=== PATIENT | male | born 1970 | race Caucasian/White ===

== ENCOUNTER 2018-09-05 06:07 | Inpatient (IN) ==
--- NOTE | 2018-09-05 07:01 | Diag Imaging Result Doc PS360 ---
EXAM: CHEST-1 VIEW HISTORY: dyspnea TECHNIQUE: Chest single view COMPARISON: 03/05/2018 FINDINGS: There is a moderate to large right-sided pleural effusion with a small left pleural effusion. No cardiomegaly. Dense infiltrates throughout the right lung with smaller infiltrates in the left lung. There is bilateral basilar atelectasis. IMPRESSION: Bilateral infiltrates with pleural effusions and atelectasis Electronically signed by Yaakov Whitlock 09/05/2018 6:59 AM
[2018-09-05 07:08] LABS: BASO# 0.02 X1000 (0.0-0.2); BASO% 0.1 % (0.0-0.8); EOS# 0.02 X1000 (0.0-0.7); EOS% 0.1 % (0.0-10.0); HEMATOCRIT 36.4 % (42.0-52.0); HEMOGLOBIN 12.9 g/dL (14.0-18.0); IMM GRAN# 0.11 X1000 (0.0-0.04); IMM GRAN% 0.5 % (0.0-0.5); LYMPH# 1.02 X1000 (1.2-3.4); LYMPH% 4.5 % (20.5-51.1); MCH 30.1 PG (27-31); MCHC 35.4 g/dL (33-37); MCV 84.8 FL (81-99); MONO# 1.68 X1000 (0.11-0.59); MONO% 7.4 % (1.7-9.3); MPV 9.7 FL (7.4-10.4); NEUT# 19.75 X1000 (1.4-6.5); NEUT% 87.4 % (42.2-75.2); PLT 366 X1000 (130-400); RBC 4.29 XMIL (4.7-6.1); RDW 12.1 % (11.5-14.5)
[2018-09-05] MEDS ORDERED: DUONEB (A & A) INH ONE (07:30)
[2018-09-05 07:35] LABS: ESTIMATED GFR > 60
[2018-09-05 07:39] LABS: AGAP 17; BUN 10 mg/dL (8-22); CHLORIDE 86 mmol/L (98-107); COSMO 248; CREATININE 0.6 mg/dL (0.7-1.2); GLUCOSE 120 mg/dL (70-104); POTASSIUM 5.3 mmol/L (3.5-5.1); SODIUM 123 mmol/L (136-145); TCO2 20 mmol/L (25-35)
--- NOTE | 2018-09-05 07:44 | PROVIDER DOCUMENTATION ---
HPI-Respiratory General - General Chief Complaint: Possible Sepsis-D Stated Complaint: SOB X A COUPLE OF DAYS/COUGH BLOOD/COPD Time Seen by Provider: 09/05/18 07:08 Source: patient, family Allergies/Adverse Reactions: Patient Allergies Allergy/AdvReac Type Severity Reaction Status Date / Time No Known Allergies Allergy Verified 02/28/18 09:07 Home Medications: Home Medication List Medication Instructions Recorded Confirmed Last Taken Type Albuterol Sulfate Inhaler 2 puff INH Q6H PRN PRN #1 inhaler 01/22/18 02/28/18 02/28/18 Rx [Ventolin Hfa] Ferrous Sulfate 325 mg PO DAILY #90 tab 01/22/18 02/28/18 02/28/18 Rx Folic Acid 1 mg PO DAILY #90 tab 01/22/18 02/28/18 02/28/18 Rx Thiamine [Vitamin B-1] 100 mg PO DAILY #60 tab 01/22/18 02/28/18 02/28/18 Rx Nicotine Patch [Nicoderm Patch] 21 mg TD DAILY #30 patch.[id number] 03/15/18 Unknown Rx Oxycodone HCl/Acetaminophen 1 each PO Q8H PRN PRN #30 tablet 03/15/18 Unknown Rx [Percocet 10-325 mg Tablet] - History of Present Illness-Resp Nature of Presenting Problem: Pt is a 48 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 The CP is present on the R side of the chest and is localized. Worse with deep breaths. The pain has been there for 2-3 days and is progressively getting worse. Pt has been needing O2 at home. Pt has been sweating more than usual. Has been coughing up blood and phlegm. Denies any fever. Quality of Pain: reports: sharp Severity in ED: reports: moderate Onset/Duration: reports: 2 days ago Timing: reports: still present, getting worse Context: denies: recent foreign travel, insect bite (possible tick) Cough Quality/Degree: reports: mild, sputum, blood streaked sputum Episode Frequency: occasional episodes Current Respiratory Medication Therapy: Initiated see nurses note Modifying Factors: improves with: coughing, deep breath, oxygen Associated Symptoms: reports: chest pain/soreness, cough, hurts to breathe, shortness of breath Similar Symptoms Previously?: Yes Recently seen or treated by another doctor?: No Review of Systems - Adult - REVIEW OF SYSTEMS - ADULT Constitutional: reports: see HPI Eyes: denies: no symptoms reported Ears, Nose, Mouth & Throat: denies: no symptoms reported Cardiovascular: reports: see HPI Respiratory: reports: see HPI Gastrointestinal: denies: no symptoms reported Genitourinary: denies: no symptoms reported Musculoskeletal: denies: no symptoms reported Integumentary: denies: no symptoms reported Neurological: denies: no symptoms reported Psychiatric: denies: no symptoms reported Endocrine: reports: see HPI Hematologic/Lymphatic: denies: no symptoms reported Allergic/Immunologic: denies: no symptoms reported Past History - Adult - PAST MEDICAL HISTORY-ADULT Review of Records: reports: Old Records Reviewed, Nursing Assessment Review, Medications Reviewed, Social history reviewed & non-contributory. Major Childhood Illnesses: reports: denies history Cardiovascular: reports: denies history Respiratory: reports: lung disease, pneumonia Gastrointestinal: reports: denies history Obstetrical/Gynecological: reports: denies history Genitourinary: reports: denies history Musculoskeletal: reports: denies history Neurological: reports: denies history Psychiatric: reports: denies history Endocrine/Immune: reports: denies history Other Conditions: reports: denies history Additional History: Fake left eye - PRIOR SURGERIES/PROCEDURES Surgical/Procedure History: reports: none, other - PRIOR HOSPITALIZATIONS Prior Hospitalizations: reports: for similar symptoms - IMMUNIZATION STATUS Childhood Immunizations: See Nurse Assessment Flu Vaccine: See Nurse Assessment - FAMILY HISTORY Family History: reviewed, not pertinent Physical Exam-General - PHYSICAL EXAM-ADULT Initial Vital Signs Reviewed: Yes - CONSTITUTIONAL General Appearance: alert, mild distress - EYES Eyes: PERRL/EOMI - HEAD, EARS, NOSE, MOUTH & THROAT HENMT: normocephalic/atraumatic - NECK Neck: full range of motion, supple - RESPIRATORY Respiratory: accessory muscle use, rhonchi, wheezing, pain on inspiration. negative: chest non-tender - CARDIOVASCULAR Cardiovascular: normal peripheral pulses, regular rate, rhythm, no edema - GASTROINTESTINAL (ABDOMEN) Abdominal Exam: non tender, soft - MUSCULOSKELETAL Extremity: no pedal edema - SKIN Integumentary: normal color, warm/dry - NEUROLOGIC Neurologic: grossly normal - PSYCHIATRIC Psych/Mental Status: normal mood/affect - HEART Score HEART Score: History: Slightly Suspicious HEART Score: ECG: Non-Specific Repolarization Disturbance/LBBB/PM HEART Score: Age: 45-65 Years HEART Score: Risk Factors for Atherosclerotic Disease: 1 or 2 Risk Factors HEART Score: Troponin: < or = Normal Limit Total HEART Score:: 3 Progress - PLAN OF CARE/RESULTS Progress/Plan/Lab Results: Vital Signs - 8 hr 09/05/18 06:19 09/05/18 08:52 Temperature 97.9 F Pulse Rate 119 H Respiratory Rate 22 Blood Pressure 137/83 O2 Sat by Pulse Oximetry 88 L 92 L 09/05/18 08:28 Influenza Screen - Final Nasopharyngeal Laboratory Results - last 24 hr 09/05/18 09/05/18 09/05/18 06:47 06:47 06:47 WBC 22.60 H RBC 4.29 L Hgb 12.9 L Hct 36.4 L MCV 84.8 MCH 30.1 MCHC 35.4 RDW Std Deviation 12.1 Plt Count 366 MPV 9.7 Immature Gran % (Auto) 0.5 Neut % (Auto) 87.4 H Lymph % (Auto) 4.5 L [place] % (Auto) 7.4 Eos % (Auto) 0.1 Baso % (Auto) 0.1 Immature Gran # (Auto) 0.11 H Neut # (Auto) 19.75 H Lymph # (Auto) 1.02 L [place] # (Auto) 1.68 H Eos # (Auto) 0.02 Baso # (Auto) 0.02 Sodium 123 L Potassium 5.3 H Chloride 86 L Carbon Dioxide 20 L Anion Gap 17 BUN 10 Creatinine 0.6 L Estimated GFR/1.73 m2 > 60 BUN/Creatinine Ratio 17 Glucose 120 H Calculated Osmolality 248 Calcium 9.0 Troponin T < 0.010 [id number]-Sqfueynbpbi Pept Plasma Lactate 09/05/18 09/05/18 06:47 06:57 WBC RBC Hgb Hct MCV MCH MCHC RDW Std Deviation Plt Count MPV Immature Gran % (Auto) Neut % (Auto) Lymph % (Auto) [place] % (Auto) Eos % (Auto) Baso % (Auto) Immature Gran # (Auto) Neut # (Auto) Lymph # (Auto) [place] # (Auto) Eos # (Auto) Baso # (Auto) Sodium Potassium Chloride Carbon Dioxide Anion Gap BUN Creatinine Estimated GFR/1.73 m2 BUN/Creatinine Ratio Glucose Calculated Osmolality Calcium Troponin T Pfl-[id number]-Wokpnfcsiwn Pept 3769 H Plasma Lactate 1.7 Orders Category Date Time Status IV Insertion ORDERED Care 09/05/18 06:36 Completed cxr [CHEST-1 VIEW] [RAD] Stat Exams 09/05/18 06:36 Completed BASIC METABOLIC PANEL [CHEM] Stat Lab 09/05/18 06:47 Completed BLOOD CULTURE [BLDCUL] Stat Lab 09/05/18 06:57 Ordered CBC WITH DIFF [HEME] Stat Lab 09/05/18 06:47 Completed INFLUENZA SCREEN A/B Stat Lab 09/05/18 08:28 Completed LACTATE, PLASMA [CHEM] Stat Lab 09/05/18 06:57 Completed TROPONIN T Stat Lab 09/05/18 06:47 Completed pro-bnp [PRO B-NATRIURETIC PEPTIDE] Stat Lab 09/05/18 06:47 Completed Albuterol 2.5MG/Ipratrop 0.5MG [Duoneb (A & A)] Med 09/05/18 07:30 Discontinued 3 ml INH NOW ONE Azithromycin 500 mg/Ns [Zithromax 500 mg/Ns] Med 09/05/18 08:50 Active 500 mg in 250 ml IV NOW CefTRIAXONE [Rocephin] 1 gm Med 09/05/18 08:50 Discontinued 0.9% Sodium Chloride Inj [Ns] 50 ml IV NOW Aerosol Treatments Routine Oth 09/05/18 07:30 Completed Aerosol Treatments Stat Oth 09/05/18 07:30 Completed EKG [EKG] Stat Ther 09/05/18 06:19 Ordered Result Diagrams: 09/05/18 06:47 09/05/18 06:47 - CONSULTS/PCP/HOSPITALIST Notification #1 *Consult/PCP/Hospitalist*: Alessandra Time Discussed: 09:40 Reason/Comments: Admission Consult Disposition: Will see in ED (d/w Alessandra JONES, will see the pt in ER.) Departure - Departure Date of Disposition Decision: 09/05/18 Time of Disposition Decision: 09:40 DIAGNOSIS: Pneumonia, Pleural effusion, Shortness of breath, Hyperkalemia Disposition: ADMITTED INPATIENT 09 Certified Medical Emergency: Emergent Condition: Stable Referrals and Follow-Ups: None,PCP [Primary Care Provider] - - Critical Care Note This patient required my direct & personal management of CC.: No Attestation - Physician/ LIANE Attestation Patient care was provided by Advanced Practice Provider:: No The physician spent face to face time with patient:: Yes Advanced Practice Provider documentation review:: Supervising physician onsite and consulted in the evaluation and care of this patient. The physician did have a face to face encounter with the patient.
[2018-09-05] MEDS ORDERED: ROCEPHIN 1 GM in NS 50 ML IV ONE (08:50)
[2018-09-05] MEDS ORDERED: ZITHROMAX 500 MG/NS 500 MG/250 ML IVPB IV ONE (08:50)
[2018-09-05] MEDS ORDERED: ZOFRAN IV PRN (10:29)
[2018-09-05] MEDS ORDERED: M.V.I.-12 10 ML, FOLIC ACID 1 MG, MAGNESIUM SULFATE 1 GM, THIAMINE 100 MG in NS 1,000 ML IV ONE (10:33)
[2018-09-05] MEDS ORDERED: DUONEB (A & A) INH PRN (10:38)
[2018-09-05] MEDS ORDERED: LIBRIUM PO SCH (10:45)
--- NOTE | 2018-09-05 11:00 | Diag Imaging Result Doc PS360 ---
EXAM: CT THORAX W/O CONTRAST HISTORY: right pleural effusion s/p pleurodesis TECHNIQUE: CT chest without contrast COMPARISON: 03/06/2018 FINDINGS: There is a moderate to large right-sided pleural effusion measuring 7.4 cm posteriorly and inferiorly in the midline. This is similar to the prior exam. There is a small left pleural effusion which is slightly larger than on the prior study. There are dense multifocal bilateral nodular infiltrates. Infiltrates and atelectasis are most prominent within the right upper and lower lobes. The heart is not enlarged. No thoracic aortic aneurysm. There are markedly enlarged axillary lymph nodes similar to the prior exam there are enlarged mediastinal and hilar lymph nodes fairly similar to the prior exam. Previously there was a left-sided chest tube. This has been removed. No pneumothorax on the current exam. IMPRESSION: 1.Dense multifocal nodular infiltrates/nodules more pronounced than on the prior study 2.Large right pleural effusion similar to the prior study 3.Small left pleural effusion which is slightly larger than the prior study 4.Enlarged axillary and mediastinal lymph nodes similar to the prior study 5.Prominent atelectasis in the right lower lobe This exam was performed using automated exposure control, adjustment of mA or kV according to patient size, and/or use of iterative reconstruction technique. Electronically signed by Yaakov Whitlock 09/05/2018 10:57 AM
[2018-09-05] MEDS ORDERED: LIDODERM TOP ONE (11:23)
[2018-09-05] MEDS ORDERED: VANCOMYCIN IV PER PHARMACY MISC SCH (11:30)
[2018-09-05] MEDS: DUONEB (A & A) INH SCH ×4 (11:54→23:35)
--- NOTE | 2018-09-05 11:56 | HISTORY AND PHYSICAL ---
ADDENDUM: I agree with most components of history, physical, assessment, and plan. In brief, Mr. Beltran is a 48-year-old, man with a past history of Castleman's disease, bilateral pleural effusion, status gross pleurodesis bilaterally in March 2018. Comes in with progressive shortness of breath, cough with expectoration, hemoptysis, and right-sided chest pain of 2 weeks' duration which was getting significantly worse over the last 48 hours. SUBJECTIVE: He is complaining of right-sided chest pain which gets worse while lying down and on respiration. His family is at bedside including who is a surrogate decision maker. All of their questions have been answered. He states that his last 48 hours, every time he coughs up, he is producing blood-tinged sputum. VITAL SIGNS: Currently suggest temperature of 97.9 degrees, pulse 119, respiratory rate 22, blood pressure 140/83, saturating 92% on 3 L nasal cannula. PHYSICAL EXAMINATION: He does not appear in any acute distress except mild distress because of pain and shortness of breath. Oral cavity has oral thrush. No pallor, cyanosis, clubbing, or icterus. He has artificial eye on the left. Right pupil is adequately reacting to light. Significantly decreased air entry in the right infrascapular region with inspiratory crackles and dullness to percussion. Adequate air entry on left hemithorax except left base where it has inspiratory crackles. S1, S2 normal. Tachycardic. No murmur, rub, or gallop. Abdomen is soft, nontender. Bilateral lower extremity edema. LABS: Labs are significant for leukocytosis, normocytic anemia, hyponatremia, hyperkalemia, hypochloremia, low bicarbonate, normal BUN and creatinine, elevated proBNP, normal lactate. Blood culture is in lab. Sputum culture is pending. CT scan of the chest reviewed which had suggested dense multifocal nodular infiltrates on the right side, large right-sided pleural effusion, small left-sided pleural effusion, enlarged axillary and mediastinal lymph nodes. ASSESSMENT AND PLAN: 1. Sepsis due to right lung pneumonia. Start him on intravenous vancomycin and Zosyn. Follow up blood cultures, sputum cultures. 2. Recurrent right pleural effusion. We will consult surgery and according to their recommendation, we will obtain ultrasound thoracentesis and we will send pleural fluid for infectious etiology analysis. 3. Oral thrush. We will treat it with nystatin. 4. Volume overloaded bilateral edema of lower extremities and elevated proBNP. We will start him on intravenous Lasix. 5. Hyponatremia, Hypochloremia, hyperkalemia: Monitor serial BMP. 6. Alcohol abuse and tobacco abuse. Continue thiamine and multivitamin. 5. Disposition. I will admit the patient to the hospital for close monitoring of his cardiorespiratory status. Plan of care discussed with the patient and patient's at bedside. All of their questions have been answered. cc: Rex Cobos MD MTDD
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
--- NOTE | 2018-09-05 14:55 | GENERAL SURGERY CONSULTATION ---
DATE: 09/05/2018 REQUESTING PHYSICIAN: Hospitalist service. REASON FOR CONSULTATION: Recurrent pleural effusion. HISTORY OF PRESENT ILLNESS: A 48-year-old male with a history of Castleman's disease who presents now with chest pain and shortness of breath. He had been seen by my partner, Dr. Jay previously in the past and has had a chemical pleurodesis and drainage, but he has developed reaccumulation on the right side. He had a CT scan of his chest, which confirms multifocal nodular infiltrates in the lung and large right pleural effusion with lymphadenopathy. I was asked to weigh an opinion. PAST MEDICAL HISTORY: 1. Castleman's. 2. Hypertension. PAST SURGICAL HISTORY: Includes previous chest tubes with chemical pleurodesis. SOCIAL HISTORY: Current smoker. HOME MEDICATIONS: 1. Albuterol. 2. Iron. 3. Folic acid. 4. Thiamines. 5. Nicotine patch. 6. Oxycodone ALLERGIES: None. FAMILY HISTORY: Reviewed with the patient and noncontributory. REVIEW OF SYSTEMS: A full 10 point review of systems obtained negative except as specified in HPI. PHYSICAL EXAMINATION: Vital Signs: Patient is currently afebrile. His vital signs stable. General: No acute distress but appears chronically ill male, looks stated age. HEENT: Normocephalic, atraumatic. Pupils equal, round, reactive to light. Mucous membranes moist. Oropharynx benign. Neck: Supple, trachea midline. Cardiovascular: Regular rate and rhythm. Lungs: Decreased breath sounds noted to the right. Abdomen: Soft nontender nondistended. Extremities: Moves all extremities. Neurologic: Grossly intact. Skin: No signs of jaundice. Vascular: All extremities perfused. LABORATORY: White blood cell count 22,000, platelet count 366,000 sodium is 123, potassium is 5.3. BNP is almost 3700. CT scan and radiographic images reviewed and noted above. ASSESSMENT AND PLAN: A 48-year-old gentleman with recurrent pleural effusion in the setting of Castleman's syndrome. 1. Multiple medical comorbidities currently being managed by the hospitalist service. 2. Recurrent pleural effusion. At this time, patient wants to proceed with thoracentesis first but I imagine he is likely going to need something like a PleurX catheter. We will proceed with thoracentesis tomorrow by Radiology. We will continue supportive care for now. cc: Luis Kirk MD
[2018-09-05 15:12] LABS: INR 0.96; PROTIME 13.5 Seconds (11.0-16.0)
[2018-09-05] MEDS ORDERED: VANCOMYCIN 2 GM in NS 500 ML IV ONE (18:00)
[2018-09-05] MEDS: ZOSYN 3.375 GM in NS 50 ML IV SCH ×2 (18:29→18:30)
[2018-09-05] MEDS: LASIX IV SCH ×2 (18:30→20:04)
[2018-09-05] MEDS: MYCOSTATIN SUSP PO SCH ×2 (18:31→22:25)
[2018-09-05] MEDS ORDERED: NS 500 ML ONE (19:21)
[2018-09-05] MEDS: MORPHINE IV PRN (20:05)
[2018-09-05 20:21] LABS: AGAP 11; BUN 11 mg/dL (8-22); CALCIUM 8.7 mg/dL (8.8-10.2); CHLORIDE 89 mmol/L (98-107); COSMO 252; CREATININE 0.7 mg/dL (0.7-1.2); ESTIMATED GFR > 60; GLUCOSE 91 mg/dL (70-104); POTASSIUM 4.4 mmol/L (3.5-5.1); SODIUM 126 mmol/L (136-145); TCO2 26 mmol/L (25-35)
[2018-09-05] MEDS: ULTRAM PO PRN (22:24)
[2018-09-06] MEDS: MORPHINE IV PRN ×4 (00:54→20:49)
[2018-09-06] MEDS: ZOSYN 3.375 GM in NS 50 ML IV SCH ×5 (01:27→23:27)
[2018-09-06] MEDS: ULTRAM PO PRN ×5 (02:43→22:33)
[2018-09-06] MEDS: DUONEB (A & A) INH SCH ×6 (03:40→23:06)
[2018-09-06] MEDS ORDERED: TYLENOL PO PRN (05:17)
[2018-09-06] MEDS: VANCOMYCIN 1,500 MG in NS 250 ML IV SCH ×2 (06:04→18:49)
--- NOTE | 2018-09-06 07:24 | EKG Report ---
Test Performed on : 09/06/2018 05:28:22 AM Test Reason : Tachycardia Blood Pressure : / mmHG Vent. Rate : 130 BPM Atrial Rate : 130 BPM P-R Int : 134 ms QRS Dur : 082 ms QT Int : 294 ms P-R-T Axes : 066 075 052 degrees QTc Int : 432 ms Sinus tachycardia. Possible Left atrial enlargement Borderline ECG When compared with ECG of 05-SEP-2018 06:33, (Unconfirmed) No significant change was found Confirmed by Samra ELIZONDO, Jason ([id number]) on 09/06/2018 9:08:02 AM
[2018-09-06 07:32] LABS: BASO# 0.03 X1000 (0.0-0.2); BASO% 0.2 % (0.0-0.8); EOS# 0.24 X1000 (0.0-0.7); EOS% 1.7 % (0.0-10.0); HEMOGLOBIN 12.5 g/dL (14.0-18.0); IMM GRAN# 0.08 X1000 (0.0-0.04); IMM GRAN% 0.6 % (0.0-0.5); LYMPH# 0.53 X1000 (1.2-3.4); LYMPH% 3.7 % (20.5-51.1); MCH 30.2 PG (27-31); MCHC 34.7 g/dL (33-37); MONO% 8.5 % (1.7-9.3); NEUT# 12.08 X1000 (1.4-6.5); NEUT% 85.3 % (42.2-75.2); PLT 336 X1000 (130-400); RBC 4.14 XMIL (4.7-6.1); RDW 12.6 % (11.5-14.5); WBC 14.16 X1000 (4.8-10.8)
[2018-09-06 07:33] LABS: AGAP 14; ALB/GLOB RATIO 1.3; ALBUMIN 3.4 g/dL (3.5-5.0); ALKALINE PHOSPHATASE 138 U/L (32-122); BUN 14 mg/dL (8-22); CALCIUM 8.4 mg/dL (8.8-10.2); CHLORIDE 87 mmol/L (98-107); COSMO 253; ESTIMATED GFR > 60; GLUCOSE 158 mg/dL (70-104); GOT 42 U/L (10-34); GPT 13 U/L (10-44); POTASSIUM 4.5 mmol/L (3.5-5.1); SODIUM 124 mmol/L (136-145); TCO2 23 mmol/L (25-35)
--- NOTE | 2018-09-06 07:38 | EKG Report ---
Test Performed on : 09/05/2018 06:33:09 AM Test Reason : shortness of breath and chest pain Blood Pressure : / mmHG Vent. Rate : 110 BPM Atrial Rate : 110 BPM P-R Int : 126 ms QRS Dur : 092 ms QT Int : 336 ms P-R-T Axes : 072 014 041 degrees QTc Int : 454 ms Sinus tachycardia. Cannot rule out Anterior infarct , age undetermined Abnormal ECG When compared with ECG of 28-FEB-2018 08:23, No significant change was found Unconfirmed Result
[2018-09-06 08:02] LABS: BANDS 4 % (0-1); EOS 4 % (1-10); LYMPHS 4 % (21-51); MONO 4 % (1-9); SEGS 84 % (42-75)
[2018-09-06] MEDS ORDERED: ZITHROMAX PO SCH (09:00)
[2018-09-06] MEDS ORDERED: ROCEPHIN 1 GM in NS 50 ML IV SCH (09:00)
--- NOTE | 2018-09-06 09:36 | GENERAL SURGERY PROGRESS NOTE ---
DATE: 09/06/2018 SUBJECTIVE: Patient doing okay. He has had a run of tachycardia in the 140s after a coughing spell. He is currently getting an EKG. He denies any kind of other issues. OBJECTIVE: Vital Signs: Patient is currently afebrile. Again, his heart rate is in the 140s. Blood pressure is stable. General: No acute distress. HEENT: Normocephalic, atraumatic. Pupils equal, round, reactive to light. Mucous membranes moist. Oropharynx benign. Neck: Supple, trachea midline. Cardiovascular: Tachycardic in the 140s. Lungs: No real significant change. Still with decreased breath sounds on the right with coarse sounds noted bilaterally. Abdomen: Soft, nontender, nondistended. Extremities: Moves all extremities. Neurologic: Grossly intact. Skin: No signs of jaundice. Vascular: All extremities perfused. LABORATORY: None this morning as of yet. ASSESSMENT/PLAN: 48-year-old male with recurrent effusion with Castleman's disease. At this time, we will try to get thoracentesis on the right side by Radiology. He might ultimately require PleurX catheter since he has had a chemical pleurodesis in the past. We will continue to follow. cc: Luis Kirk MD
[2018-09-06] MEDS: LASIX IV SCH ×2 (09:40→20:48)
[2018-09-06] MEDS: MYCOSTATIN SUSP PO SCH ×4 (09:40→20:49)
--- NOTE | 2018-09-06 14:19 | Diag Imaging Result Doc PS360 ---
EXAM: CHEST-2 VIEWS 09/06/2018 HISTORY: TO FOLLOW THORACENTESIS PATIENT DONE TECHNIQUE: Inspiratory and expiratory chest following right-sided thoracentesis COMMENT: The large right pleural fluid collection which was present on 09/05/2018 has diminished considerably in volume following thoracentesis. There is still a fair amount of retained fluid. There is pleural thickening or loculated fluid on the left as well. There is alveolar opacity throughout much of the right lung and in the mid left lung. The lung is better expanded on the right. There is no evidence of pneumothorax. IMPRESSION: Improved right pleural effusion. No evidence of pneumothorax. Electronically signed by Joaquin Vargas 09/06/2018 2:17 PM
--- NOTE | 2018-09-06 14:23 | Diag Imaging Result Doc PS360 ---
EXAM: US THORACENTESIS W/IMAGE GUIDE 09/06/2018 HISTORY: Recurrent right sided pleural effusion TECHNIQUE: Right ultrasound-guided thoracentesis COMMENT: The risks and benefits of the procedure including the possibility of bleeding infection and pneumothorax or reaction to lidocaine was discussed with the patient and he agreed to the procedure. Following sterile preparation the skin posteriorly and administration 1% lidocaine to the skin and deeper soft tissues, the thoracentesis catheter was placed and subsequently 1400 mL of grossly bloody fluid was aspirated. There are no immediate complications. IMPRESSION: Successful ultrasound-guided right thoracentesis. Electronically signed by Joaquin Vargas 09/06/2018 2:20 PM
[2018-09-06 14:50] LABS: BODY FLUID SOURCE PLEURAL FLUID
[2018-09-06 15:06] LABS: GLUCOSE BODY FLUID 2 mg/dL; TOTAL PROT BODY FLUID 3.2 g/dL
[2018-09-06 15:17] LABS: LDH BODY FLUID 1501 U/L
[2018-09-06 15:19] LABS: BODY FLUID SOURCE PLEURAL FLUID
[2018-09-06 15:20] LABS: WBC BF 597 /cumm
[2018-09-06 15:21] LABS: MONOS 3 %; POLYS 97 %
--- NOTE | 2018-09-06 16:24 | PROGRESS NOTE ---
DATE: 09/06/2018 SUBJECTIVE: Overnight events. Mr. Beltran had an episode of tachycardia when he had a coughing spell and heart rate had increased to 140. The EKG suggests sinus tachycardia. I saw the patient right after his thoracentesis. He feels a little better than he was before. His shortness of breath is also better. We discussed about his pneumonia, pleural fluid, lower extremity edema, his Castleman disease, and probably need for the Pleurx catheter. Family is at bedside. All of their questions have been addressed. OBJECTIVE: Vital Signs: Currently, vital signs detect temperature of 98.9 degrees, pulse 123, respiratory rate 20, blood pressure 120/72 saturating 97% on 5 L nasal cannula. General: On physical examination, he does not appear in any acute distress. His oral thrush is present. Lungs: Air entry bilaterally equal in suprascapular region. He does have decreased air entry with inspiratory crackles bilateral infrascapular region, however, improved air entry on the right infrascapular region as compared to before. Heart: His S1, S2 was normal. He has sinus tachycardia on bedside monitor. Abdomen: Soft. Nontender. Extremities: Bilateral lower extremity edema. He has right pupil adequately reacting to light. He has artificial eye on the left eye. He is alert and oriented x3. LABORATORY: Labs suggestive of improving leukocytosis. Normocytic anemia. Normal platelet count. Persistent hyponatremia. Hypochloremia. Stable kidney function. He also has elevated alkaline phosphatase and LDH with elevated proBNP and hypoproteinemia. The pleural fluid analysis is pending. ASSESSMENT AND PLAN: 1. Sepsis due to right lung pneumonia. Follow up blood culture, sputum culture, and pleural fluid culture results. Continue intravenous vancomycin and intravenous Zosyn. 2. Acute hypoxic respiratory failure in the setting of right lung pneumonia as well as bilateral pleural effusions, predominantly on the right. Continue oxygenation to maintain saturation more than 94%. He is now status post thoracentesis on the right side. Surgery on board for long-term management of recurrent right pleural effusion. 3. Oral thrush. Continue nystatin. Continue intravenous diuretics for acute hypoxic respiratory failure, and also for bilateral lower extremity edema. 4. Alcohol abuse. He denies known history of alcohol withdrawal. I will hold off on giving any benzodiazepine for now. Continue him on thiamine and folic acid. 5. Chest pain. Continue him on tramadol as needed, and I will order lidocaine patch. 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 We will consult Hemonc as needed. 6. Continue history of chronic obstructive pulmonary disease. Continue him on albuterol and ipratropium nebulization. 7. Disposition: Patient remains inside the hospital. Considering his persistent hypoxia and tachycardia, I will initiate transfer to [facility]. Plan of care discussed with the patient and his at bedside. All of their questions have been answered. cc: Rex Cobos MD MTDD
[2018-09-07] MEDS: MORPHINE IV PRN ×6 (01:38→21:30)
[2018-09-07] MEDS: ULTRAM PO PRN ×5 (02:47→19:15)
[2018-09-07] MEDS: DUONEB (A & A) INH SCH ×6 (03:09→23:20)
[2018-09-07] MEDS: ZOSYN 3.375 GM in NS 50 ML IV SCH ×4 (04:30→22:44)
[2018-09-07] MEDS: VANCOMYCIN 1,500 MG in NS 250 ML IV SCH ×2 (05:04→19:15)
[2018-09-07 05:44] LABS: BASO# 0.03 X1000 (0.0-0.2); BASO% 0.3 % (0.0-0.8); EOS# 1.18 X1000 (0.0-0.7); EOS% 11.1 % (0.0-10.0); HEMATOCRIT 32.8 % (42.0-52.0); HEMOGLOBIN 11.1 g/dL (14.0-18.0); IMM GRAN# 0.07 X1000 (0.0-0.04); IMM GRAN% 0.7 % (0.0-0.5); LYMPH# 0.88 X1000 (1.2-3.4); LYMPH% 8.3 % (20.5-51.1); MCHC 33.8 g/dL (33-37); MCV 88.6 FL (81-99); MONO# 1.58 X1000 (0.11-0.59); MONO% 14.8 % (1.7-9.3); MPV 9.9 FL (7.4-10.4); NEUT% 64.8 % (42.2-75.2); PLT 282 X1000 (130-400); RDW 12.7 % (11.5-14.5); WBC 10.64 X1000 (4.8-10.8)
[2018-09-07 06:10] LABS: AGAP 11; BUN 22 mg/dL (8-22); CALCIUM 8.2 mg/dL (8.8-10.2); CHLORIDE 88 mmol/L (98-107); COSMO 259; CREATININE 0.9 mg/dL (0.7-1.2); ESTIMATED GFR > 60; GLUCOSE 148 mg/dL (70-104); PHOSPHORUS 2.8 mg/dL (2.7-4.5); POTASSIUM 3.7 mmol/L (3.5-5.1); SODIUM 126 mmol/L (136-145); TCO2 27 mmol/L (25-35)
[2018-09-07] MEDS: LASIX IV SCH ×2 (08:03→20:02)
[2018-09-07] MEDS: KLOR-CON PO SCH ×2 (08:03→11:06)
[2018-09-07] MEDS: THERA M PLUS PO SCH (08:03)
[2018-09-07] MEDS: VITAMIN B-1 PO SCH (08:03)
[2018-09-07] MEDS: MYCOSTATIN SUSP PO SCH ×4 (08:03→20:02)
--- NOTE | 2018-09-07 08:53 | GENERAL SURGERY PROGRESS NOTE ---
DATE: 09/07/2018 SUBJECTIVE: Patient doing okay. He was transferred to the CICU secondary to tachycardia, but he seems to be doing better. He did have 1400 mL of fluid drawn off by ultrasound-guided thoracentesis. OBJECTIVE: Vital Signs: Patient is currently afebrile. Heart rate in the 1-teens, but looks regular. Blood pressure stable. General: No acute distress. HEENT: Normocephalic, atraumatic. Pupils equal, round, reactive to light. Mucous membranes moist. Oropharynx benign. Neck: Supple trachea midline. Cardiovascular: Regular rate and rhythm with some mild tachycardia. Lungs: Grossly clear. Abdomen: Soft, nontender, nondistended. Extremities: Moves all extremities. Neurologic: Grossly intact. Skin: No signs of jaundice. Vascular: All extremities perfused. ASSESSMENT AND PLAN: A 48-year-old status post thoracentesis of the right chest. Status post thoracentesis. At this time patient seems to be breathing okay. We would like to see what the chest x-ray in the next couple of days looks like to see if he is reaccumulating fluid. Otherwise, continue supportive care. cc: Luis Kirk MD
--- NOTE | 2018-09-07 11:23 | PROGRESS NOTE ---
DATE: 09/07/2018 INTERVAL HISTORY: Mr. Beltran was transferred to [facility]. He had tolerated ultrasound-guided thoracentesis. He did not have any other acute overnight events. He does not have any more hemoptysis. I discussed with him about consulting his hematology oncologist using incentive spirometry and I also discussed with him about following up with the pleural fluid culture results. His heart rate has been trending down slowly currently. OBJECTIVE: Vital signs: Temperature of 98.3 degrees, pulse of 101, respiratory rate 20, blood pressure of 108/72. He is saturating 90% 5 to 6 L nasal cannula. General: On physical examination, he does not appear in any acute distress. HEENT: His oral thrush is improved. Lungs: Significantly decreased air entry bilateral infrascapular region with inspiratory crackles. However, improved from my previous examination. Cardiovascular: S1, S2 normal. Tachycardic. No murmur, rub, or gallop. Abdomen: Soft, nontender. Extremities: Bilateral lower extremity edema is present. Neurologic: Right pupil adequately reacting to light. Left has an artificial eye. He is alert and oriented x3. LABORATORY DATA: Suggesting resolution of leukocytosis, normocytic anemia, normal platelet count, hyponatremia, hypochloremia. Stable kidney function. MICROBIOLOGY: His pleural fluid, sputum and blood cultures are in lab. So far no growth to date. ASSESSMENT AND PLAN: 1. Sepsis due to right lung pneumonia leading to acute hypoxic respiratory failure because of predominantly right-sided pleural effusion and persistent left-sided pleural effusion. Follow up culture data. Initial pleural fluid analysis suggests exudative pleural fluid. Continue intravenous vancomycin, intravenous Zosyn, oxygenation to maintain saturation more than 92%. 2. Status post thoracenteses on 09/06/2018. Surgery on board for evaluating the need for possible surgical intervention since he failed bilateral pleurodesis in March 2018 and now has recurrence of his pleural effusion. I will also consult Hematology Oncology considering his right lung patchy nodules to see if his Castleman disease is contributing. 3. Oral thrush. Continue nystatin. 4. Continue intravenous diuretics for acute hypoxic respiratory failure and bilateral lower extremity edema. I will appreciate Hematology Oncology recommendation if I should consider repeat echocardiogram if he was on doxorubicin for his Castleman's. 5. Alcohol abuse. He denies known history of alcohol withdrawal. Continue thiamine and folic acid. OTHER PROBLEMS: 1. Chest pain, improved. 2. Castleman disease. Appreciate Hematology Oncology recommendation. 3. History of chronic obstructive pulmonary disease. Continue home albuterol ipratropium nebulization. 4. Disposition. The patient's condition remains stable. However, he is still requiring a lot of oxygen. I will follow up with chest x-ray in next 48 hours. Continue oxygenation and continue to monitor him in [facility]. Plan of care discussed with him. I will also get incentive spirometer, Physical Therapy evaluation. cc: Rex Cobos MD
[2018-09-07] MEDS ORDERED: ATIVAN PO ONE (21:43)
[2018-09-08] MEDS: MORPHINE IV PRN ×6 (01:24→21:51)
[2018-09-08] MEDS: ULTRAM PO PRN ×6 (02:39→22:34)
[2018-09-08] MEDS: DUONEB (A & A) INH SCH ×6 (03:22→23:30)
[2018-09-08] MEDS: ZOSYN 3.375 GM in NS 50 ML IV SCH ×4 (04:35→22:54)
[2018-09-08] MEDS: VANCOMYCIN 1,500 MG in NS 250 ML IV SCH ×2 (05:30→17:30)
--- NOTE | 2018-09-08 05:52 | GENERAL SURGERY PROGRESS NOTE ---
DATE: 09/08/2018 SUBJECTIVE: The patient seems to be doing okay. He is eating his Doritos in his bed. OBJECTIVE: Vital Signs: The patient is currently afebrile. He has a low-grade tachycardia, but his blood pressure remains stable. General: No acute distress. HEENT: Normocephalic, atraumatic. Pupils equal, round, and reactive to light. Mucous membranes moist. Oropharynx benign. Neck: Supple. Trachea midline. Cardiovascular: Mild tachycardia. Lungs: Breath sounds noted bilaterally. No increased labored breathing. Abdomen: Soft, nontender, nondistended. Extremities: Moves all extremities. Neurologic: Grossly intact. Skin: No signs of jaundice. Vascular: All extremities perfused. ASSESSMENT AND PLAN: A 48-year-old gentleman, with status post thoracentesis for the right chest with Castleman's disease. Status post thoracentesis: At this time we will follow up a chest x-ray ordered for tomorrow. We will continue current treatment. We will monitor him. cc: Luis Kirk MD
[2018-09-08] MEDS: LASIX IV SCH ×2 (08:51→17:29)
[2018-09-08] MEDS: THERA M PLUS PO SCH (08:51)
[2018-09-08] MEDS: VITAMIN B-1 PO SCH (08:51)
[2018-09-08] MEDS: MYCOSTATIN SUSP PO SCH ×4 (08:51→21:54)
[2018-09-08 10:28] LABS: AGAP 10; BUN 16 mg/dL (8-22); CALCIUM 8.5 mg/dL (8.8-10.2); CHLORIDE 94 mmol/L (98-107); COSMO 268; CREATININE 0.7 mg/dL (0.7-1.2); ESTIMATED GFR > 60; GLUCOSE 135 mg/dL (70-104); POTASSIUM 3.8 mmol/L (3.5-5.1); SODIUM 132 mmol/L (136-145); TCO2 28 mmol/L (25-35)
[2018-09-08] MEDS ORDERED: LASIX IV SCH (10:31)
--- NOTE | 2018-09-08 11:11 | PROGRESS NOTE ---
DATE: 09/08/2018 INTERVAL HISTORY: No acute events. He continues to require 5 to 6 L of oxygen and saturating only in the low 90s. However, he does not appear short of breath. He denies any chest pain. His hemoptysis has decreased, and he does not have any new complaints. We discussed about negative pleural fluid studies so far. I answered all of his questions currently. VITALS: Detect temperature of 98.3 degrees, pulse 114, blood pressure 124/70, saturating 91% on 6 L nasal cannula. PHYSICAL EXAMINATION: General: Does not appear in any acute distress. No pallor, cyanosis, clubbing, or icterus. Mouth: Oral thrush has significantly improved. Respiratory: Significantly decreased air entry with inspiratory crackles in bilateral infrascapular region, more pronounced on the right than on the left. Cardiovascular: S1, S2 normal. Tachycardic. Sinus on bedside monitor. No murmur, rub, or gallop. Abdomen: Soft, nontender. Extremities: Bilateral lower extremity edema which is not improved. Neurologic: Right pupil adequately reacting to light. His left eye is an artificial eye. He is alert and oriented x3. INPUT AND OUTPUT: Suggest -1.9 L yesterday, -300 mL so far today. LABS: His D-dimer is elevated. His hyponatremia hypochloremia is improving. He has normal kidney function. MICROBIOLOGY: So far culture results including sputum, blood and pleural fluid have been unremarkable. ASSESSMENT AND PLAN: 1. Sepsis due to suspected right lung pneumonia leading to acute hypoxic respiratory failure. He has predominantly right-sided pleural effusion and small to moderate left- sided pleural effusion that are also contributing factors. Continue intravenous vancomycin and intravenous Zosyn. Follow up with final pleural sputum and blood culture results, and stop antibiotics accordingly. Pleural fluid analysis is suggestive of exudative fluid, which could be in the setting of parapneumonic effusion versus his Castleman's disease. Considering his persistent hypoxemia and elevated D-dimer, I will also get CT PE to rule out pulmonary embolism. He is status post thoracenteses. Surgery on board to decide if he would need surgical intervention/ need a PleurX catheter since his right-sided pleural effusion recurred after pleurodesis in March 2018. Hematology/Oncology is also on board. 2. History of Castleman's disease on chemotherapy, which was diagnosed in 2018. Hematology/Oncology on board. This is an inflammatory disease with lymphoproliferative features. His exudative parapneumonic effusion could be related to Castleman's disease. Also, his lung nodule on the chest CT could also be related to his Castleman's disease. However, I will follow up with final pleural fluid culture results. Continue intravenous diuretic and increase the dose since he has not been significantly net negative so far. 3. Alcohol abuse without any history of alcohol withdrawal. Continue thiamine and folic acid. 4. History of chronic obstructive pulmonary disease. Continue home albuterol ipratropium nebulization. His chest pain on admission has resolved. 5. Disposition: The patient's condition remains stable. Though he does not appear short of breath, he is requiring significant oxygenation. I will get the CT scan to rule out pulmonary embolism today. Plan is to continue to monitor him in [facility], and also I am awaiting further surgery recommendation based on the CAT scan imaging since his pleural effusion, especially on the right side, recurred despite pleurodesis. cc: MD ERIS Richards
--- NOTE | 2018-09-08 14:31 | Diag Imaging Result Doc PS360 ---
EXAM: CT ANGIOGRM PULMONARY ARTERIES INDICATION: Persistent Hypoxia. H/o Lymphoproliferative disease TECHNIQUE: This exam was performed using automated exposure control, adjustment of mA or kV according to patient size, and/or use of iterative reconstruction technique. Thin section axial images and 3-D MIPS were obtained. COMPARISON: 01/18/2018 FINDINGS: There is no evidence of pulmonary embolism. There is no evidence of aortic dissection or aneurysm. There is stable cardiomegaly. There is extensive mediastinal, hilar, bilateral axillary, and bilateral supraclavicular lymphadenopathy. This has worsened during the interval. For reference, there is a prominent supraclavicular lymph node on the left measuring up to 3.3 x 2.8 cm axially (2.5 x 2.5 cm previously). Limited views of the upper abdomen reveal splenomegaly that is similar to the previous study. Epigastric lymphadenopathy appears to be slightly worse. There is very dense consolidation throughout the right lung with confluent masslike densities throughout the right lung. This process has worsened during the interval. There is milder consolidation on the left along with several masslike densities similar to the right. For reference, there is a mass in the left lower lobe on image 96 of series 5 measuring up to 3.3 x 2.5 cm axially. There is a large right pleural effusion that appears to be partially loculated. There is also a smaller loculated effusion at the anterior left lung base. There is no pneumothorax. IMPRESSION: 1.Bilateral consolidation that is much worse on the right. Multiple masslike densities on the right that were also seen previously have become confluent. Several smaller masses on the left are again identified. 2.Large right pleural effusion and smaller loculated left effusion. 3.Severe mediastinal, hilar, axillary, supraclavicular, and upper abdominal lymphadenopathy as well as splenomegaly that has worsened during the interval. 4.No evidence of pulmonary embolism. Electronically signed by Nam Martinez 09/08/2018 2:28 PM
[2018-09-09] MEDS: LASIX IV SCH ×2 (00:20→08:45)
[2018-09-09] MEDS: MORPHINE IV PRN ×2 (01:32→05:32)
[2018-09-09] MEDS: ULTRAM PO PRN ×2 (02:30→06:51)
[2018-09-09] MEDS: DUONEB (A & A) INH SCH ×2 (03:47→07:45)
[2018-09-09] MEDS: ZOSYN 3.375 GM in NS 50 ML IV SCH ×2 (04:38→11:11)
[2018-09-09] MEDS: VANCOMYCIN 1,500 MG in NS 250 ML IV SCH (05:04)
[2018-09-09 05:28] LABS: BASO# 0.03 X1000 (0.0-0.2); BASO% 0.3 % (0.0-0.8); EOS# 1.76 X1000 (0.0-0.7); EOS% 16.2 % (0.0-10.0); HEMATOCRIT 33.8 % (42.0-52.0); IMM GRAN# 0.07 X1000 (0.0-0.04); IMM GRAN% 0.6 % (0.0-0.5); LYMPH# 1.04 X1000 (1.2-3.4); LYMPH% 9.6 % (20.5-51.1); MCH 29.2 PG (27-31); MCHC 32.5 g/dL (33-37); MCV 89.7 FL (81-99); MONO% 20.3 % (1.7-9.3); MPV 9.8 FL (7.4-10.4); NEUT# 5.74 X1000 (1.4-6.5); PLT 288 X1000 (130-400); RBC 3.77 XMIL (4.7-6.1); RDW 12.9 % (11.5-14.5); WBC 10.84 X1000 (4.8-10.8)
[2018-09-09 05:50] LABS: AGAP 12; BUN 13 mg/dL (8-22); CALCIUM 8.8 mg/dL (8.8-10.2); CHLORIDE 90 mmol/L (98-107); COSMO 262; CREATININE 0.8 mg/dL (0.7-1.2); ESTIMATED GFR > 60; GLUCOSE 115 mg/dL (70-104); MAGNESIUM 1.7 mg/dL (1.5-2.7); PHOSPHORUS 3.5 mg/dL (2.7-4.5); POTASSIUM 4.2 mmol/L (3.5-5.1); SODIUM 130 mmol/L (136-145); TCO2 28 mmol/L (25-35)
--- NOTE | 2018-09-09 05:55 | GENERAL SURGERY PROGRESS NOTE ---
DATE: 09/09/2018 SUBJECTIVE: The patient seems to be doing okay. He had a CT angiography yesterday which showed still persistent right pleural effusion, although it is decreased from prior to the thoracentesis. OBJECTIVE: Vital Signs: The patient is currently afebrile. His vital signs are stable. General: No acute distress. HEENT: Normocephalic, atraumatic. Pupils are equal, round, and reactive to light. Mucous membranes are moist. Oropharynx is benign. Neck: Supple. Trachea midline. Cardiovascular: Some mild tachycardia. Lungs: Some coarse sounds noted bilaterally. Abdomen: Soft, nontender, and nondistended. Extremities: Moves all extremities. Neurologic: Grossly intact. Skin: No signs of jaundice. Vascular: All extremities perfused. LABORATORY DATA: None this morning. Reviewed labs from yesterday. IMAGING: As noted above. ASSESSMENT: The patient is a 48-year-old gentleman with recurrent right pleural effusion in the setting of Castleman disease. PLAN: Recurrent right pleural effusion. At this time, it is less than what it was, they did drain 1.4 L from his chest from a previous thoracentesis. The patient is not in any acute distress. From a surgical point of view I suspect the patient will likely require a PleurX catheter, but at this immediate time the patient can likely be discharged and follow up with us as an outpatient. He can either see myself or Dr. Jay who has previously done his chest tubes, but I think we can kind of manage him as an outpatient. cc: Luis Kirk MD
[2018-09-09 06:03] LABS: EOS 13 % (1-10); LYMPHS 11 % (21-51); MONO 18 % (1-9); SEGS 58 % (42-75)
--- NOTE | 2018-09-09 07:30 | Diag Imaging Result Doc PS360 ---
EXAM: CHEST-PORTABLE 09/09/2018 HISTORY: pleural effusion TECHNIQUE: AP portable at 0608 COMMENT: There is what appears to be loculated pleural fluid bilaterally. The left hemidiaphragm is elevated. There are also patchy alveolar opacities bilaterally worse throughout the right lung. The heart size is within normal limits. IMPRESSION: Pleural effusions and pulmonary edema plus minus pneumonia. Electronically signed by Joaquin Vargas 09/09/2018 7:28 AM
[2018-09-09] MEDS: VITAMIN B-1 PO SCH (08:44)
[2018-09-09] MEDS: THERA M PLUS PO SCH (08:44)
[2018-09-09] MEDS: MYCOSTATIN SUSP PO SCH (08:45)
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
--- NOTE | 2018-09-09 11:28 | DISCHARGE SUMMARY ---
ADMISSION DATE: 09/05/2018 DISCHARGE DATE: 09/09/2018 PRIMARY CARE PHYSICIAN: Listed as none. CONSULTATIONS: 1. General Surgery. 2. Hematology. ADMISSION DIAGNOSES: 1. Sepsis secondary to right lung pneumonia. 2. Recurrent right pleural effusion. 3. Oral thrush. 4. Volume overload with edema of bilateral lower extremities. 5. Ethanol abuse. DISCHARGE DIAGNOSES: 1. Acute hypoxemic respiratory failure improved 2. Sepsis due to suspected right lung pneumonia associated with recurrent pleural effusion 2. History of Castleman's disease, on chemotherapy. 3. Ethanol abuse. 4. History of chronic obstructive pulmonary disease. SUMMARY OF FINDINGS: This is a 48-year-old male, who presented to the emergency room with shortness of breath and pain to his right side. He stated that he began to become short of breath on afternoon and worsened by Thursday night, but the patient stated, "It was really bad, but I didn't want to come to the hospital." He had progressed to the point that he was having trouble breathing at a 90 degree, so he came in, was found to have bilateral infiltrates with a large right pleural effusion and a small left pleural effusion. CT of the chest revealed multifocal nodular infiltrates and a large right pleural effusion and a small left pleural effusion which was slightly larger than March 2018. He was admitted to the [facility] unit. General Surgery was consulted, and they did a thoracentesis, ultrasound guided, and he tolerated the procedure well. They did drain 1.4 L from his chest with the pleurocentesis. It was felt that he will most likely require a PleurX catheter, but at this immediate time, the patient could likely be discharged and followed up with outpatient according to the general surgeon. We consulted Oncology due to his history of Castleman's disease. No new recommendations were made at this time, and it is now felt that he can safely be discharged home today. DISCHARGE MEDICATIONS: Thiamin 100 mg p.o. daily #120 with no refills. Guaifenesin/codeine 100/10 mg per 5 mL, give 10 mL p.o. q.6 h. #7 liquid with no refill. A prescription for [place] 7.5 one p.o. q.4 h., #20 with no refills. Levaquin 750 mg p.o. daily, #7 with no refills. Spiriva Respimat 4 g inhalation b.i.d., #1 mist inhaler with no refills. FOLLOW-UP: He will need to follow up with his oncologist and call the office to reschedule his appointment. Follow up with the general surgeon and call the office for an appointment as they want to see him in 1 week and with Pulmonology and to call their office to schedule an appointment. All discharge instructions have been reviewed with the patient, and he verbalizes understanding. COORDINATION TIME: This a 35-minute discharge. Dictated by ROBERT Bee for Lawson Dubon MD cc: ROBERT Bee MD Heather Shah, MD Matthew L. Figh, MD Mamoun I. Najjar, MD I have seen and examined Mr Beltran. He is currently asymptomatic and clinically stable for discharge. I have reconciled his home medications. All the discharge recommendations are discussed with him and he voices understanding. Patient will follow up with Dr. Epps. ERIS
[2018-09-09 11:45] VITALS: BP 120/71
== END 2018-09-09 12:25 | disposition home or self-care (01) | DRG 871 ==
LOC: ED 06:07 → SUATTDRO 13:12 → 4N 13:12 → 3S 09-06 19:08
PROVIDERS: ATTEND Internal Medicine
CPT/HCPCS: 32421; 32555; 71010; 71020; 71045; 71046; 71250; 71275; 80048; 80053; 80202; 82042; 82945; 83605; 83615; 83735; 83880; 84100; 84157; 84484; 85025; 85379; 85610; 85730; 87040; 87070; 87205; 87275; 87276; 87804; 89051; 93005; 93010; 94640; 94761; 94799; 96365; 96366; 96367; 97162; 97530; 99285; A9270; J0456; J0696; J1940; J2270; J2543; J3370; J3411; J3475; J7030; J7040; J7050; Q9967

== ENCOUNTER 2018-10-18 18:31 | Inpatient (IN) ==
[2018-10-18] MEDS ORDERED: SOLU-MEDROL IV ONE (19:16)
[2018-10-18] MEDS ORDERED: DUONEB (A & A) INH ONE (19:16)
[2018-10-18] MEDS ORDERED: ASPIRIN PO ONE (19:19)
[2018-10-18 19:44] LABS: BASO# 0.06 X1000 (0.0-0.2); BASO% 0.4 % (0.0-0.8); EOS# 0.37 X1000 (0.0-0.7); EOS% 2.4 % (0.0-10.0); HEMATOCRIT 34.2 % (42.0-52.0); IMM GRAN# 0.09 X1000 (0.0-0.04); IMM GRAN% 0.6 % (0.0-0.5); LYMPH# 1.16 X1000 (1.2-3.4); LYMPH% 7.7 % (20.5-51.1); MCHC 32.2 g/dL (33-37); MONO# 2.46 X1000 (0.11-0.59); MONO% 16.3 % (1.7-9.3); MPV 9.3 FL (7.4-10.4); NEUT# 10.99 X1000 (1.4-6.5); NEUT% 72.6 % (42.2-75.2); PLT 364 X1000 (130-400); RBC 3.93 XMIL (4.7-6.1); RDW 13.9 % (11.5-14.5); WBC 15.13 X1000 (4.8-10.8)
[2018-10-18 19:54] LABS: ALLEN TEST YES; BE 3.5 mmoll (-3.0-3.0); BLOOD TYPE ARTERIAL; HCO3-(ACT) 27.6 mmoll (20.0-26.0); METHB 1.1 % (0.0-1.5); O2(CT) 15.2 mL/dL (15.0-23.0); PO2(98.6) 200 mmHg (60-100); SAMPLE BLOOD; SAO2 100.1 % (95.0-100.0); pH(98.6) 7.33 (7.35-7.45)
[2018-10-18 19:56] LABS: MODALITY NRB
[2018-10-18 19:58] LABS: PCO2(98.6) 58 mmHg (35-45)
[2018-10-18 20:00] LABS: ESTIMATED GFR > 60; INR 0.93; PROTIME 13.3 Seconds (11.0-16.0)
[2018-10-18 20:01] LABS: PTT 32.1 Seconds (22.3-41.8)
[2018-10-18 20:03] LABS: AGAP 16; ALB/GLOB RATIO 1.5; ALBUMIN 3.4 g/dL (3.5-5.0); ALKALINE PHOSPHATASE 129 U/L (32-122); BUN 8 mg/dL (8-22); CALCIUM 8.6 mg/dL (8.8-10.2); CHLORIDE 88 mmol/L (98-107); CK PROFILE 65 U/L (24-204); COSMO 259; CREATININE 0.5 mg/dL (0.7-1.2); GLUCOSE 95 mg/dL (70-104); GOT 46 U/L (10-34); GPT 10 U/L (10-44); POTASSIUM 4.9 mmol/L (3.5-5.1); SODIUM 130 mmol/L (136-145); TCO2 26 mmol/L (25-35); TOTAL BILIRUBIN 0.24 mg/dL (0.20-1.00); TOTAL PROTEIN 5.7 g/dL (6.3-8.3)
--- NOTE | 2018-10-18 20:16 | Diag Imaging Result Doc PS360 ---
EXAM: CHEST-2 VIEWS INDICATION: pna TECHNIQUE: 2 views COMPARISON: 10/01/2018 FINDINGS: Like the previous study, there are bilateral pleural effusions. The effusion on the left has increased in size during the interval. There are dense airspace consolidations throughout the right lung, worse in the right upper lobe and at the left lower lung zone. They appear to have worsened somewhat during the interval, especially at the left lung base. Cardiac silhouette is grossly stable. IMPRESSION: 1.Interval worsening of consolidations as compared to the previous study, especially at the left lung base. 2.Bilateral pleural fluid collections with an increase in size on the left as compared to the previous study. Electronically signed by Nam Martinez 10/18/2018 8:14 PM
[2018-10-18] MEDS ORDERED: LASIX IV ONE (20:56)
--- NOTE | 2018-10-18 20:56 | PROVIDER DOCUMENTATION ---
This chart was entered by Anila Martinez Scribe, acting as scribe for Lina Abdullahi MD. HPI-Respiratory General - General Chief Complaint: Shortness of Breath Stated Complaint: SOB Time Seen by Provider: 10/18/18 18:46 Source: patient Allergies/Adverse Reactions: Patient Allergies Allergy/AdvReac Type Severity Reaction Status Date / Time No Known Allergies Allergy Verified 02/28/18 09:07 Home Medications: Home Medication List Medication Instructions Recorded Confirmed Last Taken Type Albuterol Sulfate Inhaler 1 puff INH DAILY 09/05/18 09/05/18 10/01/18 07:00 History [Ventolin Hfa] Hydrocodone/Acetaminophen [Randolph 1 ea PO Q4H PRN #20 tab 09/09/18 10/01/18 07:00 Rx 7.5-325 Tablet] Thiamine [Vitamin B-1] 100 mg PO DAILY #120 tab 09/09/18 10/01/18 07:00 Rx Tiotropium Ramer [Spiriva 4 gm INHALATION BID #1 mist.inhal 09/09/18 10/01/18 07:00 Rx Respimat] Fluticasone/Umeclidin/Vilanter 10/01/18 10/01/18 07:00 History [Trelegy Ellipta 100-62.5-25] - History of Present Illness-Resp Nature of Presenting Problem: 48 yom presents to ed w/cc sob starting 2-3 days ago but worse today, sharp cp, and cough starting today. pt sts he was dx w/copd 1 yr ago and is on 2 L of o2 usually @ home but has gone up to 3-4 L recently. pt has sharp cp "all the time," and sts anxiety started when copd started. pt has albuterol and emergency inhaler at home which has provided little relief. pt o2 in place in er. pt denies nvd and fever. pt also has hx of castleman's dx and had lungs drained 5- 3. Review of Systems - Adult - REVIEW OF SYSTEMS - ADULT Constitutional: reports: no symptoms reported. denies: fever, fatique Eyes: reports: no symptoms reported Ears, Nose, Mouth & Throat: reports: no symptoms reported Cardiovascular: reports: see HPI, chest pain (sharp). denies: heart murmur, poor circulation, syncope Respiratory: reports: see HPI, cough, shortness of breath. denies: excessive sputum production, hemoptysis, pleurisy Gastrointestinal: reports: no symptoms reported. denies: diarrhea, nausea, vomiting Genitourinary: reports: no symptoms reported Musculoskeletal: reports: no symptoms reported Integumentary: reports: no symptoms reported Neurological: reports: no symptoms reported Psychiatric: reports: no symptoms reported Endocrine: reports: no symptoms reported Hematologic/Lymphatic: reports: no symptoms reported Allergic/Immunologic: reports: no symptoms reported All Other Systems: Reviewed and Negative Past History - Adult - PAST MEDICAL HISTORY-ADULT Review of Records: reports: Old Records Reviewed, Nursing Assessment Review, Medications Reviewed, Social history reviewed & non-contributory. Major Childhood Illnesses: reports: denies history Cardiovascular: reports: denies history Respiratory: reports: lung disease, pneumonia Gastrointestinal: reports: denies history Obstetrical/Gynecological: reports: denies history Genitourinary: reports: denies history Musculoskeletal: reports: denies history Neurological: reports: denies history Psychiatric: reports: denies history Endocrine/Immune: reports: denies history Other Conditions: reports: denies history Additional History: Fake left eye - PRIOR SURGERIES/PROCEDURES Surgical/Procedure History: reports: other - PRIOR HOSPITALIZATIONS Prior Hospitalizations: reports: for similar symptoms - IMMUNIZATION STATUS Childhood Immunizations: See Nurse Assessment Flu Vaccine: See Nurse Assessment - FAMILY HISTORY Family History: reviewed, not pertinent - SOCIAL HISTORY Smoking: cigarettes, greater than 1 pack/day Provider spent 3-5 mins advising pt. on dangers of tobacco.: Discussed manners to quit use, and f/u contacts for add'l counseling. Substance Use: alcohol Alcohol Use Frequency: every day Number of drinks per typical drinking period:: 5-10 drinks Physical Exam-General - PHYSICAL EXAM-ADULT Initial Vital Signs Reviewed: Yes - CONSTITUTIONAL General Appearance: appears well, alert, no apparent distress. negative: lethargic, slow to respond, obtunded - EYES Eyes: PERRL/EOMI, pink conjunctivae - HEAD, EARS, NOSE, MOUTH & THROAT HENMT: normocephalic/atraumatic, moist mucous membranes - NECK Neck: non-tender, full range of motion, supple, normal inspection - RESPIRATORY Respiratory: chest non-tender, normal breath sounds, no pleuratic chest pain, no respiratory distress, crackles (bilat). negative: lungs clear, decreased breath sounds, dull on percussion, prolonged expiration - CARDIOVASCULAR Cardiovascular: normal peripheral pulses, no edema, no gallop, no JVD, no murmur , tachycardia. negative: regular rate, rhythm, JVD, bradycardia - GASTROINTESTINAL (ABDOMEN) Abdominal Exam: normal bowel sounds, non tender, soft - LYMPHATIC Lymphatic: no adenopathy - MUSCULOSKELETAL Back Exam: normal inspection, no CVA tenderness, no vertebral tenderness Extremity: normal range of motion, non-tender, normal inspection Peripheral Pulses: radial (R): 2+, radial (L): 2+ - SKIN Integumentary: normal color, normal turgor, warm/dry, abrasion(s) (on rt forarm) - NEUROLOGIC Neurologic: grossly normal, no motor/sensory deficits - PSYCHIATRIC Psych/Mental Status: normal thought content, normal thought process, oriented x 3, anxious. negative: normal mood/affect, disheveled, tearful - HEART Score HEART Score: History: Slightly Suspicious HEART Score: ECG: Non-Specific Repolarization Disturbance/LBBB/PM HEART Score: Age: 45-65 Years HEART Score: Risk Factors for Atherosclerotic Disease: 1 or 2 Risk Factors HEART Score: Troponin: < or = Normal Limit Total HEART Score:: 3 Progress - PLAN OF CARE/RESULTS Progress/Plan/Lab Results: Vital Signs - 8 hr 10/18/18 18:39 10/18/18 19:39 Temperature 97.2 F L Pulse Rate 127 H 100 H Respiratory Rate 28 H 20 Blood Pressure 179/101 O2 Sat by Pulse Oximetry 78 L 97 Laboratory Results - last 24 hr 10/18/18 10/18/18 10/18/18 18:58 18:58 18:58 WBC 15.13 H RBC 3.93 L Hgb 11.0 L Hct 34.2 L MCV 87.0 MCH 28.0 MCHC 32.2 L RDW Std Deviation 13.9 Plt Count 364 MPV 9.3 Immature Gran % (Auto) 0.6 H Neut % (Auto) 72.6 Lymph % (Auto) 7.7 L [place] % (Auto) 16.3 H Eos % (Auto) 2.4 Baso % (Auto) 0.4 Immature Gran # (Auto) 0.09 H Neut # (Auto) 10.99 H Lymph # (Auto) 1.16 L [place] # (Auto) 2.46 H Eos # (Auto) 0.37 Baso # (Auto) 0.06 PT INR PTT (Actin FS) Specimen Type Sample Site pH pCO2 pO2 HCO3 Base Excess Oxyhemoglobin ABG O2 Sat (Calculated) ABG O2 Saturation ABG Carboxyhemoglobin ABG Methemoglobin Brendan Test A-a O2 Difference Total Hemoglobin Lactate Liter Flow Blood Gas Modality FiO2 % Sodium 130 L Potassium 4.9 Chloride 88 L Carbon Dioxide 26 Anion Gap 16 BUN 8 Creatinine 0.5 L Estimated GFR/1.73 m2 > 60 BUN/Creatinine Ratio 16 Glucose 95 Calculated Osmolality 259 Calcium 8.6 L Total Bilirubin 0.24 AST 46 H ALT 10 Alkaline Phosphatase 129 H Creatine Kinase 65 Troponin T Yha-T-Vcyhduixcvf Pept 1948 H Total Protein 5.7 L Albumin 3.4 L Globulin 2.3 Albumin/Globulin Ratio 1.5 10/18/18 10/18/18 10/18/18 18:58 18:58 19:45 WBC RBC Hgb Hct MCV MCH MCHC RDW Std Deviation Plt Count MPV Immature Gran % (Auto) Neut % (Auto) Lymph % (Auto) [place] % (Auto) Eos % (Auto) Baso % (Auto) Immature Gran # (Auto) Neut # (Auto) Lymph # (Auto) [place] # (Auto) Eos # (Auto) Baso # (Auto) PT 13.3 INR 0.93 PTT (Actin FS) 32.1 Specimen Type ARTERIAL Sample Site R RADIAL pH 7.33 L pCO2 58 H* pO2 200 H HCO3 27.6 H Base Excess 3.5 H Oxyhemoglobin 95.0 ABG O2 Sat (Calculated) 15.2 ABG O2 Saturation 100.1 H ABG Carboxyhemoglobin 4.10 H ABG Methemoglobin 1.1 Brendan Test YES A-a O2 Difference 441.0 Total Hemoglobin 11.0 L Lactate 2.10 Liter Flow 15.0 Blood Gas Modality NRB FiO2 % 100.0 Sodium Potassium Chloride Carbon Dioxide Anion Gap BUN Creatinine Estimated GFR/1.73 m2 BUN/Creatinine Ratio Glucose Calculated Osmolality Calcium Total Bilirubin AST ALT Alkaline Phosphatase Creatine Kinase Troponin T < 0.010 Bev-M-Dwlscqkgeya Pept Total Protein Albumin Globulin Albumin/Globulin Ratio Orders Category Date Time Status Cardiac Monitoring DIRECTED Care 10/18/18 19:19 Active Oxygen Therapy- ED Nursing DIRECTED Care 10/18/18 19:19 Active Saline Loc NOW Care 10/18/18 19:19 Active CHEST-2 VIEWS [RAD] Stat Exams 10/18/18 19:19 Completed ABG [RESP] Routine Lab 10/18/18 19:45 Completed CBC WITH ELECTRONIC DIFF [HEME] Stat Lab 10/18/18 18:58 Completed CK PROFILE [SP CHEM] Stat Lab 10/18/18 18:58 Completed COMPREHENSIVE METABOLIC PANEL [CHEM] Stat Lab 10/18/18 18:58 Completed PRO B-NATRIURETIC PEPTIDE Stat Lab 10/18/18 18:58 Completed PROTIME WITH INR [COAG] Stat Lab 10/18/18 18:58 Completed PTT [COAG] Stat Lab 10/18/18 18:58 Completed TROPONIN T Stat Lab 10/18/18 18:58 Completed Albuterol 2.5MG/Ipratrop 0.5MG [Duoneb (A & A)] Med 10/18/18 19:16 Discontinued 3 ml INH NOW ONE Aspirin Med 10/18/18 19:19 Discontinued 325 mg PO NOW ONE Methylprednisolone Sod Succ [Solu-Medrol] Med 10/18/18 19:16 Discontinued 125 mg IV NOW ONE Aerosol Treatments Routine Oth 10/18/18 19:16 Completed Aerosol Treatments Stat Oth 10/18/18 19:16 Completed CP/SOB/Palp >45 yrs of Age Stat Oth 10/18/18 19:19 Ordered EKG [EKG] Stat Ther 10/18/18 19:19 Ordered Result Diagrams: 10/18/18 18:58 10/18/18 18:58 - XRAY 1 XRAY: Bilateral XRAY Study: Chest (EXAM: CHEST-2 VIEWS INDICATION: pna TECHNIQUE: 2 views COMPARISON: 10/01/2018 FINDINGS: Like the previous study, there are bilateral pleural effusions. The effusion on the left has increased in size during the in terval. There are dense airspace consolidations throughout the right lung, worse in the right upper lobe and at the left lower lung zone. They appear to have worsened somewhat during the interval, especially at the left lung base. Cardiac silhouette is grossly stable. IMPRESSION: 1.Interval worsening of consolidations as compared to the previous study, especially at the left lung base. 2.Bilateral pleural fluid collections with an increase in size on the left as compared to the previous study. Electronically signed by Nam Martinez 10/18/2018 8:14 PM) Impression: Abnormal Comparison with other Films: changes noted - CONSULTS/PCP/HOSPITALIST Notification #1 *Consult/PCP/Hospitalist*: Dr. Cabrera Time Discussed: 20:55 Consult Disposition: Admit Departure - Departure Date of Disposition Decision: 10/18/18 Time of Disposition Decision: 20:56 DIAGNOSIS: Pleural effusion, Alcoholism, Smoker, Chest pain Disposition: ADMITTED INPATIENT 09 Certified Medical Emergency: Emergent Condition: Stable Referrals and Follow-Ups: None,PCP [Primary Care Provider] - - Critical Care Note This patient required my direct & personal management of CC.: No Attestation - Physician/ LIANE Attestation Patient care was provided by Advanced Practice Provider:: No The physician spent face to face time with patient:: Yes Advanced Practice Provider documentation review:: Supervising physician onsite and consulted in the evaluation and care of this patient. The physician did have a face to face encounter with the patient. This chart was documented by the indicated scribe, (Anila Martinez Scribe) and accurately reflects the services I performed and decisions made by me, Lina Abdullahi MD, as attested by the provider's signature.
[2018-10-18] MEDS ORDERED: VITAMIN B-1 PO ONE (20:57)
[2018-10-18 22:01] LABS: MAGNESIUM 1.7 mg/dL (1.5-2.7); PHOSPHORUS 4.1 mg/dL (2.7-4.5)
[2018-10-18] MEDS ORDERED: ZOFRAN IV PRN (23:26)
[2018-10-18] MEDS: LASIX IV SCH (23:26)
[2018-10-18] MEDS: DUONEB (A & A) INH SCH (23:30)
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
--- NOTE | 2018-10-19 00:27 | ED EKG INTERP ---
This chart was entered by Anila Martinez Scribe, acting as scribe for Jordan Mitchell MD. EKG Interpretation - EKG Time of EKG reading by physician:: 00:12 EKG Read and Signed by:: Jordan Mitchell EKG Interpretation (*Must complete 3 of following elements*): Abnormal (borderline) Rate: 110 (poss left atrial enlargement ) Rhythm: ST w/ premature atrial complexed Padroni: normal QRS: normal FL Interval: normal ST Wave: normal Attestation - Physician/ LIANE Attestation Patient care was provided by Advanced Practice Provider:: No The physician spent face to face time with patient:: No Advanced Practice Provider documentation review:: Supervising physician onsite and consulted in the evaluation and care of this patient. The physician did not have a face to face encounter with the patient. This chart was documented by the indicated scribe, (Anila Martinez Scribe) and accurately reflects the services I performed and decisions made by me, Jordan Mitchell MD, as attested by the provider's signature.
[2018-10-19] MEDS: LEVAQUIN 500 MG/D5W 500 MG/100 ML IVPB IV SCH ×2 (03:18→22:38)
[2018-10-19] MEDS: TYLENOL PO PRN ×2 (03:19→15:45)
[2018-10-19] MEDS: LOVENOX SUBQ SCH ×2 (03:20→22:38)
[2018-10-19] MEDS: TOPROL XL PO SCH ×3 (04:07→20:57)
[2018-10-19] MEDS: ATIVAN IV PRN ×2 (04:07→22:48)
[2018-10-19 04:44] LABS: HEMATOCRIT 36.4 % (42.0-52.0); HEMOGLOBIN 11.6 g/dL (14.0-18.0); IMM GRAN# 0.04 X1000 (0.0-0.04); IMM GRAN% 0.5 % (0.0-0.5); LYMPH# 0.44 X1000 (1.2-3.4); LYMPH% 5.4 % (20.5-51.1); MCHC 31.9 g/dL (33-37); MCV 87.7 FL (81-99); MONO# 0.49 X1000 (0.11-0.59); MPV 9.3 FL (7.4-10.4); NEUT# 7.19 X1000 (1.4-6.5); NEUT% 88.1 % (42.2-75.2); PLT 385 X1000 (130-400); RBC 4.15 XMIL (4.7-6.1); WBC 8.16 X1000 (4.8-10.8)
[2018-10-19 04:59] LABS: AGAP 14; ALB/GLOB RATIO 1.3; ALBUMIN 3.4 g/dL (3.5-5.0); ALKALINE PHOSPHATASE 137 U/L (32-122); BUN 10 mg/dL (8-22); CALCIUM 8.3 mg/dL (8.8-10.2); CHLORIDE 88 mmol/L (98-107); COSMO 273; CREATININE 0.5 mg/dL (0.7-1.2); ESTIMATED GFR > 60; GLUCOSE 336 mg/dL (70-104); GOT 35 U/L (10-34); GPT 11 U/L (10-44); POTASSIUM 4.4 mmol/L (3.5-5.1); SODIUM 130 mmol/L (136-145); TCO2 28 mmol/L (25-35); TOTAL BILIRUBIN 0.25 mg/dL (0.20-1.00)
[2018-10-19 05:20] LABS: FERRITIN 154 ng/mL (30-400)
[2018-10-19 06:38] LABS: ALLEN TEST YES; BE 7.2 mmoll (-3.0-3.0); BLOOD TYPE ARTERIAL; HCO3-(ACT) 30.5 mmoll (20.0-26.0); METHB 1.3 % (0.0-1.5); O2(CT) 15.8 mL/dL (15.0-23.0); O2HB 95.6 % (95.0-99.0); PO2(98.6) 110 mmHg (60-100); SAMPLE BLOOD; SAO2 99.3 % (95.0-100.0); THB 11.6 g/dL (11.5-17.4); pH(98.6) 7.37 (7.35-7.45)
[2018-10-19 06:40] LABS: MODALITY VENTIMASK
[2018-10-19 06:42] LABS: PCO2(98.6) 59 mmHg (35-45)
[2018-10-19] MEDS: DUONEB (A & A) INH SCH ×4 (07:55→19:50)
--- NOTE | 2018-10-19 08:05 | Diag Imaging Result Doc PS360 ---
EXAM: CT THORAX W/CONTRAST HISTORY: CHF lung masses TECHNIQUE: CT chest with intravenous contrast COMPARISON: 09/05/2018 FINDINGS: Interval decrease in the right pleural fluid. Pleural fluid measures 3.9 cm posteriorly and inferiorly on the right on the current exam. There has been partial reexpansion of the right lung with dramatic decrease in atelectasis from the prior study. Pleural fluid on the left is similar to the prior study with a large loculated pocket laterally. There are multiple large bilateral lung masses. These are difficult to evaluate due to the dense infiltrates present on the current and prior exam. Overall the infiltrates are less pronounced than they were on the prior study. Markedly enlarged axillary lymph nodes and mediastinal lymph nodes. These are larger than on the prior study. Limited images through the upper abdomen reveal splenomegaly and multiple enlarged lymph nodes. IMPRESSION: 1.Multifocal dense bilateral infiltrates which are less pronounced than on the prior study 2.Interval decrease in the right pleural fluid 3.Worsening axillary and mediastinal adenopathy 4.Bilateral lung masses 5.Improved expansion of the right lung This exam was performed using automated exposure control, adjustment of mA or kV according to patient size, and/or use of iterative reconstruction technique. Electronically signed by Yaakov Whitlock 10/19/2018 8:03 AM
[2018-10-19] MEDS ORDERED: THIAMINE IM SCH (09:00)
[2018-10-19 09:02] LABS: ALLEN TEST YES; BE 8.8 mmoll (-3.0-3.0); BLOOD TYPE ARTERIAL; HCO3-(ACT) 31.8 mmoll (20.0-26.0); METHB 1.1 % (0.0-1.5); O2(CT) 15.7 mL/dL (15.0-23.0); O2HB 96.2 % (95.0-99.0); PO2(98.6) 117 mmHg (60-100); SAMPLE BLOOD; THB 11.5 g/dL (11.5-17.4); pH(98.6) 7.36 (7.35-7.45)
[2018-10-19 09:04] LABS: MODALITY VENTIMASK; PCO2(98.6) 64 mmHg (35-45)
[2018-10-19] MEDS: LASIX IV SCH ×2 (12:11→22:38)
[2018-10-19] MEDS: THERA M PLUS PO SCH ×2 (12:15→20:57)
--- NOTE | 2018-10-19 12:30 | EKG Report ---
Test Performed on : 10/19/2018 00:12:59 AM Test Reason : sob Blood Pressure : / mmHG Vent. Rate : 110 BPM Atrial Rate : 110 BPM P-R Int : 140 ms QRS Dur : 084 ms QT Int : 354 ms P-R-T Axes : 040 016 026 degrees QTc Int : 479 ms Sinus tachycardia. with premature atrial complexes. Possible Left atrial enlargement Borderline ECG When compared with ECG of 06-SEP-2018 05:28, premature atrial complexes. are now present Unconfirmed Result
--- NOTE | 2018-10-19 13:31 | PROGRESS NOTE ---
DATE: 10/19/2018 SUBJECTIVE: The patient is awake. Not in any significant distress. OBJECTIVE: Vital Signs: Pulse rate is 109, respiratory rate is 17, blood pressure 124/88. Oxygen saturation is 98%. Temperature is 97.2 degrees, HEENT: Atraumatic, normocephalic. The patient is anicteric. The patient does have an artificial left eye. Neck: No lymphadenopathy or thyromegaly. Cardiovascular: S1, S2. Respiratory system: Has evidence of good air entry bilaterally. Abdomen: Soft, nontender. No masses felt. Extremities: No evidence of edema. Central Nervous System: No focal deficit noted. LABORATORY DATA: WBC is 8.16, hematocrit is 36.4, with a platelet count of 385,000. ABG 7.36/64/117/ 100%. Sodium is 130, potassium 3.4, potassium 4.4, chloride 18, bicarb is 28, BUN is 10, creatinine 0.5, glucose is 336, iron 15. AST is 35, alkaline phosphatase 137. ASSESSMENT AND PLAN: 1. Acute hypercapnic respiratory failure. Maintain patient on BiPAP. Treat conditions driving pulmonary failure including chronic obstructive pulmonary disease, congestive heart failure as well as pneumonia. 2. Chronic obstructive pulmonary disease exacerbation. Maintain patient on nebulized bronchodilators, steroids, as well as antibiotics. 3. Congestive heart failure. Diuretics as needed. Monitor intakes and outputs, as well as daily weights. 4. Probable pneumonia. Obtain sputum as well as blood cultures and start patient on empiric antibiotics. 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 6. Alcoholism. Maintain patient on thiamine, folic acid, as well as multivitamin. Check magnesium and phosphorus level and correct those if needed. Chief check CPK levels. 7. Nicotine dependence. recommend nicotine patch. 8. Anemia of chronic disease. Follow up on hemoglobin, hematocrit. Transfuse packed red blood cells as needed. 9. Deep venous thrombosis prophylaxis, Lovenox. 10. Gastrointestinal prophylaxis. Proton pump inhibitor. cc: Nicholas Quintanilla MD MTDD
--- NOTE | 2018-10-19 16:39 | ECHO REPORT ---
ORDER DATE: 10/18/2018 INTERPRETING PHYSICIAN: Dr. Erick Feliz ECHOCARDIOGRAPHIC MEASUREMENTS: 1. Interventricular septum: 1.1 cm. 2. Posterior wall: 0,8 cm. 3. Diastolic diameter: 4.8 cm. 4. Left atrium: 3.1 cm. 5. Aortic root: 3.8 cm. SUMMARY OF THE 2-DIMENSIONAL IMAGIN. Aortic valve leaflets were trileaflet. There is mild calcification of the non coronary cusp. 2. Pulmonic valve was normal. There is trace pulmonary regurgitation. 3. Mitral valve was normal. 4. Tricuspid valve was normal. 5. Normal left ventricular cavity size. Estimated ejection fraction of 65%. 6. There is mild mitral regurgitation. 7. Mild tricuspid regurgitation. Peak velocity across the tricuspid valve was 2.8 m/sec. Pulmonary artery systolic pressure of 42 mmHg. 8. There is mild tricuspid regurgitation. 9. Peak velocity across the aortic valve less than 2 m/sec. By Doppler studies, there is no aortic stenosis or regurgitation. 10. There is no pericardial effusion or obvious intracardiac mass or thrombus seen. cc: MD Sheri Garcia MD
[2018-10-19] MEDS: NORCO-7.5 PO PRN ×2 (17:57→22:07)
--- NOTE | 2018-10-19 21:48 | CARDIOLOGY CONSULTATION ---
DATE: 10/19/2018 REQUESTING PROVIDER: Consultation requested by the hospitalist service. REASON FOR CONSULTATION: Possible congestive heart failure. CHIEF COMPLAINT: Dyspnea. HISTORY: A 48-year-old male who carries a diagnosis of Castleman's disease. He has been admitted to this hospital with similar symptoms on several occasions already, 01/18/2018, 02/02/2018, 02/28/2018, 09/05/2018, and this time was no different. He said that he became short of breath over several days. No chest pains. Upon presentation, his blood work showed that his pCO2 was 58, pH 7.33, PO2 of 200. His white cell count was 15,130. Chemistry showed a sodium of 130, potassium 4.9, BUN 8, creatinine 0.5. His proBNP 1948. Troponin level was normal. Electrocardiogram done in the ER showed sinus tachycardia, rate of 110 beats per minute. Otherwise, quite unremarkable. They just did an echocardiogram on him that shows left ventricular ejection fraction of 65%. Mild mitral regurgitation. Pulmonary pressure 42 mmHg. No aortic stenosis. No pericardial effusion. A chest CT done at 7:40 in the morning today shows multifocal dense bilateral infiltrates, less pronounced than on prior study. Interval decrease in right pleural fluid. Worsening axillary and mediastinal adenopathy and bilateral lung masses. Improved expansion of right lung. PAST HISTORY: As stated, includes the aforementioned rare lung condition which has been managed jointly by Pulmonary and Hematology/Oncology. The patient has really no other significant medical history. SURGICAL HISTORY: He has had left arm reconstruction and eye surgery. SOCIAL HISTORY: There is reported tobacco use as well as alcohol use. The patient is an electrician outside. He is was with a grandchild at the bedside today. REVIEW OF SYSTEMS: Other than chronic dyspnea is really noncontributory. MEDICATIONS: His home medications include hydrocodone, Spiriva, fluticasone, albuterol. ALLERGIES: He has no allergies. PHYSICAL EXAMINATION: Vital signs: Blood pressure 118/85, temperature 96 degrees, pulse 116, respirations 26. General: Alert, oriented, in no distress. HEENT: Other than the prosthetic eye, unremarkable. Chest: Diminished breath sounds diffusely. Heart: Sounds are regular and rhythmic. Question of systolic murmur. Abdomen: Nontender. Extremities: Showed palpable pulses. No edema. Neurological: Follows commands all 4 extremities. IMPRESSION: 1. Patient who presents with increasing dyspnea with a very abnormal CT scan of the chest indicating bilateral infiltrates, pneumonitis, which are chronic by now. 2. Probably minimal degree of diastolic heart failure in connection with severe lung disease. The elevation of proBNP in this particular case is really quite nonspecific given the extent of his pulmonary disease with hypercarbic respiratory failure. His pCO2 is 64. 3. History of tobacco use and other substance abuse. RECOMMENDATIONS: From cardiology viewpoint, I do not believe that we have any grounds to institute any new therapy in this patient. I would recommend that you follow common sense measures to keep this patient euvolemic and call me if there is any objective evidence of cardiac disease. At this point there is none. Thank you for asking us to participate in his evaluation. cc: Khoa Logan MD MTDD
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
[2018-10-20] MEDS: DUONEB (A & A) INH SCH ×6 (00:10→23:55)
[2018-10-20 04:34] LABS: BASO# 0.04 X1000 (0.0-0.2); BASO% 0.4 % (0.0-0.8); EOS# 0.14 X1000 (0.0-0.7); EOS% 1.3 % (0.0-10.0); HEMATOCRIT 34.7 % (42.0-52.0); HEMOGLOBIN 10.9 g/dL (14.0-18.0); IMM GRAN# 0.06 X1000 (0.0-0.04); IMM GRAN% 0.6 % (0.0-0.5); LYMPH# 1.02 X1000 (1.2-3.4); LYMPH% 9.8 % (20.5-51.1); MCH 28.2 PG (27-31); MCHC 31.4 g/dL (33-37); MCV 89.7 FL (81-99); MONO# 1.57 X1000 (0.11-0.59); MONO% 15.1 % (1.7-9.3); MPV 8.9 FL (7.4-10.4); NEUT# 7.55 X1000 (1.4-6.5); NEUT% 72.8 % (42.2-75.2); PLT 328 X1000 (130-400); RBC 3.87 XMIL (4.7-6.1); RDW 14.1 % (11.5-14.5); WBC 10.38 X1000 (4.8-10.8)
[2018-10-20] MEDS: NORCO-7.5 PO PRN ×5 (04:55→21:02)
[2018-10-20 05:03] LABS: ALLEN TEST YES; BE 9.5 mmoll (-3.0-3.0); BLOOD TYPE ARTERIAL; HCO3-(ACT) 32.3 mmoll (20.0-26.0); METHB 1.1 % (0.0-1.5); O2(CT) 15.2 mL/dL (15.0-23.0); O2HB 95.8 % (95.0-99.0); PO2(98.6) 100 mmHg (60-100); SAMPLE BLOOD; SAO2 98.9 % (95.0-100.0); THB 11.2 g/dL (11.5-17.4); pH(98.6) 7.39 (7.35-7.45)
[2018-10-20 05:03] LABS: AGAP 10; ALB/GLOB RATIO 1.6; ALBUMIN 3.3 g/dL (3.5-5.0); ALKALINE PHOSPHATASE 106 U/L (32-122); BUN 16 mg/dL (8-22); CALCIUM 8.3 mg/dL (8.8-10.2); CHLORIDE 92 mmol/L (98-107); COSMO 273; CREATININE 0.6 mg/dL (0.7-1.2); ESTIMATED GFR > 60; GLUCOSE 96 mg/dL (70-104); GOT 26 U/L (10-34); GPT 8 U/L (10-44); MAGNESIUM 1.6 mg/dL (1.5-2.7); POTASSIUM 4.1 mmol/L (3.5-5.1); SODIUM 136 mmol/L (136-145); TCO2 34 mmol/L (25-35); TOTAL BILIRUBIN 0.28 mg/dL (0.20-1.00); TOTAL PROTEIN 5.4 g/dL (6.3-8.3)
[2018-10-20 05:04] LABS: MODALITY VENTIMASK; PCO2(98.6) 60 mmHg (35-45)
[2018-10-20] MEDS: PRILOSEC PO SCH (05:59)
--- NOTE | 2018-10-20 07:39 | Diag Imaging Result Doc PS360 ---
EXAM: CHEST-1 VIEW INDICATION: copd TECHNIQUE: One view COMPARISON: 10/18/2018 FINDINGS: Bilateral pleural effusions are essentially stable. Dense consolidation throughout the right lung and at the left lung base are essentially stable given slight differences in positioning. No definite new consolidation is identified. Cardiac silhouette is stable. IMPRESSION: Essentially stable chest. Electronically signed by Nam Martinez 10/20/2018 7:36 AM
[2018-10-20] MEDS ORDERED: THIAMINE IV SCH (09:00)
[2018-10-20] MEDS: THERA M PLUS PO SCH ×2 (09:16→21:03)
[2018-10-20] MEDS: TOPROL XL PO SCH ×2 (09:17→21:03)
[2018-10-20] MEDS: THIAMINE 100 MG in NS 50 ML IV SCH (09:37)
[2018-10-20] MEDS: LASIX IV SCH ×2 (11:40→23:44)
--- NOTE | 2018-10-20 15:45 | PROGRESS NOTE ---
DATE: 10/20/2018 SUBJECTIVE: The patient is awake not in any obvious distress. OBJECTIVE: Vital Signs: Temperature 98.1 degrees, pulse 139, respiratory rate 19, blood pressure 114/66, and oxygen saturation is 96%. HEENT: Atraumatic, normocephalic. Cardiovascular: S1, S2. Respiratory: There is evidence of good air entry bilaterally. Abdomen: Soft, nontender. No masses felt. Extremities: There is trace edema in the lower extremities. Central nervous system: No obvious focal deficit noted. LABORATORY: WBC's 10.3, hematocrit 34.7 with a platelet count of 328,000. ABG 7.39/60/100/98.9%. Sodium 136, potassium 4.1, chloride is 92, bicarb is 34, BUN is 16, and creatinine 0.6. DIAGNOSTIC: X-ray of chest shows evidence of bilateral pleural effusion. Dense consolidation throughout the right lung as well as the left lung. Left lung is essentially stable. ASSESSMENT AND PLAN: 1. Acute hypercapnic respiratory failure. Maintain patient on BiPAP as needed. Pulmonary Team is following. 2. Chronic obstructive pulmonary disease exacerbation. Continue nebulized bronchodilators steroids as well as antibiotics. 3. Congestive heart failure. Diuretics as needed. Monitor intakes and outputs, as well as well as daily weights. 4. Pneumonia. Obtain sputum culture as well as blood cultures. Start patient on empiric antibiotics. 5. Castleman's disease. Hematology/Oncology consult. 6. Alcoholism. Maintain patient on delirium tremens prophylaxis along with thiamine, folic acid, as well as multivitamin. 7. Nicotine dependence. nicotine patch. 8. Anemia of chronic disease. Monitor hemoglobin and hematocrit. Transfuse PRBC's as needed. 9. Deep vein thrombosis prophylaxis. Lovenox. 10. Gastrointestinal prophylaxis. Proton pump inhibitor. cc: Nicholas Quintanilla MD [facility]
[2018-10-20] MEDS: LOPRESSOR IV PRN ×2 (15:57→23:44)
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
[2018-10-20] MEDS: LOVENOX SUBQ SCH (23:44)
[2018-10-21] MEDS: ATIVAN IV PRN ×2 (01:39→23:55)
[2018-10-21] MEDS: LEVAQUIN 500 MG/D5W 500 MG/100 ML IVPB IV SCH ×2 (01:40→23:08)
[2018-10-21] MEDS: NORCO-7.5 PO PRN ×6 (01:40→23:08)
[2018-10-21] MEDS: PRILOSEC PO SCH (06:06)
[2018-10-21] MEDS: TOPROL XL PO SCH ×2 (08:38→21:05)
[2018-10-21] MEDS: THIAMINE 100 MG in NS 50 ML IV SCH (08:38)
[2018-10-21] MEDS: THERA M PLUS PO SCH ×2 (08:38→21:05)
[2018-10-21] MEDS: DUONEB (A & A) INH SCH ×5 (08:42→23:50)
[2018-10-21 08:43] LABS: BE 9.8 mmoll (-3.0-3.0); BLOOD TYPE ARTERIAL; HCO3-(ACT) 32.5 mmoll (20.0-26.0); METHB 1.1 % (0.0-1.5); O2(CT) 14.6 mL/dL (15.0-23.0); O2HB 95.2 % (95.0-99.0); PO2(98.6) 87 mmHg (60-100); SAMPLE BLOOD; SAO2 98.7 % (95.0-100.0); THB 10.8 g/dL (11.5-17.4); pH(98.6) 7.36 (7.35-7.45)
[2018-10-21 08:48] LABS: MODALITY VENTIMASK; PCO2(98.6) 66 mmHg (35-45)
[2018-10-21 08:49] LABS: ALLEN TEST YES
[2018-10-21] MEDS: LASIX IV SCH ×2 (10:44→23:08)
[2018-10-21] MEDS: ROBITUSSIN-DM PO PRN (18:57)
--- NOTE | 2018-10-21 19:30 | PROGRESS NOTE ---
DATE: 10/21/2018 SUBJECTIVE: Patient awake. Not in any obvious distress. OBJECTIVE: Vital Signs: Temperature 97.9 degrees, pulse 113, respirations 17, blood pressure is 126/81, oxygen saturation is 40%. HEENT: Atraumatic, normocephalic. Cardiovascular: S1, S2. Respiratory: Has evidence of good air entry bilaterally. Abdomen: Soft, nontender. No masses felt. Extremities: No evidence of edema. Central Nervous System: No obvious focal deficit noted. LABS: ABGs 7.36/66/87/98.7%. ASSESSMENT AND PLAN: 1. Acute hypercapnic respiratory failure. Maintain patient on BiPAP as needed. Pulmonary team following. 2. Chronic obstructive pulmonary disease exacerbation. Continue nebulized bronchodilators, steroids, as well as antibiotics. 3. Congestive heart failure. Stable. Diuretics as needed. 4. Pneumonia. Continue antibiotics and maintain patient on supplemental oxygen. 5. Castleman disease. Hematology/Oncology consulted. 6. Alcoholism. Maintain patient on delirium tremens prophylaxis along with thiamine, folic acid, as well as multivitamin. 7. Nicotine dependence. Nicotine patch. 8. Anemia of chronic disease. Monitor hemoglobin and hematocrit. Transfuse packed red blood cells as needed. 9. Deep vein thrombosis prophylaxis. Lovenox. 10. Gastrointestinal prophylaxis. Proton pump inhibitor. 11. Disposition. Patient can be transferred to the step-down unit. cc: Nicholas Quintanilla MD
[2018-10-21] MEDS: LOVENOX SUBQ SCH (23:08)
[2018-10-22 04:35] LABS: BLOOD TYPE ARTERIAL; SAMPLE BLOOD
[2018-10-22 04:36] LABS: ALLEN TEST YES; BE 14.2 mmoll (-3.0-3.0); HCO3-(ACT) 35.9 mmoll (20.0-26.0); METHB 1.5 % (0.0-1.5); MODALITY VENTIMASK; O2(CT) 14.3 mL/dL (15.0-23.0); O2HB 92.2 % (95.0-99.0); PCO2(98.6) 69 mmHg (35-45); PO2(98.6) 67 mmHg (60-100); SAO2 95.9 % (95.0-100.0); pH(98.6) 7.39 (7.35-7.45)
[2018-10-22] MEDS: NORCO-7.5 PO PRN ×5 (05:11→20:24)
[2018-10-22 05:39] LABS: BASO# 0.04 X1000 (0.0-0.2); BASO% 0.4 % (0.0-0.8); EOS# 0.56 X1000 (0.0-0.7); EOS% 5.6 % (0.0-10.0); HEMATOCRIT 35.2 % (42.0-52.0); HEMOGLOBIN 10.7 g/dL (14.0-18.0); IMM GRAN# 0.06 X1000 (0.0-0.04); IMM GRAN% 0.6 % (0.0-0.5); LYMPH# 1.21 X1000 (1.2-3.4); MCH 27.9 PG (27-31); MCHC 30.4 g/dL (33-37); MCV 91.7 FL (81-99); MONO# 2.09 X1000 (0.11-0.59); MONO% 20.8 % (1.7-9.3); MPV 9.2 FL (7.4-10.4); NEUT# 6.11 X1000 (1.4-6.5); NEUT% 60.6 % (42.2-75.2); PLT 299 X1000 (130-400); RBC 3.84 XMIL (4.7-6.1); RDW 13.6 % (11.5-14.5); WBC 10.07 X1000 (4.8-10.8)
[2018-10-22 05:52] LABS: AGAP 8; BUN 21 mg/dL (8-22); CALCIUM 8.9 mg/dL (8.8-10.2); CHLORIDE 90 mmol/L (98-107); COSMO 277; CREATININE 0.5 mg/dL (0.7-1.2); ESTIMATED GFR > 60; GLUCOSE 100 mg/dL (70-104); POTASSIUM 4.2 mmol/L (3.5-5.1); SODIUM 137 mmol/L (136-145); TCO2 39 mmol/L (25-35)
[2018-10-22] MEDS: PRILOSEC PO SCH (06:35)
[2018-10-22 07:15] LABS: BANDS 1 % (0-1); LYMPHS 9 % (21-51); MONO 19 % (1-9); SEGS 71 % (42-75)
[2018-10-22] MEDS: DUONEB (A & A) INH SCH ×5 (07:29→23:49)
[2018-10-22] MEDS: THIAMINE 100 MG in NS 50 ML IV SCH (08:55)
[2018-10-22] MEDS: THERA M PLUS PO SCH ×2 (08:56→20:25)
[2018-10-22] MEDS: TOPROL XL PO SCH ×2 (08:56→20:24)
[2018-10-22] MEDS: ROBITUSSIN-DM PO PRN ×2 (09:03→18:20)
[2018-10-22] MEDS: LASIX IV SCH ×2 (10:30→22:57)
[2018-10-22] MEDS: ULTRAM PO PRN ×2 (12:08→18:19)
--- NOTE | 2018-10-22 12:35 | PROGRESS NOTE ---
DATE: 10/22/2018 SUBJECTIVE: Patient awake, not in any obvious distress. OBJECTIVE: Vital signs: Temperature is 98.6 degrees, pulse 120, respirations 24, blood pressure is 150/82, O2 saturation is 96%. HEENT: Atraumatic, normocephalic. Cardiovascular: S1, S2. Respiratory system: Has evidence of good air entry bilaterally. Abdomen: Soft, nontender. No masses felt. Extremities: No evidence of edema. Central nervous system: No obvious focal deficits noted. LABORATORY DATA: WBC is 10.07, hematocrit is 35.2 with a platelet count of 299,000. ABG 7.39/69/67/95.9%. Sodium 137, potassium 4.2, chloride 90, bicarb is 39, BUN is 21, ASSESSMENT AND PLAN: 1. Acute hypercapnic respiratory failure. Maintain patient on BiPAP as needed. Pulmonary team following. 2. Chronic obstructive pulmonary disease exacerbation. Continue nebulized bronchodilators, steroids as well as antibiotics. 3. Congestive heart failure. Stable. Diuretics as needed. 4. Pneumonia. Continue antibiotics and maintain patient on supplemental oxygen. 5. Castleman disease. Hematology/Oncology consulted. 6. Alcoholism. Maintain patient on delirium tremens prophylaxis along with thiamine, folic acid, as well as multivitamin. 7. Nicotine dependence. Nicotine patch. 8. Anemia of chronic disease. Follow up on hemoglobin and hematocrit. Transfuse PRBCs as needed. 9. Deep vein thrombosis prophylaxis. Lovenox. 10. Gastrointestinal prophylaxis. Proton pump inhibitor. cc: Nicholas Quintanilla MD [facility]
--- NOTE | 2018-10-22 18:47 | HEMO/ONC PROGRESS NOTE ---
DATE: 10/22/2018 SUBJECTIVE: Mr. Beltran is sitting up in his hospital bed in the ICU. He is eating lunch and is in no acute distress. OBJECTIVE: Vital Signs: Temperature 97.9 degrees, heart rate 103, respirations 22, blood pressure 131/88, O2 saturation 94% on 5 L nasal cannula. CV: Tachycardia noted. Respiratory: Normal respiratory effort. Gastrointestinal: Abdomen is nondistended. Extremities: Bilateral lower extremity edema noted. ASSESSMENT AND PLAN: 1. Castleman disease. Patient has been receiving Sylvant as an outpatient. Seems like he is no longer responding and we have recommended that he follow up at [facility] for further recommendations. We have already sent a referral to [facility], and we are currently working to set up the patient for an appointment there once he is discharged. 2. Acute respiratory failure. Continue management per Dr. Sykes and his team. 3. Chronic obstructive pulmonary disease exacerbation. Continue bronchodilator, steroids, and antibiotics as per Pulmonology and the primary team. 4. Congestive heart failure. Seems to be stable overall. He has continued to receive diuretics as needed. 5. Lung masses. The plan is to proceed with biopsy. We will follow up on the results when they become available. Dictated by BEVERLY Hand for Rosa Epps MD cc: Rosa Epps MD I have seen and examined the patient and the above note reflects my history, physical examination, assessment and plan. Rosa SCHULTE
[2018-10-22] MEDS: LEVAQUIN 500 MG/D5W 500 MG/100 ML IVPB IV SCH (22:57)
[2018-10-22] MEDS: ATIVAN IV PRN (22:57)
[2018-10-23] MEDS: LOPRESSOR IV PRN (00:35)
[2018-10-23] MEDS: NORCO-7.5 PO PRN ×5 (03:50→21:13)
[2018-10-23 05:22] LABS: ALLEN TEST YES; BE 12.4 mmoll (-3.0-3.0); BLOOD TYPE ARTERIAL; HCO3-(ACT) 34.6 mmoll (20.0-26.0); METHB 1.4 % (0.0-1.5); O2(CT) 14.2 mL/dL (15.0-23.0); O2HB 96.1 % (95.0-99.0); PO2(98.6) 136 mmHg (60-100); SAMPLE BLOOD; SAO2 99.8 % (95.0-100.0); THB 10.3 g/dL (11.5-17.4); pH(98.6) 7.45 (7.35-7.45)
[2018-10-23 05:24] LABS: MODALITY VENTIMASK; PCO2(98.6) 55 mmHg (35-45)
[2018-10-23] MEDS: PRILOSEC PO SCH ×2 (05:50→06:38)
[2018-10-23] MEDS: ULTRAM PO PRN ×3 (05:50→18:53)
[2018-10-23] MEDS: DUONEB (A & A) INH SCH ×5 (07:40→19:55)
[2018-10-23] MEDS: THERA M PLUS PO SCH ×2 (08:12→21:13)
[2018-10-23] MEDS: MAGNESIUM SULFATE 2 GM/S.W.I. 2 GM/50 ML IVPB IV SCH ×2 (08:12→10:36)
[2018-10-23] MEDS: TOPROL XL PO SCH ×2 (08:13→21:13)
[2018-10-23] MEDS: VITAMIN B-1 PO SCH (08:13)
[2018-10-23] MEDS: LASIX IV SCH ×2 (10:37→21:13)
[2018-10-23] MEDS: ROBITUSSIN-DM PO PRN (10:38)
--- NOTE | 2018-10-23 13:22 | PROGRESS NOTE ---
DATE: 10/23/2018 INTERVAL HISTORY: No acute event overnight, his vitals were unremarkable. He was slightly tachycardic, but it has been like this during this entire hospitalization. He was saturating 98% on Venturi mask. He has a transfer to medical floor ordered but is pending bed availability. SUBJECTIVE: He denies new complaints. He is sitting by the edge of the bed. Denies any chest pain. He does feel short of breath, especially if he tries to come out of bed. He denies new complaints, though. VITAL SIGNS: Currently vitals with temperature 97.5 degrees, pulse 105 per minute, respiratory rate 15, blood pressure 124/90, saturating 98% on 40% venturi mask. PHYSICAL EXAMINATION: General: Does not appear in any acute distress. Oral cavity is moist. He has decreased air entry with inspiratory crackles, bilateral infrascapular region. No wheeze or rhonchi. 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 Cardiovascular: S1, S2 normal. Tachycardic. No murmur, rub, or gallop. Abdomen: Soft, nontender. Mild bilateral ankle edema. Neurology: He is alert, oriented x3. LABS: Suggestive of normocytic anemia, normal platelet count. Compensated hypercarbic respiratory failure. Normal kidney function. Microbiology, no positive data. IMAGING: No new chest imaging. ASSESSMENT AND PLAN: 1. 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 Continue albuterol ipratropium nebulization and Lasix at current dosing. Continue intravenous levofloxacin. Today is day 6 of antibiotics. The patient is likely to get CT-guided biopsy of the lung in next 48 hours for definitive diagnosis of his lung nodules. 2. COPD. History of chronic obstructive pulmonary disease. He is currently not wheezing. Continue bronchodilators. He is not listed to be on steroids at the moment. If needed, I will provide him nicotine patch for his tobacco abuse. 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 4. Orders: Continue thiamine, folic acid, as well as multivitamin for history of alcohol use disorder, though he never had history of alcohol withdrawal as per the history given by him. 5. Anemia of chronic disease, stable. 6. Deep venous thrombosis prophylaxis on Lovenox. 7. Gastrointestinal prophylaxis on omeprazole. 8. Disposition. The patient is transferred to medical floor order. Plan of care discussed with him. All of his questions have been answered. cc: Rex Cobos MD
[2018-10-23] MEDS: LEVAQUIN 500 MG/D5W 500 MG/100 ML IVPB IV SCH (21:13)
[2018-10-23] MEDS: ATIVAN IV PRN (21:42)
[2018-10-24] MEDS: NORCO-7.5 PO PRN ×5 (02:13→22:03)
[2018-10-24] MEDS: DUONEB (A & A) INH SCH ×7 (02:23→22:35)
[2018-10-24] MEDS: ULTRAM PO PRN ×3 (03:20→18:33)
[2018-10-24 05:28] LABS: ALLEN TEST NO; BE 15.2 mmoll (-3.0-3.0); BLOOD TYPE ARTERIAL; HCO3-(ACT) 36.7 mmoll (20.0-26.0); METHB 0.8 % (0.0-1.5); O2(CT) 14.4 mL/dL (15.0-23.0); O2HB 93.9 % (95.0-99.0); PO2(98.6) 71 mmHg (60-100); SAMPLE BLOOD; SAO2 97.1 % (95.0-100.0); THB 10.9 g/dL (11.5-17.4); pH(98.6) 7.39 (7.35-7.45)
[2018-10-24 05:34] LABS: MODALITY CANNULA
[2018-10-24 05:42] LABS: PCO2(98.6) 71 mmHg (35-45)
[2018-10-24] MEDS: PRILOSEC PO SCH (06:23)
[2018-10-24 08:17] LABS: ESTIMATED GFR > 60
[2018-10-24 08:18] LABS: AGAP 10; BUN 19 mg/dL (8-22); CALCIUM 9.1 mg/dL (8.8-10.2); CHLORIDE 87 mmol/L (98-107); COSMO 276; CREATININE 0.5 mg/dL (0.7-1.2); GLUCOSE 122 mg/dL (70-104); MAGNESIUM 1.8 mg/dL (1.5-2.7); POTASSIUM 3.9 mmol/L (3.5-5.1); SODIUM 136 mmol/L (136-145); TCO2 39 mmol/L (25-35)
[2018-10-24] MEDS: VITAMIN B-1 PO SCH (09:17)
[2018-10-24] MEDS: THERA M PLUS PO SCH ×2 (09:17→22:03)
[2018-10-24] MEDS: LASIX IV SCH ×2 (09:18→22:03)
[2018-10-24] MEDS: TOPROL XL PO SCH ×2 (09:18→22:03)
[2018-10-24] MEDS: ATIVAN IV PRN ×2 (13:47→22:03)
--- NOTE | 2018-10-24 15:49 | PROGRESS NOTE ---
DATE: 10/24/2018 SUBJECTIVE: Patient resting comfortable in bed. Not in any obvious distress. OBJECTIVE: Vital signs: Temperature 98.8 degrees, pulse 108, respiratory 16, blood pressure 122/80, oxygen is 97%. HEENT: Atraumatic, normocephalic. Cardiovascular: S1, S2. Respiratory: Has evidence of good entry bilaterally. Abdomen: Soft, nontender, no masses felt. Extremities: No evidence of edema. Central Nervous System: No obvious focal deficit noted. LABS: ABG 7.39/71/71/97.1%. Sodium is 136, potassium 3.9, chloride is 87, bicarb is 39, BUN is 19, creatinine 0.35. ASSESSMENT AND PLAN: 1. Acute hypercapnic respiratory failure., Continue patient on BiPAP as needed. Pulmonary following. 2. Chronic obstructive pulmonary disease exacerbation. Continue nebulized bronchodilators, steroid as well as antibiotics. 3. Congestive heart failure stable, diuretic as needed. 4. Pneumonia. Continue antibiotics and maintain patient on supplemental oxygen. 5. Castleman disease. Hematology/Oncology consult. 6. Alcoholism, maintain patient on delirium tremens prophylaxis along with thiamine, folic acid as well as multivitamin. 7. Nicotine dependence. Nicotine patch. 8. Anemia of chronic disease. Follow up on hemoglobin, hematocrit, transfuse PRBC as needed. 9. Deep vein thrombosis prophylaxis Lovenox. 10. Gastrointestinal prophylaxis PPI. cc: Nicholas Quintanilla MD
[2018-10-24] MEDS: LEVAQUIN 500 MG/D5W 500 MG/100 ML IVPB IV SCH (22:02)
[2018-10-25] MEDS: NORCO-7.5 PO PRN ×5 (01:55→23:28)
[2018-10-25] MEDS: ULTRAM PO PRN ×4 (03:39→22:08)
[2018-10-25 05:33] LABS: ALLEN TEST YES; BE 16.9 mmoll (-3.0-3.0); BLOOD TYPE ARTERIAL; O2(CT) 14.1 mL/dL (15.0-23.0); O2HB 93.1 % (95.0-99.0); PO2(98.6) 66 mmHg (60-100); SAMPLE BLOOD; SAO2 96.5 % (95.0-100.0); THB 10.7 g/dL (11.5-17.4); pH(98.6) 7.41 (7.35-7.45)
[2018-10-25 05:37] LABS: MODALITY CANNULA; PCO2(98.6) 70 mmHg (35-45)
[2018-10-25] MEDS: PRILOSEC PO SCH (06:02)
[2018-10-25] MEDS: DUONEB (A & A) INH SCH ×5 (08:01→22:35)
[2018-10-25] MEDS ORDERED: NORCO-7.5 PO PRN (10:16)
[2018-10-25] MEDS: VITAMIN B-1 PO SCH (10:29)
[2018-10-25] MEDS: TOPROL XL PO SCH ×2 (10:29→21:47)
[2018-10-25] MEDS: LASIX IV SCH ×2 (10:29→21:47)
[2018-10-25] MEDS: THERA M PLUS PO SCH ×2 (10:29→21:47)
[2018-10-25] MEDS: ATIVAN IV PRN ×2 (14:58→22:07)
--- NOTE | 2018-10-25 15:56 | PROGRESS NOTE ---
DATE: 10/25/2018 SUBJECTIVE: The patient is resting comfortably in bed. Not in any obvious distress. OBJECTIVE: Vital Signs: Temperature is 98.9 degrees, pulse is 116, respiratory rate is 20, blood pressure is 134/79, oxygen saturation is 96%. HEENT: Atraumatic, normocephalic. Cardiovascular System: S1, S2. Respiratory System: Has evidence of good air entry bilaterally. Abdomen: Soft, nontender. No masses felt. Extremities: No evidence of edema. Central Nervous System: No obvious focal deficits noted. Laboratory Data: ABG 7.41/70/66/96.5. ASSESSMENT AND PLAN: 1. Acute hypercapnic respiratory failure. Maintain patient on BiPAP. Pulmonology team is following. 2. Chronic obstructive pulmonary disease exacerbation. Continue nebulized bronchodilators as well as steroids and antibiotics. 3. Congestive heart failure. Use diuretics as needed. 4. Pneumonia. Continue antibiotics and maintain patient on supplemental oxygen. 5. Castleman disease. Hematology/oncology following. 6. Alcoholism. Maintain patient on delirium tremens prophylaxis along with thiamine, folic acid, as well as multivitamin. 7. Nicotine dependence. Nicotine patch. 8. Anemia of chronic disease. Follow up on hemoglobin and hematocrit. Transfuse packed red blood cells as needed. 9. Deep vein thrombosis prophylaxis. Lovenox. 10. Gastrointestinal prophylaxis. Proton pump inhibitor. cc: Nicholas Quintanilla MD
[2018-10-25] MEDS: LEVAQUIN 500 MG/D5W 500 MG/100 ML IVPB IV SCH (21:47)
[2018-10-26] MEDS: NORCO-7.5 PO PRN ×3 (03:29→12:08)
[2018-10-26] MEDS: ULTRAM PO PRN ×4 (04:40→22:09)
[2018-10-26 05:26] LABS: ALLEN TEST YES; BE 15.8 mmoll (-3.0-3.0); BLOOD TYPE ARTERIAL; HCO3-(ACT) 37.1 mmoll (20.0-26.0); O2HB 91.3 % (95.0-99.0); PO2(98.6) 59 mmHg (60-100); SAMPLE BLOOD; SAO2 94.3 % (95.0-100.0); THB 10.9 g/dL (11.5-17.4)
[2018-10-26 05:30] LABS: MODALITY CANNULA; PCO2(98.6) 70 mmHg (35-45)
[2018-10-26] MEDS: PRILOSEC PO SCH (06:42)
[2018-10-26] MEDS: DUONEB (A & A) INH SCH ×5 (08:07→22:15)
[2018-10-26 08:16] LABS: HEMATOCRIT 33.7 % (42.0-52.0); HEMOGLOBIN 10.3 g/dL (14.0-18.0); MCH 27.5 PG (27-31); MCHC 30.6 g/dL (33-37); MCV 90.1 FL (81-99); MPV 9.8 FL (7.4-10.4); RBC 3.74 XMIL (4.7-6.1); RDW 13.9 % (11.5-14.5); WBC 10.91 X1000 (4.8-10.8)
[2018-10-26 08:27] LABS: ESTIMATED GFR > 60
[2018-10-26 08:30] LABS: AGAP 7; ALB/GLOB RATIO 1.3; ALBUMIN 3.3 g/dL (3.5-5.0); ALKALINE PHOSPHATASE 121 U/L (32-122); BUN 19 mg/dL (8-22); CHLORIDE 88 mmol/L (98-107); COSMO 274; CREATININE 0.5 mg/dL (0.7-1.2); GLUCOSE 95 mg/dL (70-104); GOT 32 U/L (10-34); GPT 9 U/L (10-44); POTASSIUM 4.6 mmol/L (3.5-5.1); SODIUM 136 mmol/L (136-145); TCO2 41 mmol/L (25-35); TOTAL BILIRUBIN 0.24 mg/dL (0.20-1.00); TOTAL PROTEIN 5.8 g/dL (6.3-8.3)
[2018-10-26 09:02] LABS: INR 0.93; PROTIME 13.2 Seconds (11.0-16.0)
[2018-10-26 09:03] LABS: PTT 41.8 Seconds (22.3-41.8)
--- NOTE | 2018-10-26 09:58 | Diag Imaging Result Doc PS360 ---
CHEST-2 VIEWS - 10/26/2018 INDICATION: post lung biopsy COMPARISON: 10/20/2018 FINDINGS: There is no evidence of pneumothorax. IMPRESSION: No complication. Electronically signed by Feliz Guerrero 10/26/2018 9:56 AM
[2018-10-26] MEDS: LASIX IV SCH ×2 (10:11→22:08)
[2018-10-26] MEDS: VITAMIN B-1 PO SCH (10:11)
[2018-10-26] MEDS: TOPROL XL PO SCH ×2 (10:12→20:37)
[2018-10-26] MEDS: THERA M PLUS PO SCH ×2 (10:12→20:36)
--- NOTE | 2018-10-26 12:52 | Diag Imaging Result Doc PS360 ---
CHEST-2 VIEWS - 10/26/2018 11:23 AM INDICATION: post lung Biopsy COMPARISON: 9:53 AM FINDINGS: There is no visible pneumothorax. IMPRESSION: No complication. Electronically signed by Feliz Guerrero 10/26/2018 12:50 PM
--- NOTE | 2018-10-26 15:33 | Diag Imaging Result Doc PS360 ---
CHEST-2 VIEWS - 10/26/2018 3:28 PM INDICATION: post lung biopsy COMPARISON: 11:23 AM FINDINGS: There is no pneumothorax. IMPRESSION: No complication. Electronically signed by Feliz Guerrero 10/26/2018 3:31 PM
--- NOTE | 2018-10-26 15:35 | Diag Imaging Result Doc PS360 ---
CT GUIDED BIOPSY LUNG - 10/26/2018 INDICATION: Lung masses/nodules TECHNIQUE: This case was discussed with Dr. Sykes. He indicated the necessity for the lung biopsy. He also stated that the patient was cleared for CT-guided lung biopsy. The risks and benefits of the procedure were discussed with the patient. All questions were answered. Written and verbal informed consent was obtained. Overlying skin was prepped and draped in sterile fashion. Anesthesia was achieved with injection of 10 cc of 1% lidocaine. COMPARISON: Prior CTs and x-rays FINDINGS: A dominant area of consolidation in the right upper lobe was chosen for biopsy. The 6/11 cm 19/20 gauge Temno biopsy needle set was used. Seven biopsy specimens were obtained. Postprocedural chest x-rays demonstrated no pneumothorax. IMPRESSION: Successful and uncomplicated CT-guided lung biopsy of right upper lobe consolidation. Electronically signed by Feliz Guerrero 10/26/2018 3:33 PM
[2018-10-26] MEDS: PERCOCET-5 PO PRN ×2 (16:05→20:36)
--- NOTE | 2018-10-26 18:46 | PROGRESS NOTE ---
DATE: 10/26/2018 SUBJECTIVE: The patient complains of pain at the lung biopsy site. OBJECTIVE: Vital signs: Temperature 98.6 degrees, blood pressure 122/69, heart rate 114, respirations 22, O2 saturation is 94% on 3 L nasal cannula. General: This is an elderly, chronically ill-appearing male lying in bed, in no acute distress. Heart: S1, S2 normal. Tachycardic. Lungs: Equal air entry bilaterally. Abdomen: Positive bowel sounds. Soft, nontender, nondistended. Extremities: No edema. No cyanosis. Neurologic: The patient is alert and oriented x4. LABS: White blood cell count 10, hemoglobin 10, hematocrit 33, platelets 311,000. Sodium 136, potassium 4.6, chloride 88, CO2 41, BUN 19, creatinine 0.5, AST 32, ALT 9, alkaline phosphatase 121. ASSESSMENT AND PLAN: 1. Status post CT-guided lung biopsy secondary to lung masses. Will await the pathology reports. 2. Castleman disease. Aware. 3. Chronic obstructive pulmonary disease exacerbation. Continue with bronchodilator therapy. 4. Chronic pain. We will continue on Percocet as needed. 5. Axillary mediastinal adenopathy. Aware. Pulmonary is following. 6. Anemia. Stable. 7. Acute on chronic hypercapnic and hypoxemic respiratory failure. Continue with the underlying treatment regimen. 8. Deep vein thrombosis prophylaxis. Continue on Lovenox. cc: Marychuy Mckenna MD
[2018-10-26] MEDS: ATIVAN IV PRN (20:36)
[2018-10-26] MEDS: LEVAQUIN 500 MG/D5W 500 MG/100 ML IVPB IV SCH (22:08)
[2018-10-27] MEDS: PERCOCET-5 PO PRN ×5 (04:54→23:03)
[2018-10-27] MEDS: ATIVAN IV PRN ×3 (04:56→22:56)
[2018-10-27 05:20] LABS: ALLEN TEST YES; BE 19.4 mmoll (-3.0-3.0); BLOOD TYPE ARTERIAL; METHB 1.2 % (0.0-1.5); O2(CT) 11.4 mL/dL (15.0-23.0); O2HB 93.6 % (95.0-99.0); PO2(98.6) 76 mmHg (60-100); SAMPLE BLOOD; SAO2 96.7 % (95.0-100.0); THB 8.6 g/dL (11.5-17.4); pH(98.6) 7.45 (7.35-7.45)
[2018-10-27 05:21] LABS: MODALITY CANNULA
[2018-10-27 05:22] LABS: PCO2(98.6) 66 mmHg (35-45)
[2018-10-27] MEDS: ULTRAM PO PRN ×3 (05:50→20:08)
[2018-10-27] MEDS: PRILOSEC PO SCH (06:30)
--- NOTE | 2018-10-27 06:43 | Diag Imaging Result Doc PS360 ---
EXAM: CHEST-PORTABLE HISTORY: copd/lung masses/adenopathy TECHNIQUE: Portable chest single view COMPARISON: 10/26/2018 FINDINGS: There are multinodular dense bilateral infiltrates as well as basilar atelectasis. There are moderate-sized pleural effusions. The appearance of the chest is unchanged the prior study. No pneumothorax. IMPRESSION: Stable chest Electronically signed by Yaakov Whitlock 10/27/2018 6:40 AM
[2018-10-27] MEDS: DUONEB (A & A) INH SCH ×5 (07:51→23:00)
[2018-10-27 08:06] LABS: HEMATOCRIT 33.1 % (42.0-52.0); HEMOGLOBIN 10.1 g/dL (14.0-18.0); MCH 27.2 PG (27-31); MCHC 30.5 g/dL (33-37); MPV 9.7 FL (7.4-10.4); RBC 3.72 XMIL (4.7-6.1); WBC 12.21 X1000 (4.8-10.8)
[2018-10-27 08:18] LABS: ESTIMATED GFR > 60
[2018-10-27 08:22] LABS: AGAP 9; BUN 22 mg/dL (8-22); CALCIUM 8.9 mg/dL (8.8-10.2); CHLORIDE 88 mmol/L (98-107); COSMO 276; CREATININE 0.5 mg/dL (0.7-1.2); GLUCOSE 120 mg/dL (70-104); POTASSIUM 4.3 mmol/L (3.5-5.1); SODIUM 136 mmol/L (136-145); TCO2 39 mmol/L (25-35)
[2018-10-27] MEDS: VITAMIN B-1 PO SCH (08:22)
[2018-10-27] MEDS: THERA M PLUS PO SCH ×2 (08:22→20:08)
[2018-10-27] MEDS: TOPROL XL PO SCH ×2 (08:22→20:08)
[2018-10-27] MEDS: LOVENOX SUBQ SCH (08:22)
[2018-10-27] MEDS: LASIX IV SCH ×2 (11:04→22:03)
[2018-10-27] MEDS: MAXIPIME 2 GM in NS 100 ML IV SCH (18:27)
[2018-10-27] MEDS: DOXYCYCLINE PO SCH (18:27)
--- NOTE | 2018-10-27 18:32 | PROGRESS NOTE ---
DATE: 10/27/2018 SUBJECTIVE: The patient is sitting up in bed. No acute events noted overnight. OBJECTIVE: Vital Signs: Temperature 99.3 degrees, blood pressure 128/79, heart rate 115, respirations 18, O2 saturation 94% on 3 L nasal cannula. General: This is a chronically ill- appearing, middle-aged male sitting up in bed, in no acute distress. Heart: S1, S2 normal. Tachycardic. Lungs: Equal air entry bilaterally. No wheezing. No rales. Abdomen: Positive bowel sounds. Soft, nontender, nondistended. Extremities: No edema. No cyanosis. Neurologic: The patient is alert and oriented x3. LABORATORIES: White blood cell count 12.2, hemoglobin 10, hematocrit 33, platelets 331,000. ABG: pH of 7.45, pCO2 of 66, pO2 of 76, bicarb 40. Sodium 136, potassium 4.3, chloride 88, CO2 of 39, BUN 22, creatinine 0.5, glucose 120. IMAGING STUDIES: Chest x-ray shows multinodular, dense, bilateral infiltrates and atelectasis. Moderate-sized pleural effusions. ASSESSMENT AND PLAN: 1. Acute on chronic hypoxemic and hypercapnic respiratory failure. Continue the treatment plan. 2. Possible pneumonia. We will check a procalcitonin level and an immunoglobulin level. We will change the patient's antibiotics to cefepime and Zyvox. Continue with bronchodilator therapy. 3. Status post CT-guided lung biopsy secondary to lung masses. We will await the pathology report. 4. Castleman disease. Aware. 5. Chronic pain syndrome. Continue on Percocet as needed. 6. Axillary and mediastinal adenopathy. Aware. 7. Constipation. We will start the patient on scheduled laxative therapy. 8. Leukocytosis. Will repeat the blood cultures. Continue on IV antibiotic therapy. 9. Deep vein thrombosis prophylaxis. Continue on Lovenox. cc: Marychuy Mckenna MD MTDD
[2018-10-28] MEDS: ULTRAM PO PRN ×3 (02:17→21:46)
[2018-10-28] MEDS: PERCOCET-5 PO PRN ×5 (03:43→20:00)
[2018-10-28 05:21] LABS: ALLEN TEST YES; BE 16.7 mmoll (-3.0-3.0); BLOOD TYPE ARTERIAL; HCO3-(ACT) 37.9 mmoll (20.0-26.0); METHB 0.5 % (0.0-1.5); O2(CT) 13.5 mL/dL (15.0-23.0); O2HB 94.7 % (95.0-99.0); PO2(98.6) 77 mmHg (60-100); SAMPLE BLOOD; SAO2 97.6 % (95.0-100.0); THB 10.1 g/dL (11.5-17.4); pH(98.6) 7.45 (7.35-7.45)
[2018-10-28 05:31] LABS: MODALITY BI PAP; PCO2(98.6) 62 mmHg (35-45)
[2018-10-28] MEDS: MAXIPIME 2 GM in NS 100 ML IV SCH ×2 (06:58→17:24)
[2018-10-28] MEDS: PRILOSEC PO SCH (06:59)
[2018-10-28] MEDS: DOXYCYCLINE PO SCH ×2 (06:59→17:25)
--- NOTE | 2018-10-28 07:18 | Diag Imaging Result Doc PS360 ---
EXAM: CHEST-PORTABLE 10/28/2018 HISTORY: dyspnea TECHNIQUE: AP portable at 0606 COMMENT: There are patchy alveolar opacities bilaterally. There are are bilateral pleural effusions, probably loculated. There is no evidence of pneumothorax. There has been no appreciable change since the previous study of 10/27/2018. IMPRESSION: Bilateral alveolar opacities and pleural fluid collections, stable. Electronically signed by Joaquin Vargas 10/28/2018 7:15 AM
--- NOTE | 2018-10-28 07:25 | EKG Report ---
Test Performed on : 10/27/2018 6:29:48 PM Test Reason : tachycardia Blood Pressure : / mmHG Vent. Rate : 121 BPM Atrial Rate : 121 BPM P-R Int : 146 ms QRS Dur : 082 ms QT Int : 322 ms P-R-T Axes : 040 021 042 degrees QTc Int : 457 ms Sinus tachycardia. Possible Left atrial enlargement Borderline ECG When compared with ECG of 19-OCT-2018 00:12, (Unconfirmed) premature atrial complexes. are no longer present Confirmed by Tanner ELIZONDO, Maxx Lamas ([id number]) on 10/28/2018 6:38:49 PM
[2018-10-28] MEDS: DUONEB (A & A) INH SCH ×5 (07:50→23:05)
[2018-10-28 07:54] LABS: HEMATOCRIT 33.4 % (42.0-52.0); MCH 27.5 PG (27-31); MCHC 29.9 g/dL (33-37); MPV 9.8 FL (7.4-10.4); RBC 3.63 XMIL (4.7-6.1); RDW 14.3 % (11.5-14.5); WBC 10.52 X1000 (4.8-10.8)
[2018-10-28 08:15] LABS: AGAP 12; BUN 22 mg/dL (8-22); CALCIUM 9.4 mg/dL (8.8-10.2); CHLORIDE 90 mmol/L (98-107); COSMO 284; CREATININE 0.5 mg/dL (0.7-1.2); ESTIMATED GFR > 60; GLUCOSE 184 mg/dL (70-104); POTASSIUM 4.1 mmol/L (3.5-5.1); SODIUM 138 mmol/L (136-145); TCO2 36 mmol/L (25-35)
[2018-10-28 08:18] LABS: ALB/GLOB RATIO 1.7; ALBUMIN 3.3 g/dL (3.5-5.0); DIRECT BILIRUBIN 0.1 mg/dL (0.00-0.20); TOTAL BILIRUBIN 0.23 mg/dL (0.20-1.00); TOTAL PROTEIN 5.2 g/dL (6.3-8.3)
[2018-10-28] MEDS: TOPROL XL PO SCH (09:34)
[2018-10-28] MEDS: LOVENOX SUBQ SCH (09:34)
[2018-10-28] MEDS: THERA M PLUS PO SCH ×2 (09:34→21:28)
[2018-10-28] MEDS: VITAMIN B-1 PO SCH (09:34)
[2018-10-28] MEDS: LASIX IV SCH ×2 (09:35→21:28)
[2018-10-28] MEDS: ATIVAN IV PRN ×2 (14:36→22:37)
--- NOTE | 2018-10-28 18:14 | PROGRESS NOTE ---
DATE: 10/28/2018 SUBJECTIVE: The patient is resting comfortably in bed. He has no complaints. OBJECTIVE: Vital Signs: Temperature 98.9 degrees, blood pressure 127/64, heart rate 124, respirations 22, O2 saturation is 94% on 3 L nasal cannula. General: This is a chronically ill- appearing elderly male lying in bed in no acute distress. Heart: S1 and S2 normal. Tachycardic. Lungs: Diminished breath sounds bilaterally. No wheezing. No rales. No rhonchi. Abdomen: Positive bowel sounds. Soft, nontender, and nondistended. Extremities: No edema. No cyanosis. No calf tenderness. Neurologic: The patient is alert and oriented x3. LABORATORY DATA: White blood cell count 10, hemoglobin 10, hematocrit 33, platelets 279,000. ABG: pH of 7.45, pCO2 is 62, PO2 is 77, bicarbonate is 37.9. Sodium 138, potassium 4.1, chloride 90, CO2 is 36, BUN 22, creatinine 0.5, glucose 184, AST 35, ALT 9, alkaline phosphatase 126, albumin 3.3. Chest x-ray shows bilateral alveolar opacities and pleural fluid collections. ASSESSMENT AND PLAN: 1. Acute on chronic hypoxemic and hypercapnic respiratory failure. Continue with the current treatment plan. 2. Possible pneumonia. Continue with broad-spectrum antibiotics. We will follow up on the sputum and blood culture results. 3. Axillary and mediastinal adenopathy. Aware. 4. Large bilateral lung masses status post CT guided biopsy. The pathology report is currently pending. 5. Chronic pain syndrome. Continue on Percocet as needed. 6. Castleman disease. Aware. The patient has been referred to B for further treatment options. 7. Leukocytosis. Resolved. 8. Deep vein thrombosis prophylaxis. Continue on Lovenox. cc: Marychuy Mckenna MD [facility]
[2018-10-28] MEDS ORDERED: COREG PO SCH (21:00)
[2018-10-28] MEDS: COREG PO SCH (21:31)
[2018-10-29] MEDS: PERCOCET-5 PO PRN ×6 (00:08→20:51)
[2018-10-29] MEDS: ULTRAM PO PRN ×4 (03:50→21:58)
[2018-10-29 04:40] LABS: ALLEN TEST YES; BE 12.9 mmoll (-3.0-3.0); BLOOD TYPE ARTERIAL; HCO3-(ACT) 34.9 mmoll (20.0-26.0); O2(CT) 17.7 mL/dL (15.0-23.0); PO2(98.6) 76 mmHg (60-100); SAMPLE BLOOD; SAO2 96.2 % (95.0-100.0); THB 13.5 g/dL (11.5-17.4); pH(98.6) 7.42 (7.35-7.45)
[2018-10-29 04:41] LABS: MODALITY BI PAP; PCO2(98.6) 62 mmHg (35-45)
[2018-10-29] MEDS: PRILOSEC PO SCH (06:25)
[2018-10-29] MEDS: DOXYCYCLINE PO SCH ×2 (06:25→17:21)
[2018-10-29] MEDS: MAXIPIME 2 GM in NS 100 ML IV SCH ×2 (06:26→17:21)
[2018-10-29 07:30] LABS: BASO# 0.08 X1000 (0.0-0.2); BASO% 0.6 % (0.0-0.8); EOS# 0.97 X1000 (0.0-0.7); EOS% 7.7 % (0.0-10.0); HEMATOCRIT 30.8 % (42.0-52.0); HEMOGLOBIN 9.7 g/dL (14.0-18.0); IMM GRAN# 0.18 X1000 (0.0-0.04); IMM GRAN% 1.4 % (0.0-0.5); LYMPH% 10.4 % (20.5-51.1); MCH 27.6 PG (27-31); MCHC 31.5 g/dL (33-37); MCV 87.7 FL (81-99); MONO# 2.28 X1000 (0.11-0.59); MONO% 18.2 % (1.7-9.3); MPV 9.7 FL (7.4-10.4); NEUT# 7.75 X1000 (1.4-6.5); NEUT% 61.7 % (42.2-75.2); PLT 298 X1000 (130-400); RBC 3.51 XMIL (4.7-6.1); RDW 13.9 % (11.5-14.5); WBC 12.56 X1000 (4.8-10.8)
[2018-10-29 07:51] LABS: AGAP 11; BUN 22 mg/dL (8-22); CHLORIDE 89 mmol/L (98-107); COSMO 273; CREATININE 0.5 mg/dL (0.7-1.2); ESTIMATED GFR > 60; GLUCOSE 99 mg/dL (70-104); POTASSIUM 4.8 mmol/L (3.5-5.1); SODIUM 135 mmol/L (136-145); TCO2 35 mmol/L (25-35)
[2018-10-29] MEDS: DUONEB (A & A) INH SCH ×5 (08:02→22:55)
[2018-10-29] MEDS: VITAMIN B-1 PO SCH (08:13)
[2018-10-29] MEDS: COREG PO SCH ×2 (08:13→20:33)
[2018-10-29] MEDS: THERA M PLUS PO SCH ×2 (08:13→20:33)
[2018-10-29] MEDS: LOPRESSOR IV PRN (08:14)
[2018-10-29] MEDS: LOVENOX SUBQ SCH (08:14)
[2018-10-29] MEDS: LASIX IV SCH ×3 (09:11→21:37)
[2018-10-29] MEDS: ROBITUSSIN-DM PO PRN ×2 (09:12→20:47)
[2018-10-29] MEDS ORDERED: TUSSIONEX LIQUID PO ONE (09:14)
[2018-10-29] MEDS: ATIVAN IV PRN ×2 (12:34→21:58)
--- NOTE | 2018-10-29 17:26 | PROGRESS NOTE ---
DATE: 10/29/2018 SUBJECTIVE: The patient is sitting up in bed resting. He does complain of a productive cough. OBJECTIVE: Vital Signs: Temperature 94.5 degrees, blood pressure 106/66, heart rate 106, respirations 20, O2 saturation is 100% on 5 L nasal cannula. Urine output 1.3 L. General: This is a chronically ill-appearing elderly male sitting up in bed in no acute distress. Heart: S1, S2 normal. Tachycardic. Lungs: Equal air entry. Diminished breath sounds at the bases. Abdomen: Positive bowel sounds. Soft, nontender, nondistended. Extremities: No edema, no cyanosis. Neurologic: The patient is alert and oriented x4. LABORATORY DATA: White blood cell count 12, hemoglobin 8.7, hematocrit 30, platelets 298,000. ABG: pH 7.42, pCO2 is 62, PO2 76, bicarb is 34. Sodium 135, potassium 4.8, chloride 89, CO2 35, BUN 22, creatinine 0.5, glucose 99. ASSESSMENT AND PLAN: 1. Acute on chronic hypoxemic and hypercapnic respiratory failure. Continue with the current treatment plan. 2. Bilateral opacities. The procalcitonin level was normal. The patient is currently on bronchodilator therapy and antibiotics. 3. Diffuse large B cell lymphoma. The pathology report confirms lymphoma. Will await oncology recommendations. 4. Castleman disease. The patient has been referred to [facility] by Dr. Epps. 5. Chronic pain syndrome. Continue on p.r.n. Percocet. 6. Axillary and mediastinal adenopathy. Aware. 7. Deep vein thrombosis prophylaxis. Continue on Lovenox. cc: Marychuy Mckenna MD [facility]
[2018-10-29] MEDS ORDERED: GAMUNEX-C 10% IV ONE (19:00)
[2018-10-29] MEDS: SENOKOT PO SCH ×2 (20:33→20:35)
--- NOTE | 2018-10-29 22:55 | PULMONOLOGY PROGRESS NOTE ---
DATE: 10/29/2018 SUBJECTIVE: The patient is awake and alert. He is frustrated with ongoing hospitalization. He is without specific complaints. OBJECTIVE: Patient has been afebrile for the last 24 hours. Blood pressure 110/58, heart rate 84, respiratory rate 16, oxygen saturation 93% on 4 L per nasal cannula. HEENT: Pupils are equal and reactive. Oropharynx is clear. Neck: Supple. Chest: Reveals decreased breath sounds in the lung bases. Cardiac: S1, S2. Abdomen: Soft. Extremities: Reveal trace edema. LABORATORIES: Fine-needle biopsy of the lung consistent with large B-cell lymphoma. White blood count 12.56, hemoglobin 9.7, platelet count 298,000. Arterial blood gas, pH 7.42, pCO2 of 62, pO2 of 76. IMPRESSION: 1. A 48-year-old with bilateral pulmonary infiltrates due to lymphoma. 2. Hypoxemic respiratory failure. 3. Hypercapnic respiratory failure. 4. Hypogammaglobulinemia. RECOMMENDATIONS: 1. Await Oncology's recommendation for treatment. 2. Recommend immunoglobulin replacement. 3. Continue oxygen and BiPAP as needed for hypoxemic respiratory failure. cc: Chad Urena MD
[2018-10-30] MEDS: PERCOCET-5 PO PRN ×6 (01:04→20:57)
[2018-10-30] MEDS: ROBITUSSIN-DM PO PRN ×3 (01:04→22:13)
[2018-10-30] MEDS: ULTRAM PO PRN ×4 (04:07→22:12)
[2018-10-30 04:57] LABS: BLOOD TYPE ARTERIAL; PO2(98.6) 56 mmHg (60-100); SAMPLE BLOOD; pH(98.6) 7.42 (7.35-7.45)
[2018-10-30 04:58] LABS: ALLEN TEST YES; BE 12.7 mmoll (-3.0-3.0); HCO3-(ACT) 34.6 mmoll (20.0-26.0); SAO2 89.5 % (95.0-100.0); THB 12.3 g/dL (11.5-17.4)
[2018-10-30 04:59] LABS: O2HB 86.5 % (95.0-99.0); PCO2(98.6) 61 mmHg (35-45)
[2018-10-30 05:00] LABS: MODALITY BI PAP
[2018-10-30] MEDS: MAXIPIME 2 GM in NS 100 ML IV SCH ×2 (05:08→18:38)
[2018-10-30] MEDS: PRILOSEC PO SCH ×2 (05:08→06:01)
[2018-10-30] MEDS: DOXYCYCLINE PO SCH ×2 (05:09→18:41)
[2018-10-30 07:57] LABS: BASO# 0.05 X1000 (0.0-0.2); BASO% 0.5 % (0.0-0.8); EOS# 0.82 X1000 (0.0-0.7); EOS% 7.6 % (0.0-10.0); HEMATOCRIT 30.8 % (42.0-52.0); HEMOGLOBIN 9.5 g/dL (14.0-18.0); IMM GRAN# 0.19 X1000 (0.0-0.04); IMM GRAN% 1.8 % (0.0-0.5); LYMPH# 1.03 X1000 (1.2-3.4); LYMPH% 9.6 % (20.5-51.1); MCHC 30.8 g/dL (33-37); MCV 87.5 FL (81-99); MONO# 2.05 X1000 (0.11-0.59); MONO% 19.1 % (1.7-9.3); MPV 9.7 FL (7.4-10.4); NEUT% 61.4 % (42.2-75.2); PLT 316 X1000 (130-400); RBC 3.52 XMIL (4.7-6.1); RDW 13.8 % (11.5-14.5); WBC 10.74 X1000 (4.8-10.8)
[2018-10-30] MEDS: DUONEB (A & A) INH SCH ×5 (08:15→23:38)
[2018-10-30 08:36] LABS: ESTIMATED GFR > 60
[2018-10-30 08:44] LABS: AGAP 15; BUN 20 mg/dL (8-22); CALCIUM 9.2 mg/dL (8.8-10.2); CHLORIDE 87 mmol/L (98-107); COSMO 271; CREATININE 0.5 mg/dL (0.7-1.2); GLUCOSE 103 mg/dL (70-104); POTASSIUM 4.1 mmol/L (3.5-5.1); SODIUM 134 mmol/L (136-145); TCO2 32 mmol/L (25-35)
[2018-10-30] MEDS: THERA M PLUS PO SCH ×2 (08:56→20:57)
[2018-10-30] MEDS: COREG PO SCH ×2 (08:56→20:57)
[2018-10-30] MEDS: VITAMIN B-1 PO SCH (08:56)
[2018-10-30] MEDS: SENOKOT PO SCH ×2 (08:57→20:58)
[2018-10-30] MEDS: LOVENOX SUBQ SCH (08:57)
[2018-10-30] MEDS: MIRALAX PO SCH (08:57)
[2018-10-30] MEDS: LASIX IV SCH ×3 (08:59→22:27)
[2018-10-30] MEDS: ATIVAN IV PRN ×2 (10:11→20:57)
[2018-10-30] MEDS ORDERED: ATIVAN IV ONE (10:44)
--- NOTE | 2018-10-30 21:56 | PULMONOLOGY PROGRESS NOTE ---
DATE: 10/30/2018 SUBJECTIVE: The patient is awake, alert and conversant. He was informed earlier about the biopsy results of his lung showing lymphoma. OBJECTIVE: The patient has been afebrile for the last 24 hours. Oxygen saturation 100% on 5 L per nasal cannula. HEENT: Pupils are equal and reactive. Oropharynx is clear. Neck is supple. Chest reveals bibasilar crackles. Cardiac exam: S1, S2. Abdomen is soft. Extremities without edema. LABORATORY DATA: Sputum culture final report reveals normal grant. Immunoglobulin level was low yesterday at 365. White blood count 10.74, hemoglobin 9.5, platelet count 316,000. IMPRESSION: A 48-year-old with: 1. Lymphoma, causing bilateral pulmonary infiltrates. 2. Hypoxemic respiratory failure. 3. Hypercapnic respiratory failure. 4. Hypogammaglobulinemia. PLAN: 1. Continue bronchial hygiene. 2. Continue antibiotics. 3. Immunoglobulin replacement was performed earlier today. 4. Cycle BiPAP and oxygen as needed. 5. Overall prognosis is guarded. Oncology anticipates initiating chemotherapy early next week. cc: Chad Urena MD
[2018-10-31] MEDS: PERCOCET-5 PO PRN ×3 (01:02→09:21)
[2018-10-31 04:07] LABS: ALLEN TEST YES; BE 12.7 mmoll (-3.0-3.0); BLOOD TYPE ARTERIAL; HCO3-(ACT) 34.8 mmoll (20.0-26.0); METHB 1.6 % (0.0-1.5); O2(CT) 13.6 mL/dL (15.0-23.0); O2HB 96.4 % (95.0-99.0); PCO2(98.6) 38 mmHg (35-45); PO2(98.6) 176 mmHg (60-100); SAMPLE BLOOD; SAO2 99.9 % (95.0-100.0); THB 9.7 g/dL (11.5-17.4)
[2018-10-31 04:08] LABS: MODALITY VENTIMASK
[2018-10-31 04:11] LABS: pH(98.6) 7.58 (7.35-7.45)
[2018-10-31] MEDS: ULTRAM PO PRN ×4 (04:22→22:18)
[2018-10-31] MEDS: ROBITUSSIN-DM PO PRN ×3 (04:23→22:18)
[2018-10-31] MEDS: PRILOSEC PO SCH ×2 (05:02→06:27)
[2018-10-31] MEDS: DOXYCYCLINE PO SCH ×2 (05:02→17:20)
[2018-10-31] MEDS: MAXIPIME 2 GM in NS 100 ML IV SCH ×2 (05:03→17:20)
[2018-10-31 07:53] LABS: HEMATOCRIT 30.5 % (42.0-52.0); HEMOGLOBIN 9.4 g/dL (14.0-18.0); MCH 27.8 PG (27-31); MCHC 30.8 g/dL (33-37); MCV 90.2 FL (81-99); MPV 9.9 FL (7.4-10.4); RBC 3.38 XMIL (4.7-6.1); RDW 13.6 % (11.5-14.5); WBC 11.01 X1000 (4.8-10.8)
[2018-10-31] MEDS: DUONEB (A & A) INH SCH ×5 (08:12→23:26)
[2018-10-31 08:17] LABS: ESTIMATED GFR > 60
[2018-10-31 08:19] LABS: AGAP 10; BUN 15 mg/dL (8-22); CHLORIDE 89 mmol/L (98-107); COSMO 269; CREATININE 0.5 mg/dL (0.7-1.2); GLUCOSE 124 mg/dL (70-104); POTASSIUM 4.1 mmol/L (3.5-5.1); SODIUM 133 mmol/L (136-145); TCO2 34 mmol/L (25-35)
[2018-10-31] MEDS: SENOKOT PO SCH ×3 (09:21→21:13)
[2018-10-31] MEDS: LASIX IV SCH ×2 (09:21→21:15)
[2018-10-31] MEDS: THERA M PLUS PO SCH ×2 (09:21→21:13)
[2018-10-31] MEDS: COREG PO SCH ×2 (09:22→21:12)
[2018-10-31] MEDS: VITAMIN B-1 PO SCH (09:23)
[2018-10-31] MEDS: MIRALAX PO SCH (09:23)
[2018-10-31] MEDS: LOVENOX SUBQ SCH (09:23)
[2018-10-31] MEDS: PERCOCET-10 PO PRN ×3 (13:11→21:12)
--- NOTE | 2018-10-31 16:30 | PULMONOLOGY PROGRESS NOTE ---
DATE: 10/31/2018 SUBJECTIVE: The patient is awake, alert, and conversant. He reports his breathing has improved. His oxygen requirements have diminished to 40%. OBJECTIVE: Vital signs: The patient has been afebrile for the last 24 hours. Blood pressure 113/60, heart rate 99, respiratory rate 16, oxygen saturation 100% on 40% FiO2. HEENT: Pupils are equal and reactive. Oropharynx is clear. Neck: Supple. Chest: Reveals bilateral rhonchi. Cardiac: S1, S2. Abdomen: Soft. Extremities: Without edema. LABORATORIES: Arterial blood gas reveals pH 7.58, pCO2 of 38, PO2 of 176. White blood count 11.1, hemoglobin 9.4, platelet count 269,000. Sodium 133, potassium 4.1, chloride 89, bicarbonate 34, BUN 15, creatinine 0.5. IMPRESSIONS: A 48-year-old with: 1. Bilateral pulmonary infiltrates due to lymphoma. 2. Purulent sputum production, may be a component of bronchitis/pneumonia. 3. Immunoglobulin deficiency status post replacement therapy. 4. Hypoxemic respiratory failure. 5. Hypercapnic respiratory. PLAN: 1. Continue bronchial hygiene. 2. Continue antibiotics. 3. P.r.n. immunoglobulin replacement. 4. Wean oxygen as tolerated. 5. BiPAP as needed. 6. Follow up chest x-ray tomorrow with initiation of chemotherapy anticipated. cc: Chad Urena MD
--- NOTE | 2018-10-31 17:47 | PROGRESS NOTE ---
DATE: 10/31/2018 SUBJECTIVE: The patient is sitting up in bed. He states that he feels better. No acute events noted overnight. OBJECTIVE: Vital Signs: Temperature 98 degrees, blood pressure 106/65, heart rate 99, respirations 20, O2 saturation 98% on Ventimask. General: This is a chronically ill-appearing elderly male lying in bed in no acute distress. Heart: S1, S2 normal. Tachycardic. Lungs: Equal air entry bilaterally. No crackles. No rales. Abdomen: Positive bowel sounds. Soft, nontender, nondistended. Extremities: No edema, no cyanosis. Neurologic:The patient is alert and oriented x4. LABORATORY DATA: Hemoglobin 9.4, hematocrit 30, platelets 269,000, white blood cell count 11, sodium 133, potassium 4.1, chloride 89, CO2 34, BUN 15, creatinine 0.5, glucose 124. ASSESSMENT AND PLAN: 1. Acute on chronic hypoxemic and hypercapnic respiratory failure. 2. Bilateral pulmonary infiltrates likely secondary to lymphoma. Aware. 3. Diffuse large B-cell lymphoma. We will await the treatment plan from the oncologist. 4. Chronic pain syndrome. Continue on Percocet as needed. 5. Castleman disease. Aware. 6. Deep vein thrombosis prophylaxis. Continue on Lovenox. cc: Marychuy Mckenna MD [facility]
[2018-10-31] MEDS: ATIVAN IV PRN (18:49)
[2018-11-01] MEDS: PERCOCET-10 PO PRN ×6 (01:32→21:46)
[2018-11-01 03:41] LABS: ALLEN TEST YES; BE 14.7 mmoll (-3.0-3.0); BLOOD TYPE ARTERIAL; HCO3-(ACT) 36.4 mmoll (20.0-26.0); METHB 1.2 % (0.0-1.5); O2(CT) 13.4 mL/dL (15.0-23.0); O2HB 96.8 % (95.0-99.0); PO2(98.6) 138 mmHg (60-100); SAMPLE BLOOD; SAO2 100.2 % (95.0-100.0); THB 9.6 g/dL (11.5-17.4); pH(98.6) 7.46 (7.35-7.45)
[2018-11-01 03:49] LABS: MODALITY VENTIMASK; PCO2(98.6) 57 mmHg (35-45)
[2018-11-01] MEDS: ULTRAM PO PRN ×4 (04:19→23:13)
[2018-11-01] MEDS: ROBITUSSIN-DM PO PRN ×3 (04:19→23:13)
--- NOTE | 2018-11-01 05:01 | PROGRESS NOTE ---
DATE: 10/30/2018 SUBJECTIVE: The patient is very anxious today. He reports that he still feels short of breath. OBJECTIVE: Vital Signs: Temperature 98.4 degrees, blood pressure 122/73, heart rate 110, respirations 20, O2 saturation 95% on Venturi mask. General: This is a chronically ill-appearing elderly male lying in bed in no acute distress. Head: Normocephalic, atraumatic. Heart: S1, S2 normal tachycardic. Lungs: Diminished breath sounds bilaterally. Abdomen: Positive bowel sounds. Soft, nontender, nondistended. Extremities: Trace pedal edema. Neuro: The patient is alert and oriented x4. He does appear anxious. LABS: White blood cell count 10, hemoglobin 9.5, hematocrit 30, platelets 316,000. ABG pH 7.42, pCO2 61, PO2 56, bicarb 34. Sodium 134, potassium 4.1, chloride 87, CO2 32, BUN 20, creatinine 0.5, glucose 103. ASSESSMENT AND PLAN: 1. Acute on chronic hypoxemic and hypercapnic respiratory failure. 2. Diffuse large B-cell lymphoma. Will await the treatment plan from the oncologist. 3. Castleman disease. Aware. 4. Immunoglobulin deficiency. The patient received immunoglobulin yesterday. 5. Chronic pain syndrome. Continue on p.r.n. Percocet. 6. Anxiety disorder. The patient is on p.r.n. Ativan. 7. Deep vein thrombosis prophylaxis. Continue on Lovenox. cc: Marychuy Mckenna MD
[2018-11-01] MEDS: DOXYCYCLINE PO SCH ×2 (05:22→17:26)
[2018-11-01] MEDS: PRILOSEC PO SCH ×2 (05:22→06:05)
[2018-11-01] MEDS: MAXIPIME 2 GM in NS 100 ML IV SCH ×2 (05:22→17:26)
[2018-11-01] MEDS: ATIVAN IV PRN ×2 (05:49→20:04)
--- NOTE | 2018-11-01 06:57 | Diag Imaging Result Doc PS360 ---
CHEST-PORTABLE - 11/01/2018 INDICATION: abnormal exam COMPARISON: 10/28/2018 FINDINGS: Stable dense bilateral pulmonary consolidations right greater than left. Stable trace pleural effusions. No pneumothorax. IMPRESSION: No change from prior. Electronically signed by Feliz Guerrero 11/01/2018 6:55 AM
[2018-11-01] MEDS: DUONEB (A & A) INH SCH ×5 (08:17→23:14)
[2018-11-01 08:37] LABS: AGAP 12; BUN 16 mg/dL (8-22); CALCIUM 9.2 mg/dL (8.8-10.2); CHLORIDE 92 mmol/L (98-107); COSMO 277; CREATININE 0.5 mg/dL (0.7-1.2); ESTIMATED GFR > 60; GLUCOSE 96 mg/dL (70-104); POTASSIUM 4.4 mmol/L (3.5-5.1); SODIUM 138 mmol/L (136-145); TCO2 34 mmol/L (25-35)
[2018-11-01] MEDS: THERA M PLUS PO SCH ×2 (09:39→20:06)
[2018-11-01] MEDS: COREG PO SCH ×2 (09:39→20:05)
[2018-11-01] MEDS: LASIX IV SCH ×2 (09:40→20:06)
[2018-11-01] MEDS: LOVENOX SUBQ SCH (09:40)
[2018-11-01] MEDS: MIRALAX PO SCH (09:40)
[2018-11-01] MEDS: SENOKOT PO SCH ×2 (09:40→20:05)
[2018-11-01] MEDS: VITAMIN B-1 PO SCH (09:40)
[2018-11-01] MEDS: ZYLOPRIM PO SCH ×2 (13:37→20:05)
--- NOTE | 2018-11-01 14:32 | PROGRESS NOTE ---
DATE: 11/01/2018 SUBJECTIVE: The patient is resting comfortably in bed. No acute events noted overnight. OBJECTIVE: Vital Signs: Temperature 98.4 degrees, blood pressure 109/69, heart rate 96, respirations 16, O2 saturation is 100% on a Venturi mask. General: This is a chronically ill- appearing, elderly male sitting up in bed, in no acute distress. Heart: S1, S2 normal. Tachycardic. Lungs: Equal air entry bilaterally. No crackles. No rales. Abdomen: Positive bowel sounds. Soft, nontender, nondistended. Extremities: No edema. No cyanosis. Neurologic: The patient is alert and oriented x4. LABS: Sodium 138, potassium 4.4, chloride 92, CO2 34, BUN 16, creatinine 0.5, glucose 96. Chest x-ray: Dense bilateral pulmonary consolidations. ASSESSMENT AND PLAN: 1. Acute on chronic hypoxemic and hypercapnic respiratory failure. Continue with the current treatment regimen. 2. Bilateral pulmonary infiltrates secondary to lymphoma. Aware. 3. Diffuse large B-cell lymphoma. Will await the treatment plan from the oncologist. 4. Chronic pain syndrome. Continue on p.r.n. Percocet. 5. Anxiety disorder. Continue on p.r.n. Ativan. 6. Castleman disease. Aware. 7. Deep vein thrombosis prophylaxis. Continue on Lovenox. cc: Marychuy Mckenna MD
--- NOTE | 2018-11-01 16:53 | HEMO/ONC PROGRESS NOTE ---
DATE: 11/01/2018 SUBJECTIVE: Mr. Beltran is sitting up in his hospital bed in no acute distress at this time. He continues to have issues with shortness of breath and is wearing a breathing mask. OBJECTIVE: Vital Signs: Temperature 98.4 degrees, heart rate 96, respirations 16, blood pressure 109/69, O2 saturation is 100% on mask. LABS AND STUDIES: No new CBC for today but sodium was 138, potassium 4.4, chloride 92, CO2 34, BUN 16, creatinine 0.5, glucose 96. Uric acid is high at 9.6. PHYSICAL EXAM: Cardiovascular: S1, S2 heard. No murmurs, gallops, rubs appreciated. Respiratory: Coarse breath sounds with wheezing noted. Gastrointestinal: Abdomen soft with positive bowel sounds. Extremities: Patient has bilateral pedal edema. ASSESSMENT AND PLAN: 1. Newly diagnosed diffuse large B-cell lymphoma. The patient had biopsies last week and they have come back and he has diffuse large B-cell lymphoma. Discussed with the patient today his treatment option of R-CHOP. We discussed the medicines in detail as well as risk and side effects. The patient previously had an echocardiogram which showed ejection fraction of 65%. He has previously had a hepatitis panel which was negative. We will go ahead and start on allopurinol 300 mg b.i.d. The hope is that will be able to start R-CHOP in the next 2 to 3 days while inpatient. If not we can see him in outpatient began treatment at that time. Written information regarding the medications has been given to the patient and he will need a port placed. 2. Acute respiratory failure. Seems likely to be related to his lymphoma. He continues on antibiotics at this time. 3. Bilateral pulmonary infiltrate secondary to his lymphoma. Treating as per above. 4. Pain. Continue Percocet as needed. 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 He will proceed with treatment of his diffuse large B-cell lymphoma as per above. Dictated by BEVERLY Hand for Pineda Tucker MD cc: Pineda Tucker MD
[2018-11-02] MEDS: PERCOCET-10 PO PRN ×6 (02:25→22:35)
[2018-11-02] MEDS: ULTRAM PO PRN ×4 (05:15→23:38)
[2018-11-02] MEDS: ROBITUSSIN-DM PO PRN ×2 (05:16→20:18)
[2018-11-02] MEDS: PRILOSEC PO SCH (06:41)
[2018-11-02] MEDS: DOXYCYCLINE PO SCH ×2 (06:41→17:22)
[2018-11-02] MEDS: MAXIPIME 2 GM in NS 100 ML IV SCH ×2 (06:41→17:23)
[2018-11-02 06:59] LABS: BASO% 1.1 % (0.0-0.8); EOS# 0.56 X1000 (0.0-0.7); EOS% 5.9 % (0.0-10.0); HEMATOCRIT 29.4 % (42.0-52.0); IMM GRAN# 0.15 X1000 (0.0-0.04); IMM GRAN% 1.6 % (0.0-0.5); LYMPH# 1.87 X1000 (1.2-3.4); LYMPH% 19.7 % (20.5-51.1); MCH 27.3 PG (27-31); MCHC 30.6 g/dL (33-37); MCV 89.1 FL (81-99); MONO# 2.07 X1000 (0.11-0.59); MONO% 21.8 % (1.7-9.3); MPV 9.6 FL (7.4-10.4); NEUT# 4.76 X1000 (1.4-6.5); NEUT% 49.9 % (42.2-75.2); PLT 327 X1000 (130-400); RDW 13.7 % (11.5-14.5); WBC 9.51 X1000 (4.8-10.8)
[2018-11-02 07:11] LABS: LYMPHS 20 % (21-51); MONO 20 % (1-9); SEGS 60 % (42-75)
[2018-11-02 07:15] LABS: AGAP 12; BUN 16 mg/dL (8-22); CHLORIDE 91 mmol/L (98-107); COSMO 274; CREATININE 0.5 mg/dL (0.7-1.2); ESTIMATED GFR > 60; GLUCOSE 89 mg/dL (70-104); POTASSIUM 4.2 mmol/L (3.5-5.1); SODIUM 137 mmol/L (136-145); TCO2 34 mmol/L (25-35)
[2018-11-02] MEDS: DUONEB (A & A) INH SCH ×5 (07:39→23:04)
[2018-11-02] MEDS: COREG PO SCH ×2 (08:12→20:18)
[2018-11-02] MEDS: SENOKOT PO SCH ×2 (08:12→20:20)
[2018-11-02] MEDS: VITAMIN B-1 PO SCH (08:12)
[2018-11-02] MEDS: THERA M PLUS PO SCH ×2 (08:12→20:18)
[2018-11-02] MEDS: ATIVAN IV PRN ×2 (08:12→20:36)
[2018-11-02] MEDS: LASIX IV SCH ×2 (08:12→20:18)
[2018-11-02] MEDS: LOVENOX SUBQ SCH (08:13)
[2018-11-02] MEDS: ZYLOPRIM PO SCH ×2 (08:13→20:18)
[2018-11-02] MEDS: MIRALAX PO SCH (08:13)
--- NOTE | 2018-11-02 13:30 | PROGRESS NOTE ---
DATE: 11/02/2018 SUBJECTIVE: This is a 48-year-old. No primary care physician. Past medical history of COPD, Castleman's disease, alcohol and nicotine abuse, marijuana abuse. The last time he came to facility was 10/01/2018 and underwent left-sided thoracentesis. Prior to that, he was admitted in August for presumed sepsis from right lung pneumonia. The patient comes in complaining of a 5 day history of worsening shortness of breath. He says that he is always has had chronic dyspnea with moderate exertion but over the last 5 days his exercise tolerance has been plummeting, had been having orthopnea, paroxysmal nocturnal dyspnea. Admits to having mild lower extremity swelling saying that he has a chronic cough that has worsened with production of whitish sputum. Denies any fever or chills. He stays diaphoretic. Has not had any contact with anybody with respiratory illness. Denies GI or complaints, a rash, focal neurologic complaints. He admits to having pleuritic chest pain the last couple of days so admitted with acute respiratory failure secondary to chronic obstructive pulmonary disease, congestive heart failure, and possible bilateral pneumonia. He has mild COPD with exacerbation, congestive heart failure, probable pneumonia, Castleman's disease, alcohol abuse, nicotine dependence, marijuana abuse. Today, he says he is feeling better. He is still a little short of breath. Does not feel like he is ready to go home. OBJECTIVE: Vital signs: Temperature 98.1, pulse 103, respirations 20, blood pressure 120/76. HEENT: Pupils are equal. Lungs sound clear anterolateral both anterior and posterior as well. Cardiovascular exam: Regular rhythm and rate without murmur or S3. Abdomen: Soft. Skin: Warm and dry. ASSESSMENT AND PLAN: 1. [id number] hypoxemic hypercapnic respiratory failure. Continue current treatment regimen. 2. Bilateral pulmonary infiltrates secondary to lymphoma. Aware. 3. Newly diagnosed diffuse large B-cell lymphoma. Wait for treatment plan. I think they plan on putting a port and starting treatment. Biopsies last week that came back as diffuse large B- cell lymphoma, discussed with the patient starting R-CHOP therapy and discussed treatment in detail. Previously had a hepatitis panel, which was negative. Echocardiogram showed ejection fraction of 65%. Hope to start the R-CHOP therapy in the next 2-3 days, and I think place a port. 4. Chronic pain syndrome on Percocet. 5. Anxiety disorder. 6. Castleman's disease. Aware. 7. Deep venous thrombosis prophylaxis. cc: Brendan Hartman MD
--- NOTE | 2018-11-02 15:56 | CONSULTATION ---
DATE OF CONSULTATION: 11/02/2018 Mr. Last Beltran is a 48-year-old white male patient Dr. Hartman and [place] who has been diagnosed with lymphoma, needs chemotherapy and we were asked to place a Port-A-Cath. He has lung involvement has some shortness of breath and the plan is to begin his treatment while hospitalized. On exam, Mr. Beltran is a middle aged white male who is on closed face oxygen. Has some shortness of breath. He wears a sanchez. He is awake, cooperative. No focal deficits. He has no jaundice. No oral lesions. No cervical or supraclavicular lymphadenopathy. His heart has a regular rate. His lungs have some crackles on inspiration. He does have some shortness of breath. His abdomen was soft, nontender, without palpable mass. No costovertebral tenderness. Rectal exam was not performed. He does have palpable peripheral pulses. No peripheral edema and no focal deficit. PLAN: Placement of a Port-A-Cath tomorrow so that he can be treated for his diffuse large B-cell lymphoma. I have discussed the procedure in detail with him including risks of bleeding, infection, nonfunctional port, pneumothorax. He understands the need for this port and wants to proceed. cc: Leilani Llanos MD
[2018-11-03] MEDS: PERCOCET-10 PO PRN ×4 (02:38→21:18)
[2018-11-03] MEDS: ATIVAN IV PRN ×2 (04:30→18:05)
[2018-11-03] MEDS: ROBITUSSIN-DM PO PRN (05:13)
[2018-11-03] MEDS: ULTRAM PO PRN ×3 (05:43→20:40)
[2018-11-03] MEDS: DOXYCYCLINE PO SCH ×2 (05:44→16:59)
[2018-11-03] MEDS: MAXIPIME 2 GM in NS 100 ML IV SCH ×2 (05:55→16:59)
[2018-11-03] MEDS: PRILOSEC PO SCH (06:45)
[2018-11-03] MEDS: DUONEB (A & A) INH SCH ×5 (07:29→23:23)
[2018-11-03] MEDS ORDERED: NS 250 ML ONE (08:53)
[2018-11-03] MEDS ORDERED: XYLOCAINE 1% ONE (08:53)
[2018-11-03] MEDS ORDERED: HEPARIN ONE (08:53)
[2018-11-03] MEDS ORDERED: XYLOCAINE-MPF 2% ONE (09:32)
[2018-11-03] MEDS ORDERED: DIPRIVAN 1% ONE (09:34)
[2018-11-03] MEDS ORDERED: DECADRON ONE (09:38)
[2018-11-03] MEDS ORDERED: ZOFRAN ONE (09:38)
[2018-11-03] MEDS ORDERED: NEOSPORIN OINTMENT PACKET ONE (11:15)
[2018-11-03] MEDS ORDERED: DILAUDID ONE (12:25)
[2018-11-03] MEDS ORDERED: PERCOCET-10 ONE (12:45)
--- NOTE | 2018-11-03 13:31 | PROGRESS NOTE ---
DATE: 11/03/2018 SUBJECTIVE: Mr. Beltran is very anxious. He feels like he is breathing a little better. He wanted to know if there is anything I could give him for his anxiety. He is sitting up in the bed with his O2 nasal cannula on. OBJECTIVE: Vital Signs: Temp 98.2, pulse 112, respirations 12, blood pressure 150/67. HEENT: Pupils are equal and round. Lungs: Clear in all lung stokes. Cardiovascular: Regular rhythm and rate without murmur or S3. Abdomen: Soft. Skin: Warm and dry. Urine output is a little over 1000 mL. ASSESSMENT AND PLAN: 1. We will place a Port-A-Cath so he can be treated for his large B-cell lymphoma. 2. Large B-cell lymphoma, presented with bilateral pulmonary infiltrates. Clinically seems to be moving air better. Plan is to start him on his R-CHOP therapy. 3. Chronic pain syndrome, on Percocet. 4. Anxiety disorder. 5. Castleman disease. 6. Continue deep venous thrombosis prophylaxis. I do not see any new changes in his orders. cc: Brendan Hartman MD
--- NOTE | 2018-11-03 14:26 | OPERATIVE NOTE ---
PROCEDURE DATE: 11/03/2018 PREOPERATIVE DIAGNOSIS: B-cell lymphoma requiring chemotherapy. POSTOPERATIVE DIAGNOSIS: B-cell lymphoma requiring chemotherapy. PRINCIPAL PROCEDURE: Right internal jugular Port-A-Cath using ultrasound and fluoroscopy. SURGEON: Leilani Llanos MD. ANESTHESIA: General. ESTIMATED BLOOD LOSS: 30 mL. DRAINS: None. INDICATIONS: Mr. Last Beltran is a 48-year-old white male who has been diagnosed with lymphoma that is involving his lungs in addition to his lymph nodes. He will need chemotherapy, and we were asked to place access. DESCRIPTION OF PROCEDURE: The patient was brought to the operating room, placed supine, received general anesthesia, was ventilated. His right neck, shoulder, and anterior chest were prepped and draped within a sterile field. We used an Ioban on the skin. He received Ancef prophylactically. I began by cutting down on the external jugular vein but this vein turned out to be fragile and small and I was not able to thread the 8-Libyan catheter through this vein, so I changed to the right internal jugular vein. Using ultrasound guidance between the 2 heads of the right sternocleidomastoid muscle, I used an 18-gauge needle to access the right internal jugular vein on the first stick. A guidewire was placed through this needle into the vein and directed to the right side of the heart with the help of fluoroscopy. We removed the needle. I made a counterincision on the anterior right chest and a subcutaneous pocket was created for the port using cautery and blunt finger dissection. I tunneled an 8-Libyan catheter from the chest incision to the neck incision. I placed a dilator and sheath over the guidewire into the superior vena cava with the help of fluoroscopy. I removed the guidewire and the dilator and through the sheath, I placed the distal end of our catheter and directed it to the right atrium. The sheath was peeled away. The other end of the catheter was hooked to the port. The port was secured in its pocket with two 2-0 silk stitches. The port was functioning well and I flushed it with heparin saline. I closed our incisions in layers. First layer with 3-0 popoff Vicryl stitches, closed the subcutaneous tissue. Skin was closed with 4-0 Monocryl subcuticular stitch. Steri- Strips were applied. He tolerated the procedure well. We were happy with the placement and function of the catheter. He will go to the recovery room and then be readmitted to the floor. cc: Leilani Llanos MD
[2018-11-03] MEDS: ZYLOPRIM PO SCH ×2 (14:28→20:39)
[2018-11-03] MEDS: SENOKOT PO SCH ×2 (14:28→20:41)
[2018-11-03] MEDS: THERA M PLUS PO SCH ×2 (14:29→20:39)
[2018-11-03] MEDS: COREG PO SCH ×2 (14:29→20:39)
[2018-11-03] MEDS: LASIX IV SCH (14:29)
[2018-11-03] MEDS: VITAMIN B-1 PO SCH (14:29)
[2018-11-03] MEDS: MIRALAX PO SCH (14:30)
[2018-11-03] MEDS: LOVENOX SUBQ SCH (14:39)
[2018-11-04] MEDS: PERCOCET-10 PO PRN ×6 (01:18→21:07)
[2018-11-04] MEDS: LASIX IV SCH ×2 (01:31→11:00)
[2018-11-04] MEDS: ULTRAM PO PRN ×3 (02:33→22:23)
[2018-11-04] MEDS: DOXYCYCLINE PO SCH ×2 (05:16→17:09)
[2018-11-04] MEDS: MAXIPIME 2 GM in NS 100 ML IV SCH (05:17)
[2018-11-04] MEDS: PRILOSEC PO SCH (06:01)
[2018-11-04] MEDS: ATIVAN IV PRN ×2 (06:21→14:42)
[2018-11-04] MEDS: DUONEB (A & A) INH SCH ×5 (07:23→22:50)
[2018-11-04] MEDS: THERA M PLUS PO SCH ×2 (09:01→20:39)
[2018-11-04] MEDS: COREG PO SCH ×2 (09:01→20:39)
[2018-11-04] MEDS: ZYLOPRIM PO SCH ×2 (09:01→20:39)
[2018-11-04] MEDS: LOVENOX SUBQ SCH (09:01)
[2018-11-04] MEDS: VITAMIN B-1 PO SCH (09:02)
[2018-11-04] MEDS: SENOKOT PO SCH ×2 (10:02→20:40)
[2018-11-04] MEDS: MIRALAX PO SCH (10:02)
[2018-11-04] MEDS ORDERED: EMLA CREAM TOP PRN (12:41)
--- NOTE | 2018-11-04 13:48 | PROGRESS NOTE ---
DATE: 11/04/2018 SUBJECTIVE: Mr. Beltran is breathing a little better. Anxiety I think is a little better. He is eating well. He is comfortable. OBJECTIVE: Temperature 98.6 degrees, pulse 98, respirations 20, blood pressure 119/74. Pupils are equal and round. Lungs are clear in all lung stokes. Cardiovascular: Regular rhythm and rate without murmur or S3. URINE OUTPUT: About 1000 mL. ASSESSMENT AND PLAN: 1. He had a right internal jugular Port-A-Cath placed using ultrasound and fluoroscopy per Dr. Llanos. 2. Large B-cell lymphoma. Presented with bilateral pulmonary infiltrates, which overall are better and they are planning on starting R-CHOP therapy. 3. Chronic pain syndrome. On Percocet. 4. Anxiety. 5. Castleman's disease. 6. Continue deep venous thrombosis prophylaxis. REVIEW OF HIS ORDERS: I do not see any change. He is on allopurinol 300 mg b.i.d., Coreg 25 mg b.i.d., doxycycline 100 mg b.i.d., Lovenox 40 mg subcutaneous q.24 h., Lasix 40 mg IV q.12 h., guaifenesin DM p.r.n., Ativan 0.25 mg IV q.8 h. p.r.n., Lopressor 5 mg IV q.6 h. p.r.n., multivitamin 1 b.i.d., oxycodone 10 mg q.4 h. p.r.n., MiraLAX 17 g daily, Senokot 1 b.i.d., vitamin B1 of 100 mg daily, Ultram 50 mg q.6 h. cc: Brendan Hartman MD
[2018-11-04] MEDS ORDERED: BENADRYL PO ONE (15:00)
[2018-11-04] MEDS ORDERED: [UNRECOGNIZED DRUG - OTHER] IV ONE (15:00)
[2018-11-04] MEDS ORDERED: ALOXI IV ONE (15:15)
[2018-11-04] MEDS: TYLENOL PO ONE ×2 (15:19→15:20)
[2018-11-04] MEDS ORDERED: DECADRON IV ONE (15:20)
[2018-11-04] MEDS ORDERED: NS IV ONE ×2 (15:30→18:30)
[2018-11-04] MEDS ORDERED: RITUXAN IV ONE (15:30)
[2018-11-04] MEDS ORDERED: SODIUM CHLORIDE 0.9% 10 ML ONE (15:35)
[2018-11-04] MEDS ORDERED: CYTOXAN IV ONE (18:30)
[2018-11-04] MEDS ORDERED: ONCOVIN IV ONE (19:00)
[2018-11-04] MEDS ORDERED: ADRIAMYCIN IV ONE (19:15)
[2018-11-04] MEDS ORDERED: NS 500 ML IV SCH (20:45)
[2018-11-04] MEDS: ROBITUSSIN-DM PO PRN (21:38)
[2018-11-04] MEDS: PREDNISONE PO SCH (21:41)
[2018-11-05] MEDS: LASIX IV SCH ×3 (00:37→23:49)
[2018-11-05] MEDS: MAXIPIME 2 GM in NS 100 ML IV SCH ×4 (00:37→21:06)
[2018-11-05] MEDS: PERCOCET-10 PO PRN ×6 (00:51→21:32)
[2018-11-05] MEDS: DOXYCYCLINE PO SCH ×2 (05:20→17:50)
[2018-11-05] MEDS: ULTRAM PO PRN ×4 (05:21→23:49)
[2018-11-05] MEDS: PRILOSEC PO SCH (06:01)
[2018-11-05 08:08] LABS: BASO# 0.01 X1000 (0.0-0.2); BASO% 0.1 % (0.0-0.8); EOS# 0.02 X1000 (0.0-0.7); EOS% 0.2 % (0.0-10.0); HEMATOCRIT 28.8 % (42.0-52.0); HEMOGLOBIN 8.6 g/dL (14.0-18.0); IMM GRAN# 0.09 X1000 (0.0-0.04); IMM GRAN% 0.8 % (0.0-0.5); LYMPH# 0.81 X1000 (1.2-3.4); LYMPH% 7.5 % (20.5-51.1); MCH 26.5 PG (27-31); MCHC 29.9 g/dL (33-37); MCV 88.9 FL (81-99); MONO# 0.86 X1000 (0.11-0.59); MPV 9.9 FL (7.4-10.4); NEUT# 8.97 X1000 (1.4-6.5); NEUT% 83.4 % (42.2-75.2); PLT 404 X1000 (130-400); RBC 3.24 XMIL (4.7-6.1); RDW 13.6 % (11.5-14.5); WBC 10.76 X1000 (4.8-10.8)
[2018-11-05 08:12] LABS: AGAP 8; BUN 18 mg/dL (8-22); CALCIUM 8.9 mg/dL (8.8-10.2); CHLORIDE 92 mmol/L (98-107); COSMO 276; CREATININE 0.5 mg/dL (0.7-1.2); ESTIMATED GFR > 60; GLUCOSE 171 mg/dL (70-104); POTASSIUM 4.6 mmol/L (3.5-5.1); SODIUM 135 mmol/L (136-145); TCO2 35 mmol/L (25-35)
[2018-11-05] MEDS: DUONEB (A & A) INH SCH ×5 (08:34→23:40)
[2018-11-05] MEDS: VITAMIN B-1 PO SCH (08:43)
[2018-11-05] MEDS: COREG PO SCH ×3 (08:43→21:05)
[2018-11-05] MEDS: THERA M PLUS PO SCH ×3 (08:43→21:06)
[2018-11-05] MEDS: PREDNISONE PO SCH (08:43)
[2018-11-05] MEDS: ZYLOPRIM PO SCH ×3 (08:43→21:06)
[2018-11-05] MEDS: LOVENOX SUBQ SCH (08:46)
[2018-11-05] MEDS: SENOKOT PO SCH ×2 (08:50→21:06)
[2018-11-05] MEDS: MIRALAX PO SCH (08:50)
[2018-11-05] MEDS: ROBITUSSIN-DM PO PRN (10:22)
[2018-11-05] MEDS: ATIVAN IV PRN ×2 (10:22→19:55)
[2018-11-05 10:55] LABS: MAGNESIUM 1.8 mg/dL (1.5-2.7); PHOSPHORUS 4.8 mg/dL (2.7-4.5); URIC ACID 3.7 mg/dL (3.4-7.0)
--- NOTE | 2018-11-05 17:20 | PROGRESS NOTE ---
DATE: 11/05/2018 SUBJECTIVE: Mr. Beltran is breathing comfortably. He was sleeping soundly, easy to arouse. Seems to be more comfortable. OBJECTIVE: Temperature 98.1, pulse 84, respirations 18, blood pressure 120/76. Pupils are equal and round. Lungs are clear in all lung stokes. Cardiovascular: Regular rhythm and rate without murmur or S3. Abdomen is soft. Skin is warm and dry. URINE OUTPUT: 4000 mL. ASSESSMENT AND PLAN: 1. He had a right internal jugular Port-A-Cath placed per Dr. Llanos. 2. Large B cell lymphoma. Plan is to start R-CHOP therapy. 3. Chronic pain syndrome. On Percocet. 4. Anxiety. 5. Castleman's disease. 6. Continue deep venous thrombosis prophylaxis. REVIEW OF HIS ORDERS: I do not see any change in orders. He is still on cefepime 2 grams q 12 hours. cc: Brendan Hartman MD
[2018-11-05] MEDS ORDERED: UDENYCA SUBQ ONE (20:00)
[2018-11-06] MEDS: PERCOCET-10 PO PRN ×6 (01:17→21:27)
[2018-11-06] MEDS: DOXYCYCLINE PO SCH ×2 (05:59→17:59)
[2018-11-06] MEDS: PRILOSEC PO SCH (05:59)
[2018-11-06] MEDS: ULTRAM PO PRN ×3 (05:59→17:59)
[2018-11-06 07:40] LABS: BASO# 0.01 X1000 (0.0-0.2); EOS# 0.02 X1000 (0.0-0.7); EOS% 0.1 % (0.0-10.0); HEMATOCRIT 29.1 % (42.0-52.0); HEMOGLOBIN 8.8 g/dL (14.0-18.0); IMM GRAN# 0.31 X1000 (0.0-0.04); IMM GRAN% 0.9 % (0.0-0.5); LYMPH% 6.3 % (20.5-51.1); MCH 26.6 PG (27-31); MCHC 30.2 g/dL (33-37); MCV 87.9 FL (81-99); MONO# 3.69 X1000 (0.11-0.59); MONO% 10.6 % (1.7-9.3); MPV 9.5 FL (7.4-10.4); NEUT# 28.64 X1000 (1.4-6.5); NEUT% 82.1 % (42.2-75.2); PLT 468 X1000 (130-400); RBC 3.31 XMIL (4.7-6.1); RDW 13.7 % (11.5-14.5); WBC 34.87 X1000 (4.8-10.8)
[2018-11-06 07:43] LABS: LYMPHS 7 % (21-51); MONO 10 % (1-9); SEGS 83 % (42-75)
[2018-11-06 07:46] LABS: AGAP 10; ALKALINE PHOSPHATASE 104 U/L (32-122); BUN 20 mg/dL (8-22); CALCIUM 9.6 mg/dL (8.8-10.2); CHLORIDE 92 mmol/L (98-107); COSMO 281; CREATININE 0.4 mg/dL (0.7-1.2); ESTIMATED GFR > 60; GLUCOSE 89 mg/dL (70-104); GOT 24 U/L (10-34); GPT 7 U/L (10-44); POTASSIUM 4.5 mmol/L (3.5-5.1); SODIUM 140 mmol/L (136-145); TCO2 38 mmol/L (25-35); TOTAL BILIRUBIN 0.22 mg/dL (0.20-1.00)
[2018-11-06] MEDS: ZYLOPRIM PO SCH ×3 (07:47→22:19)
[2018-11-06] MEDS: PREDNISONE PO SCH ×2 (07:47→08:00)
[2018-11-06] MEDS: VITAMIN B-1 PO SCH ×2 (07:48→08:01)
[2018-11-06] MEDS: THERA M PLUS PO SCH ×3 (07:48→22:19)
[2018-11-06] MEDS: COREG PO SCH ×3 (07:48→22:00)
[2018-11-06] MEDS: ATIVAN IV PRN ×2 (07:50→20:10)
[2018-11-06] MEDS: DUONEB (A & A) INH SCH ×4 (07:50→19:31)
[2018-11-06] MEDS: MAXIPIME 2 GM in NS 100 ML IV SCH ×2 (08:00→23:38)
[2018-11-06] MEDS: MIRALAX PO SCH (08:00)
[2018-11-06] MEDS: LOVENOX SUBQ SCH (08:00)
[2018-11-06] MEDS: SENOKOT PO SCH ×2 (08:01→22:19)
--- NOTE | 2018-11-06 08:50 | PROGRESS NOTE ---
DATE: 11/06/2018 SUBJECTIVE: He is about to eat breakfast. He said he had a good night, got extended sleep. Breathing feels comfortable today. Feels like he is doing better. OBJECTIVE: Vital signs: Temperature 97.7 degrees, pulse 97, respirations 16, blood pressure 121/79. HEENT: Pupils are equal and round. Lungs: Clear in all lung stokes. Cardiovascular: Regular rhythm and rate without murmur or S3. Abdomen: Soft. Skin: Warm and dry. Urine output is 2500 mL. ASSESSMENT AND PLAN: 1. Large B-cell lymphoma. Has begun his R-CHOP therapy, doing well. 2. Chronic pain syndrome, on Percocet. 3. Anxiety. 4. Castleman syndrome. 5. Continue deep venous thrombosis prophylaxis. CURRENT ORDERS: He is on DuoNeb q.4 hours p.r.n., allopurinol 300 mg b.i.d., Coreg 25 mg b.i.d., doxycycline 100 mg b.i.d., Lasix 40 mg IV q.12, Maxipime 2 g IV q.12, multivitamin 1 twice a day, metoprolol 5 mg IV q.6 hours p.r.n., oxycodone 10 mg p.o. q.4 hours, MiraLAX 17 g daily, prednisone 100 mg p.o. daily, thiamine 100 mg daily, Senokot 1 b.i.d., Ultram 50 mg q.6 hours. cc: Brendan Hartman MD
[2018-11-06] MEDS: LASIX IV SCH ×2 (12:01→22:20)
[2018-11-06] MEDS: ROBITUSSIN-DM PO PRN (22:27)
[2018-11-07] MEDS: DUONEB (A & A) INH SCH ×6 (00:06→23:22)
[2018-11-07] MEDS: ULTRAM PO PRN ×4 (00:10→18:50)
[2018-11-07] MEDS: PERCOCET-10 PO PRN ×6 (01:29→22:03)
[2018-11-07] MEDS: PRILOSEC PO SCH (06:16)
[2018-11-07] MEDS: DOXYCYCLINE PO SCH ×2 (06:16→18:07)
[2018-11-07 07:11] LABS: BASO# 0.03 X1000 (0.0-0.2); BASO% 0.1 % (0.0-0.8); EOS# 0.19 X1000 (0.0-0.7); EOS% 0.5 % (0.0-10.0); HEMATOCRIT 28.9 % (42.0-52.0); HEMOGLOBIN 8.7 g/dL (14.0-18.0); IMM GRAN# 2.73 X1000 (0.0-0.04); IMM GRAN% 7.1 % (0.0-0.5); LYMPH# 2.63 X1000 (1.2-3.4); LYMPH% 6.8 % (20.5-51.1); MCH 26.7 PG (27-31); MCHC 30.1 g/dL (33-37); MCV 88.7 FL (81-99); MONO% 3.4 % (1.7-9.3); MPV 10.1 FL (7.4-10.4); NEUT# 31.52 X1000 (1.4-6.5); NEUT% 82.1 % (42.2-75.2); PLT 421 X1000 (130-400); RBC 3.26 XMIL (4.7-6.1); RDW 14.3 % (11.5-14.5)
[2018-11-07 07:34] LABS: AGAP 10; ALB/GLOB RATIO 0.8; ALBUMIN 2.7 g/dL (3.5-5.0); ALKALINE PHOSPHATASE 115 U/L (32-122); BUN 19 mg/dL (8-22); CALCIUM 9.1 mg/dL (8.8-10.2); CHLORIDE 93 mmol/L (98-107); COSMO 287; CREATININE 0.4 mg/dL (0.7-1.2); ESTIMATED GFR > 60; GLUCOSE 169 mg/dL (70-104); GOT 16 U/L (10-34); GPT 7 U/L (10-44); MAGNESIUM 1.8 mg/dL (1.5-2.7); PHOSPHORUS 3.8 mg/dL (2.7-4.5); POTASSIUM 3.5 mmol/L (3.5-5.1); SODIUM 141 mmol/L (136-145); TCO2 38 mmol/L (25-35); TOTAL BILIRUBIN 0.21 mg/dL (0.20-1.00); TOTAL PROTEIN 5.9 g/dL (6.3-8.3)
[2018-11-07 07:59] LABS: BANDS 10 % (0-1); HYPOCHROM 1+; LYMPHS 16 % (21-51); SEGS 72 % (42-75)
[2018-11-07] MEDS: MAXIPIME 2 GM in NS 100 ML IV SCH ×2 (09:51→22:04)
[2018-11-07] MEDS: ATIVAN IV PRN ×2 (09:51→18:50)
[2018-11-07] MEDS: PREDNISONE PO SCH (09:52)
[2018-11-07] MEDS: THERA M PLUS PO SCH ×2 (09:52→22:03)
[2018-11-07] MEDS: LOVENOX SUBQ SCH (09:52)
[2018-11-07] MEDS: VITAMIN B-1 PO SCH (09:52)
[2018-11-07] MEDS: COREG PO SCH ×2 (09:52→22:04)
[2018-11-07] MEDS: ZYLOPRIM PO SCH ×2 (09:52→22:04)
[2018-11-07] MEDS: SENOKOT PO SCH ×2 (09:58→23:41)
[2018-11-07] MEDS: MIRALAX PO SCH (09:58)
[2018-11-07] MEDS: LASIX IV SCH ×2 (12:21→22:03)
--- NOTE | 2018-11-07 14:04 | PROGRESS NOTE ---
DATE: 11/07/2018 He says he is sleeping pretty good, breathing comfortably at this time and seems to be pretty relaxed. OBJECTIVE: Temperature 98.1 degrees, pulse 110, respirations 16, blood pressure 114/70. Pupils are equal, round. Lungs: Are clear in all lung stokes. Cardiovascular: Regular rhythm, rate without murmur or S3. Abdomen: Is soft. Skin: Is warm and dry. ASSESSMENT AND PLAN: 1. Large B-cell lymphoma. Started his R-CHOP therapy. 2. Chronic pain syndrome on Percocet. 3. Anxiety. 4. Castleman syndrome. 5. Continue deep venous thrombosis prophylaxis. We will continue present orders. cc: Brendan Hartman MD
[2018-11-07] MEDS: ROBITUSSIN-DM PO PRN (18:49)
[2018-11-08] MEDS: ULTRAM PO PRN ×4 (00:51→18:56)
[2018-11-08] MEDS: PERCOCET-10 PO PRN ×6 (01:56→22:20)
[2018-11-08] MEDS: PRILOSEC PO SCH (05:59)
[2018-11-08] MEDS: DOXYCYCLINE PO SCH ×2 (06:00→18:11)
[2018-11-08] MEDS: ATIVAN IV PRN ×3 (06:04→22:20)
[2018-11-08 07:24] LABS: BASO# 0.15 X1000 (0.0-0.2); BASO% 0.3 % (0.0-0.8); EOS# 0.02 X1000 (0.0-0.7); HEMATOCRIT 27.8 % (42.0-52.0); HEMOGLOBIN 8.5 g/dL (14.0-18.0); IMM GRAN# 8.64 X1000 (0.0-0.04); IMM GRAN% 19.6 % (0.0-0.5); LYMPH# 2.45 X1000 (1.2-3.4); LYMPH% 5.5 % (20.5-51.1); MCH 27.1 PG (27-31); MCHC 30.6 g/dL (33-37); MCV 88.5 FL (81-99); MONO# 0.52 X1000 (0.11-0.59); MONO% 1.2 % (1.7-9.3); NEUT# 32.37 X1000 (1.4-6.5); NEUT% 73.4 % (42.2-75.2); PLT 414 X1000 (130-400); RBC 3.14 XMIL (4.7-6.1); RDW 14.5 % (11.5-14.5); WBC 44.15 X1000 (4.8-10.8)
[2018-11-08 07:38] LABS: AGAP 8; ALBUMIN 2.8 g/dL (3.5-5.0); ALKALINE PHOSPHATASE 266 U/L (32-122); BUN 19 mg/dL (8-22); CALCIUM 9.1 mg/dL (8.8-10.2); CHLORIDE 92 mmol/L (98-107); COSMO 282; CREATININE 0.4 mg/dL (0.7-1.2); ESTIMATED GFR > 60; GLUCOSE 133 mg/dL (70-104); GOT 15 U/L (10-34); GPT 9 U/L (10-44); SODIUM 139 mmol/L (136-145); TCO2 39 mmol/L (25-35); TOTAL PROTEIN 5.6 g/dL (6.3-8.3)
--- NOTE | 2018-11-08 07:42 | Diag Imaging Result Doc PS360 ---
EXAM: CHEST-1 VIEW INDICATION: SOB TECHNIQUE: One view COMPARISON: 11/01/2018 FINDINGS: There has been interval placement of a right chest port. The tip projects near the atriocaval junction, probably just within the right atrium. Dense bilateral consolidations are again noted. There has been modest improvement on the right since the previous study. Pleural effusions are stable. No new consolidation is identified. Cardiac silhouette is stable. There is no evidence of pneumothorax. IMPRESSION: Interval placement of right chest port and modest improvement of consolidation on the right. Electronically signed by Nam Martinez 11/08/2018 7:39 AM
[2018-11-08] MEDS: DUONEB (A & A) INH SCH ×5 (08:04→22:05)
[2018-11-08 08:45] LABS: BANDS 8 % (0-1); HYPOCHROM 1+; LYMPHS 14 % (21-51); SEGS 78 % (42-75)
[2018-11-08] MEDS: VITAMIN B-1 PO SCH (09:55)
[2018-11-08] MEDS: THERA M PLUS PO SCH ×2 (09:55→20:53)
[2018-11-08] MEDS: ZYLOPRIM PO SCH ×2 (09:56→20:53)
[2018-11-08] MEDS: SENOKOT PO SCH ×2 (09:56→23:22)
[2018-11-08] MEDS: LOVENOX SUBQ SCH (09:56)
[2018-11-08] MEDS: COREG PO SCH ×2 (09:56→20:53)
[2018-11-08] MEDS: PREDNISONE PO SCH (09:56)
[2018-11-08] MEDS: MAXIPIME 2 GM in NS 100 ML IV SCH ×2 (09:57→20:53)
[2018-11-08] MEDS: LASIX IV SCH ×3 (12:56→23:22)
[2018-11-08] MEDS: MIRALAX PO SCH (12:56)
--- NOTE | 2018-11-08 14:02 | PROGRESS NOTE ---
DATE: 11/08/2018 SUBJECTIVE: Mr. Beltran is breathing better. He would like to see if he can cut down to nasal cannula. He is eating. Seems to be more relaxed. He is getting better rest. OBJECTIVE: Temperature 98.4 degrees, pulse 94, respirations 18, blood pressure 101/61. Pupils are equal and round. Lungs are clear in all lung stokes. Cardiovascular: Regular rhythm and rate without murmur or S3. Abdomen is soft. Skin is warm and dry. Urine Output: 6500 mL. DIAGNOSTIC STUDIES: Chest x-ray from today: Interval placement on the right chest of a right chest port, modest improvement of consolidation on the right. ASSESSMENT AND PLAN: 1. Large B-cell lymphoma involving his lungs, underlying chronic obstructive pulmonary disease. He started his R-CHOP therapy. Next treatment in 3 weeks. If we can get his O2 down to 5 L, then he can think about going home. 2. Chronic pain syndrome. On Percocet and seems to be controlling it. 3. Anxiety. 4. Castleman syndrome. 5. Continue deep venous thrombosis prophylaxis. REVIEW OF ORDERS: He is on allopurinol 300 mg b.i.d., Coreg 25 mg b.i.d., doxycycline 100 mg b.i.d., Lasix 40 mg IV q.12 h., cefepime 2 g IV q.12 h., MiraLAX 17 g daily, oxycodone 10 mg p.o. q.4 h. p.r.n., prednisone at 100 mg a day, Senokot 1 b.i.d., thiamine 100 mg daily, and Ultram 50 mg q.6 h. Continue present treatment. Consider changing Lasix to p.o. soon. Follow his x-rays. Continue to try to wean down his oxygen requirement. cc: Brendan Hartman MD
[2018-11-09] MEDS: ULTRAM PO PRN ×4 (00:57→19:34)
[2018-11-09] MEDS: PERCOCET-10 PO PRN ×6 (02:16→22:30)
[2018-11-09] MEDS: PRILOSEC PO SCH (06:27)
[2018-11-09] MEDS: ATIVAN IV PRN ×3 (06:28→22:30)
[2018-11-09] MEDS: DOXYCYCLINE PO SCH ×2 (06:28→17:45)
[2018-11-09 07:08] LABS: BASO# 0.05 X1000 (0.0-0.2); BASO% 0.3 % (0.0-0.8); EOS# 0.05 X1000 (0.0-0.7); EOS% 0.3 % (0.0-10.0); HEMATOCRIT 25.6 % (42.0-52.0); HEMOGLOBIN 7.7 g/dL (14.0-18.0); IMM GRAN# 0.38 X1000 (0.0-0.04); IMM GRAN% 1.9 % (0.0-0.5); LYMPH% 9.7 % (20.5-51.1); MCH 26.6 PG (27-31); MCHC 30.1 g/dL (33-37); MCV 88.6 FL (81-99); MONO% 0.5 % (1.7-9.3); MPV 9.9 FL (7.4-10.4); NEUT# 17.19 X1000 (1.4-6.5); NEUT% 87.3 % (42.2-75.2); PLT 398 X1000 (130-400); RBC 2.89 XMIL (4.7-6.1); RDW 14.5 % (11.5-14.5); WBC 19.67 X1000 (4.8-10.8)
[2018-11-09] MEDS: DUONEB (A & A) INH SCH ×5 (07:30→22:56)
[2018-11-09 07:46] LABS: AGAP 10; BUN 18 mg/dL (8-22); CHLORIDE 92 mmol/L (98-107); COSMO 280; CREATININE 0.3 mg/dL (0.7-1.2); ESTIMATED GFR > 60; GLUCOSE 109 mg/dL (70-104); POTASSIUM 4.3 mmol/L (3.5-5.1); SODIUM 139 mmol/L (136-145); TCO2 37 mmol/L (25-35)
[2018-11-09] MEDS: LOVENOX SUBQ SCH (09:46)
[2018-11-09] MEDS: MAXIPIME 2 GM in NS 100 ML IV SCH ×2 (09:46→20:23)
[2018-11-09] MEDS: VITAMIN B-1 PO SCH (09:46)
[2018-11-09] MEDS: ZYLOPRIM PO SCH ×2 (09:47→20:24)
[2018-11-09] MEDS: COREG PO SCH ×2 (09:47→20:24)
[2018-11-09] MEDS: SENOKOT PO SCH ×2 (09:47→20:24)
[2018-11-09] MEDS: MIRALAX PO SCH ×2 (09:47→20:24)
[2018-11-09] MEDS: THERA M PLUS PO SCH ×2 (09:47→20:24)
[2018-11-09] MEDS: LASIX IV SCH (11:21)
--- NOTE | 2018-11-09 13:54 | HEMO/ONC PROGRESS NOTE ---
DATE: 11/08/2018 This is a late entry. This is actually for a visit that was done on 11/08/2018. SUBJECTIVE: Mr. Beltran reports that he was doing well. He had no acute complaints. OBJECTIVE: Vital Signs: Temperature 98.2 degrees, heart rate 97, respirations 18, blood pressure 125/80, O2 saturation 98% on high-flow oxygen. CV: On physical examination, S1, S2 heard. No murmurs, gallops, rubs appreciated. Respiratory: Coarse breath sounds throughout, scant wheezing. Gastrointestinal: Abdomen is soft with positive bowel sounds. Musculoskeletal: No obvious bony abnormalities. Extremities: The patient does have bilateral lower extremity edema that is +1 pitting. LABS AND STUDIES: White blood cells 44.15, hemoglobin 8.5, hematocrit 27.8, platelet count 414. Sodium 139, potassium 4.0, chloride 92, CO2 39. BUN 19, creatinine 0.4, glucose 133. ASSESSMENT AND PLAN: 1. Diffuse large B-cell lymphoma. Patient is now status post cycle 1 of R-CHOP on 11/04 which he tolerated well. He has no evidence of tumor lysis syndrome at this time. Plan will be to repeat dosing in approximately 4 weeks from the first cycle. 2. Tumor lysis syndrome. No evidence currently. He will continue on allopurinol. 3. Leukocytosis. This is likely related to the Neulasta that he received, as well as the steroids he has been on. Continue to monitor. No signs of infection. 4. Respiratory failure. Now that he has had treatment, the plan going forward should include trying to wean the patient off of oxygen or at least wean him off of the Venturi mask. Pulmonology is involved. Dictated by BEVERLY Hand for Rosa Epps MD cc: Rosa Epps MD I have seen and examined the patient and agree with the above note which reflects my history, physical examination, assessment and plan. Rosa GERONIMOD
--- NOTE | 2018-11-09 15:12 | Extremity Venous Study ---
PROCEDURE NAME: Venous U/S Left Leg - 11/08/2018 REQUESTING PHYSICIAN: Dr. Hartman. BOOKKEEPER ASSISTANT: Cynthia. INDICATIONS: Worsening left leg edema. EQUIPMENT: [employer] Vivid E9 ultrasound system with a 9 L-D transducer. FINDINGS: Image the left lower extremity venous system with a comparison shot to the right common femoral vein were obtained in both sagittal and transverse planes. Doppler was used to evaluate veins for spontaneity, phasicity, respiratory excursion, and digital augmentation. RESULTS: Normal venous compression, normal venous flow. No obvious superficial or deep venous thrombosis noted. There is some was some incidentally noted lymph nodes noted. INTERPRETATION: Some lymphadenopathy noted which I would recommend handling clinically, but no obvious superficial or deep venous disease noted on the left side. cc: MD Bean Cisneros CRNP
--- NOTE | 2018-11-09 15:36 | PROGRESS NOTE ---
DATE: 11/09/2018 SUBJECTIVE: The patient is sitting up in bed. He has no complaints. He has been transitioned to nasal cannula. OBJECTIVE: Vital Signs: Temperature 97 degrees, blood pressure 120/72, heart rate 105, respiratory rate 18, O2 saturations 100% on 5 L nasal cannula. General: This is a chronically ill-appearing, elderly male sitting up in bed in no acute distress. Heart: S1, S2 normal. Tachycardic. Lungs: Equal air entry bilaterally. No wheezing. No rales. No rhonchi. Abdomen: Positive bowel sounds. Soft, nontender, nondistended. Extremities: 1+ edema bilaterally. Neurologic: The patient is alert and oriented x3. LABS: White blood cell count 19, hemoglobin 7.7, hematocrit 25, platelets 398. Sodium 139, potassium 4.3, chloride 92, CO2 37. BUN 18, creatinine 0.3 glucose 109. ASSESSMENT AND PLAN: 1. Acute on chronic hypoxemic and hypercapnic respiratory failure. 2. Diffuse large B-cell lymphoma status post chemotherapy. Continue to monitor closely. The patient will follow up with the oncologist upon discharge. 3. Chronic pain syndrome. Continue on as-needed Percocet. 4. Anxiety disorder. Continue on as-needed Ativan. 5. Castleman disease. Aware. 6. Constipation. Will start the patient on scheduled laxative therapy. 7. Deep vein thrombosis prophylaxis. Continue on Lovenox. cc: Marychuy Mckenna MD MTDAnabel
[2018-11-10] MEDS: ULTRAM PO PRN ×3 (01:27→15:48)
[2018-11-10] MEDS: PERCOCET-10 PO PRN ×6 (03:02→22:31)
[2018-11-10] MEDS: DOXYCYCLINE PO SCH ×2 (06:43→17:24)
[2018-11-10] MEDS: ATIVAN IV PRN (06:43)
[2018-11-10] MEDS: PRILOSEC PO SCH (06:43)
[2018-11-10 07:04] LABS: AGAP 7; BUN 17 mg/dL (8-22); CALCIUM 8.8 mg/dL (8.8-10.2); CHLORIDE 96 mmol/L (98-107); COSMO 279; CREATININE 0.3 mg/dL (0.7-1.2); ESTIMATED GFR > 60; GLUCOSE 133 mg/dL (70-104); POTASSIUM 4.2 mmol/L (3.5-5.1); SODIUM 138 mmol/L (136-145); TCO2 35 mmol/L (25-35)
[2018-11-10 07:05] LABS: BASO# 0.01 X1000 (0.0-0.2); BASO% 0.3 % (0.0-0.8); EOS# 0.32 X1000 (0.0-0.7); EOS% 8.1 % (0.0-10.0); HEMATOCRIT 24.6 % (42.0-52.0); HEMOGLOBIN 7.3 g/dL (14.0-18.0); IMM GRAN# 0.04 X1000 (0.0-0.04); LYMPH# 0.76 X1000 (1.2-3.4); LYMPH% 19.3 % (20.5-51.1); MCH 26.4 PG (27-31); MCHC 29.7 g/dL (33-37); MCV 88.8 FL (81-99); MONO# 0.11 X1000 (0.11-0.59); MONO% 2.8 % (1.7-9.3); NEUT% 68.5 % (42.2-75.2); PLT 374 X1000 (130-400); RBC 2.77 XMIL (4.7-6.1); RDW 14.6 % (11.5-14.5); WBC 3.94 X1000 (4.8-10.8)
[2018-11-10 07:45] LABS: BANDS 2 % (0-1); LYMPHS 20 % (21-51); MONO 2 % (1-9); SEGS 76 % (42-75)
[2018-11-10] MEDS: DUONEB (A & A) INH SCH ×5 (07:48→23:40)
[2018-11-10] MEDS: MAXIPIME 2 GM in NS 100 ML IV SCH ×2 (09:22→21:19)
[2018-11-10] MEDS: LOVENOX SUBQ SCH (09:23)
[2018-11-10] MEDS: COREG PO SCH ×2 (09:23→21:18)
[2018-11-10] MEDS: VITAMIN B-1 PO SCH (09:23)
[2018-11-10] MEDS: THERA M PLUS PO SCH ×2 (09:23→21:19)
[2018-11-10] MEDS: ZYLOPRIM PO SCH ×2 (09:23→21:19)
[2018-11-10] MEDS: MIRALAX PO SCH ×2 (09:27→21:27)
[2018-11-10] MEDS: SENOKOT PO SCH ×2 (09:27→21:19)
--- NOTE | 2018-11-10 13:50 | HEMO/ONC PROGRESS NOTE ---
DATE: 11/10/2018 SUBJECTIVE: Mr. Beltran is sitting up in his hospital bed. He is in no acute distress. OBJECTIVE: Vital Signs: Temperature 98.6 degrees, heart rate 119, respirations 22, blood pressure 128/79, O2 saturation 98% on 4 L nasal cannula. Cardiovascular: Tachycardia noted, but regular rhythm. Respiratory: Coarse breath sounds throughout. Gastrointestinal: Abdomen is soft with positive bowel sounds. Extremities: Patient has 1+ bilateral pitting edema. Left is slightly greater than right. DIAGNOSTIC STUDIES: White blood cells 3.94, hemoglobin 7.3, hematocrit 24.6, platelet count 374,000. ASSESSMENT AND PLAN: 1. Diffuse large B-cell lymphoma. Patient is status post cycle #1 of R-CHOP on 11/04/2018. His counts have been okay. He is about to come to his shubham over the next 1 to 3 days. We will need to monitor his counts closely and provide transfusions as needed. He is status post Neulasta and therefore will not need additional growth factor. We would recommend discharge after his shubham has ended. This will likely be towards the end of the week. 2. Anemia, secondary to treatment. We will go ahead and transfuse the patient a unit of packed red blood cells. His anemia is worsened due to his chemotherapy treatment. 3. Leukopenia. Related to treatment. Continue to monitor closely. He is status post Neulasta after his R-CHOP. ANC is good today at 2.70. 4. Acute respiratory failure. Seems to be improving. The primary team and Pulmonology are working to wean the patient off of oxygen and have him be stabilized on hopefully nasal cannula and supplemental O2 at home. Dictated by BEVERLY Hand for Rosa Epps MD cc: Rosa Epps MD I have seen and examined the patient and agree with the above note which reflects my history, physical examination, assessment and plan. Rosa SCHULTE
[2018-11-10] MEDS: ATIVAN PO PRN ×2 (14:53→22:31)
--- NOTE | 2018-11-10 15:53 | PROGRESS NOTE ---
DATE: 11/10/2018 SUBJECTIVE: The patient is sitting up in bed. He is down to 4 L nasal cannula. OBJECTIVE: Vital Signs: Temperature 98, blood pressure 122/67, heart rate 119, respirations 16, O2 saturation 98% on 4 L nasal cannula. General: This is a chronically ill-appearing, elderly male, sitting in bed in no acute distress. Heart: S1, S2 normal. Tachycardic. Lungs: Equal air entry bilaterally. No crackles. No rales. Abdomen: Positive bowel sounds. Soft, nontender, nondistended. Extremities: Trace pedal edema. Neurologic: The patient is alert and oriented x4. LABS: White blood cell count 3.9, hemoglobin 7.3, hematocrit 24, platelets 374. Sodium 138, potassium 4.2, chloride 96, CO2 of 35, BUN 17, creatinine 0.3, glucose 133. ASSESSMENT AND PLAN: 1. Acute on chronic hypoxemic and hypercapnic respiratory failure. The patient is currently on nasal cannula. 2. Diffuse large B-cell lymphoma status post chemotherapy. Oncology is following. 3. Anemia. The patient is scheduled to receive a blood transfusion today. 4. Chronic pain syndrome. Continue on Percocet as needed. 5. Anxiety disorder. Continue on Ativan as needed. 6. Constipation. Continue on laxative therapy. 7. Castleman disease. Aware. 8. Deep vein thrombosis prophylaxis. Continue on Lovenox. cc: Marychuy Mckenna MD
[2018-11-11] MEDS: ULTRAM PO PRN ×4 (02:31→21:48)
[2018-11-11] MEDS: PERCOCET-10 PO PRN ×6 (02:31→22:52)
[2018-11-11] MEDS: ATIVAN PO PRN ×3 (06:06→21:48)
[2018-11-11] MEDS: PRILOSEC PO SCH (06:06)
[2018-11-11] MEDS: DOXYCYCLINE PO SCH ×2 (06:06→17:12)
[2018-11-11 07:05] LABS: BASO# 0.03 X1000 (0.0-0.2); BASO% 0.9 % (0.0-0.8); EOS# 0.52 X1000 (0.0-0.7); EOS% 16.3 % (0.0-10.0); HEMATOCRIT 24.9 % (42.0-52.0); HEMOGLOBIN 7.5 g/dL (14.0-18.0); IMM GRAN# 0.02 X1000 (0.0-0.04); IMM GRAN% 0.6 % (0.0-0.5); LYMPH# 0.96 X1000 (1.2-3.4); LYMPH% 30.1 % (20.5-51.1); MCH 26.2 PG (27-31); MCHC 30.1 g/dL (33-37); MCV 87.1 FL (81-99); MONO# 0.27 X1000 (0.11-0.59); MONO% 8.5 % (1.7-9.3); MPV 9.7 FL (7.4-10.4); NEUT# 1.39 X1000 (1.4-6.5); NEUT% 43.6 % (42.2-75.2); PLT 368 X1000 (130-400); RBC 2.86 XMIL (4.7-6.1); RDW 14.6 % (11.5-14.5); WBC 3.19 X1000 (4.8-10.8)
[2018-11-11] MEDS: DUONEB (A & A) INH SCH ×5 (07:31→23:05)
[2018-11-11 07:39] LABS: AGAP 9; BUN 13 mg/dL (8-22); CHLORIDE 95 mmol/L (98-107); COSMO 274; CREATININE 0.4 mg/dL (0.7-1.2); ESTIMATED GFR > 60; GLUCOSE 96 mg/dL (70-104); POTASSIUM 4.8 mmol/L (3.5-5.1); SODIUM 137 mmol/L (136-145); TCO2 33 mmol/L (25-35)
[2018-11-11] MEDS: VITAMIN B-1 PO SCH (09:07)
[2018-11-11] MEDS: LOVENOX SUBQ SCH (09:07)
[2018-11-11] MEDS: MAXIPIME 2 GM in NS 100 ML IV SCH (09:07)
[2018-11-11] MEDS: ZYLOPRIM PO SCH ×2 (09:08→21:48)
[2018-11-11] MEDS: SENOKOT PO SCH ×2 (09:08→21:49)
[2018-11-11] MEDS: COREG PO SCH ×2 (09:08→21:48)
[2018-11-11] MEDS: MIRALAX PO SCH ×2 (09:08→21:49)
[2018-11-11] MEDS: THERA M PLUS PO SCH ×2 (09:08→21:48)
--- NOTE | 2018-11-11 17:44 | PROGRESS NOTE ---
DATE: 11/11/2018 SUBJECTIVE: The patient is sitting up in bed. He has no complaints. OBJECTIVE: Vital Signs: Temperature 98.3 degrees, blood pressure 122/76, heart rate 109, respirations 19, O2 saturation is 95% on 4 L nasal cannula. General: This is a middle-aged male lying in bed, in no acute distress. Heart: S1, S2 normal. Regular rate and rhythm. Lungs: Equal air entry bilaterally. No crackles. No rales. Abdomen: Positive bowel sounds. Soft, nontender, nondistended. Extremities: Trace pedal edema. Neurologic: The patient is alert and oriented x3. LABS: White blood cell count 3.1, hemoglobin 7, hematocrit 24, platelets 368,000. Sodium 137, potassium 4.8, chloride 95, CO2 33, BUN 13, creatinine 0.4, glucose 96. ASSESSMENT AND PLAN: 1. Acute on chronic hypoxemic and hypercapnic respiratory failure. Continue to try and wean the patient's supplemental oxygen. 2. Diffuse large B-cell lymphoma, status post chemotherapy. Stable. 3. Anemia. The patient received a blood transfusion yesterday. We will continue to monitor the hemoglobin and hematocrit closely. 4. Chronic pain syndrome. Continue on Percocet as needed. 5. Anxiety disorder. Continue on Ativan as needed. 6. Castleman disease. Aware. 7. Constipation. The patient is on laxative therapy. 8. Deep vein thrombosis prophylaxis. Continue on Lovenox. cc: Marychuy Mckenna MD
[2018-11-12] MEDS: PERCOCET-10 PO PRN ×5 (02:57→19:52)
[2018-11-12] MEDS: ULTRAM PO PRN ×4 (03:39→22:30)
[2018-11-12] MEDS: ATIVAN PO PRN ×3 (05:35→22:31)
--- NOTE | 2018-11-12 06:45 | Diag Imaging Result Doc PS360 ---
EXAM: CHEST-1 VIEW HISTORY: SOB TECHNIQUE: Chest single view COMPARISON: 11/08/2018 FINDINGS: There are dense infiltrates throughout the right lung and in the mid and lower left lung. There is also basilar atelectasis and mgnjg-zo-svjrlzzj sized pleural effusions. Heart is mildly prominent. No change in the right sided portacatheter. IMPRESSION: No interval improvement. Electronically signed by Yaakov Whitlock 11/12/2018 6:42 AM
[2018-11-12] MEDS: PRILOSEC PO SCH (07:21)
[2018-11-12 07:29] LABS: AGAP 8; BUN 13 mg/dL (8-22); CALCIUM 8.9 mg/dL (8.8-10.2); CHLORIDE 95 mmol/L (98-107); COSMO 270; CREATININE 0.4 mg/dL (0.7-1.2); ESTIMATED GFR > 60; GLUCOSE 92 mg/dL (70-104); POTASSIUM 4.9 mmol/L (3.5-5.1); SODIUM 135 mmol/L (136-145); TCO2 32 mmol/L (25-35)
[2018-11-12] MEDS: DUONEB (A & A) INH SCH ×5 (07:32→23:15)
[2018-11-12] MEDS: LOVENOX SUBQ SCH (09:20)
[2018-11-12] MEDS: THERA M PLUS PO SCH ×3 (09:20→20:04)
[2018-11-12] MEDS: VITAMIN B-1 PO SCH (09:20)
[2018-11-12] MEDS: COREG PO SCH ×3 (09:20→20:04)
[2018-11-12] MEDS: ZYLOPRIM PO SCH ×3 (09:20→20:04)
[2018-11-12] MEDS: SENOKOT PO SCH ×2 (09:21→20:04)
[2018-11-12] MEDS: MIRALAX PO SCH ×2 (09:21→20:04)
[2018-11-12 09:25] LABS: EOS 14 % (1-10); LYMPHS 42 % (21-51); MONO 2 % (1-9); SEGS 40 % (42-75)
[2018-11-12 12:12] LABS: BASO# 0.04 X1000 (0.0-0.2); BASO% 1.4 % (0.0-0.8); EOS# 0.38 X1000 (0.0-0.7); EOS% 13.8 % (0.0-10.0); HEMATOCRIT 25.2 % (42.0-52.0); HEMOGLOBIN 7.6 g/dL (14.0-18.0); LYMPH# 0.94 X1000 (1.2-3.4); LYMPH% 34.1 % (20.5-51.1); MCH 26.2 PG (27-31); MCHC 30.2 g/dL (33-37); MCV 86.9 FL (81-99); MONO# 0.69 X1000 (0.11-0.59); MPV 10.5 FL (7.4-10.4); NEUT# 0.71 X1000 (1.4-6.5); NEUT% 25.7 % (42.2-75.2); PLT 406 X1000 (130-400); RDW 14.3 % (11.5-14.5); WBC 2.76 X1000 (4.8-10.8)
--- NOTE | 2018-11-12 16:27 | PROGRESS NOTE ---
DATE: 11/12/2018 SUBJECTIVE: The patient is resting comfortably in bed. He has no complaints. He is down to 3 L on the nasal cannula. OBJECTIVE: Vital Signs: Temperature 98.7 degrees, blood pressure 119/71, heart rate 103, respirations 19, O2 saturation 97% on 3 L nasal cannula. General: This is a chronically ill- appearing elderly male sitting up in bed in no acute distress. Heart: S1, S2 normal. Tachycardic. Lungs: Clear to auscultation bilaterally. No wheezing. No rales. Abdomen: Positive bowel sounds. Soft, nontender, nondistended. Extremities: No edema, no cyanosis. Neurologic: The patient is alert and oriented x3. LABS: White blood cell count 2.7, hemoglobin 7.6, hematocrit 25, platelets 406,000. Sodium 135, potassium 4.9, chloride 95, CO2 32, BUN 13, creatinine 0.4, glucose 92. Chest x-ray shows dense infiltrates throughout the right lung and the left lower lung. ASSESSMENT AND PLAN: 1. Acute on chronic hypoxemic and hypercapnic respiratory failure. We will continue to try and wean the patient's supplemental oxygen down. 2. Diffuse large B-cell lymphoma, status post chemotherapy. Stable. 3. Neutropenia. The patient is on neutropenic precautions. Oncology is following. 4. Anemia. Stable. 5. Chronic pain syndrome. Continue on Percocet as needed. 6. Anxiety disorder. Continue on Ativan as needed. 7. Castleman disease. Aware. 8. Deep vein thrombosis prophylaxis. Continue on Lovenox. cc: Marychuy Mckenna MD MTDD
[2018-11-13] MEDS: PERCOCET-10 PO PRN ×6 (00:13→21:58)
[2018-11-13] MEDS: ULTRAM PO PRN ×3 (04:28→19:04)
[2018-11-13] MEDS: PRILOSEC PO SCH ×2 (05:45→06:21)
[2018-11-13 07:57] LABS: BASO# 0.07 X1000 (0.0-0.2); BASO% 3.3 % (0.0-0.8); EOS# 0.27 X1000 (0.0-0.7); EOS% 12.7 % (0.0-10.0); HEMATOCRIT 26.1 % (42.0-52.0); HEMOGLOBIN 7.8 g/dL (14.0-18.0); IMM GRAN# 0.05 X1000 (0.0-0.04); IMM GRAN% 2.4 % (0.0-0.5); LYMPH# 0.63 X1000 (1.2-3.4); LYMPH% 29.7 % (20.5-51.1); MCHC 29.9 g/dL (33-37); MONO# 0.83 X1000 (0.11-0.59); MONO% 39.2 % (1.7-9.3); MPV 10.1 FL (7.4-10.4); NEUT% 12.7 % (42.2-75.2); PLT 435 X1000 (130-400); RDW 14.2 % (11.5-14.5); WBC 2.12 X1000 (4.8-10.8)
[2018-11-13 07:58] LABS: NEUT# 0.27 X1000 (1.4-6.5)
[2018-11-13] MEDS: DUONEB (A & A) INH SCH ×5 (08:05→22:45)
[2018-11-13] MEDS: SENOKOT PO SCH ×2 (08:58→21:27)
[2018-11-13] MEDS: MIRALAX PO SCH ×2 (08:58→21:26)
[2018-11-13] MEDS: THERA M PLUS PO SCH ×2 (09:00→20:40)
[2018-11-13] MEDS: ZYLOPRIM PO SCH ×2 (09:00→20:40)
[2018-11-13] MEDS: VITAMIN B-1 PO SCH (09:00)
[2018-11-13] MEDS: LOVENOX SUBQ SCH (09:01)
[2018-11-13] MEDS: COREG PO SCH ×2 (09:01→20:40)
[2018-11-13] MEDS: ATIVAN PO PRN ×2 (09:52→18:01)
[2018-11-14] MEDS: ULTRAM PO PRN ×4 (00:59→20:03)
[2018-11-14] MEDS: ATIVAN PO PRN ×3 (02:04→18:00)
[2018-11-14] MEDS: PERCOCET-10 PO PRN ×6 (02:04→22:00)
[2018-11-14] MEDS: PRILOSEC PO SCH (06:09)
[2018-11-14 07:20] LABS: BASO# 0.11 X1000 (0.0-0.2); BASO% 3.2 % (0.0-0.8); EOS# 0.26 X1000 (0.0-0.7); EOS% 7.7 % (0.0-10.0); HEMATOCRIT 26.2 % (42.0-52.0); HEMOGLOBIN 7.9 g/dL (14.0-18.0); IMM GRAN# 0.28 X1000 (0.0-0.04); IMM GRAN% 8.3 % (0.0-0.5); LYMPH% 29.5 % (20.5-51.1); MCH 26.3 PG (27-31); MCHC 30.2 g/dL (33-37); MCV 87.3 FL (81-99); MONO# 1.48 X1000 (0.11-0.59); MONO% 43.7 % (1.7-9.3); MPV 9.7 FL (7.4-10.4); NEUT% 7.6 % (42.2-75.2); PLT 444 X1000 (130-400); RDW 14.5 % (11.5-14.5); WBC 3.39 X1000 (4.8-10.8)
[2018-11-14 07:21] LABS: NEUT# 0.26 X1000 (1.4-6.5)
[2018-11-14] MEDS: DUONEB (A & A) INH SCH ×5 (07:26→23:00)
[2018-11-14 07:30] LABS: AGAP 11; BUN 11 mg/dL (8-22); CALCIUM 8.8 mg/dL (8.8-10.2); CHLORIDE 97 mmol/L (98-107); COSMO 275; CREATININE 0.4 mg/dL (0.7-1.2); ESTIMATED GFR > 60; GLUCOSE 93 mg/dL (70-104); POTASSIUM 4.4 mmol/L (3.5-5.1); SODIUM 138 mmol/L (136-145); TCO2 30 mmol/L (25-35)
[2018-11-14] MEDS: MIRALAX PO SCH ×2 (09:27→20:03)
[2018-11-14] MEDS: THERA M PLUS PO SCH ×2 (09:27→20:03)
[2018-11-14] MEDS: SENOKOT PO SCH ×2 (09:27→20:04)
[2018-11-14] MEDS: COREG PO SCH ×2 (09:27→20:07)
[2018-11-14] MEDS: VITAMIN B-1 PO SCH (09:28)
[2018-11-14] MEDS: ZYLOPRIM PO SCH ×2 (09:28→20:03)
[2018-11-14] MEDS: LOVENOX SUBQ SCH (09:28)
[2018-11-15] MEDS: PERCOCET-10 PO PRN ×6 (02:03→21:57)
[2018-11-15] MEDS: ATIVAN PO PRN ×3 (02:03→21:58)
[2018-11-15] MEDS: ULTRAM PO PRN ×4 (03:04→21:57)
--- NOTE | 2018-11-15 04:18 | PROGRESS NOTE ---
DATE: 11/13/2018 SUBJECTIVE: The patient is resting comfortably. He has no complaints. He is afebrile. OBJECTIVE: Vital Signs: Temperature 98.4 degrees, blood pressure 125/75, heart rate 104, respirations 18, O2 saturation 98% on 2 L nasal cannula. General: This is a chronically ill- appearing elderly male lying in bed in no acute distress. Heart: S1, S2 normal. Tachycardic. Lungs: Equal air entry bilaterally. No crackles, no rales. Abdomen: Positive bowel sounds. Soft, nontender, nondistended. Extremities: No edema, no cyanosis. Neuro: The patient is alert and oriented x4. LABS: White blood cell count 2.1, hemoglobin 7.8, hematocrit 26, platelets 435,000, ANC 270. ASSESSMENT AND PLAN: 1. Acute on chronic hypoxemic and hypercapnic respiratory failure. Stable. The patient is now on 3 L nasal cannula. 2. Diffuse large B-cell lymphoma status post chemotherapy. Stable. 3. Neutropenia. Continue on neutropenic precautions. Further management as per the oncologist. 4. Chronic pain syndrome. Continue on Percocet as needed. 5. Anemia. Stable. 6. Castleman disease. Aware. 7. Anxiety disorder. Continue on Xanax as needed. 8. Deep vein thrombosis prophylaxis. Continue on Lovenox. cc: Marychuy Mckenna MD
--- NOTE | 2018-11-15 04:20 | PROGRESS NOTE ---
DATE: 11/14/2018 SUBJECTIVE: The patient is sitting up in bed. He has no complaints at this time. OBJECTIVE: Vital Signs: Temperature 98.5 degrees, blood pressure 100/63, heart rate 101, respirations 18, O2 saturation is 100% on 3 L nasal cannula. General: This is an elderly male, sitting up in bed in no acute distress. Heart: S1, S2 normal. Lungs: Equal air entry bilaterally. No crackles. No rales. Abdomen: Positive bowel sounds. Soft, nontender, nondistended. Extremities: No edema, no cyanosis. Neurologic: The patient is alert and oriented x3. DIAGNOSTIC STUDIES: White blood cell count 3.3, hemoglobin 7.9, hematocrit 26 platelets 444,000, ANC 260. ASSESSMENT AND PLAN: 1. Acute on chronic hypoxemic and hypercapnic respiratory failure. Continue on supplemental oxygen. 2. Diffuse large B-cell lymphoma status post chemotherapy. Stable. 3. Neutropenia. Continue on neutropenic precautions. 4. Chronic pain syndrome. Aware. 5. Anxiety disorder. Continue on Ativan. 6. Castleman disease. Aware. 7. Deep vein thrombosis prophylaxis. Continue on Lovenox. cc: Marychuy Mckenna MD
[2018-11-15] MEDS: PRILOSEC PO SCH (06:21)
[2018-11-15] MEDS: DUONEB (A & A) INH SCH ×5 (07:26→22:56)
[2018-11-15 08:13] LABS: NEUT% 0.5 % (42.2-75.2)
[2018-11-15 08:15] LABS: BASO# 0.14 X1000 (0.0-0.2); BASO% 2.9 % (0.0-0.8); EOS# 0.24 X1000 (0.0-0.7); HEMATOCRIT 27.4 % (42.0-52.0); HEMOGLOBIN 8.2 g/dL (14.0-18.0); IMM GRAN# 0.55 X1000 (0.0-0.04); IMM GRAN% 11.5 % (0.0-0.5); LYMPH# 1.41 X1000 (1.2-3.4); LYMPH% 29.4 % (20.5-51.1); MCH 25.9 PG (27-31); MCHC 29.9 g/dL (33-37); MCV 86.7 FL (81-99); MONO# 1.96 X1000 (0.11-0.59); MONO% 40.9 % (1.7-9.3); MPV 9.8 FL (7.4-10.4); PLT 472 X1000 (130-400); RBC 3.16 XMIL (4.7-6.1); RDW 14.5 % (11.5-14.5); WBC 4.79 X1000 (4.8-10.8)
[2018-11-15] MEDS: ZYLOPRIM PO SCH ×2 (08:30→21:26)
[2018-11-15] MEDS: VITAMIN B-1 PO SCH (08:30)
[2018-11-15] MEDS: THERA M PLUS PO SCH ×2 (08:30→21:26)
[2018-11-15] MEDS: COREG PO SCH ×2 (08:31→21:26)
[2018-11-15] MEDS: LOVENOX SUBQ SCH (08:45)
[2018-11-15] MEDS: MIRALAX PO SCH ×2 (08:46→21:26)
[2018-11-15] MEDS: SENOKOT PO SCH ×2 (08:47→21:26)
[2018-11-15 09:16] LABS: BANDS 2 % (0-1); EOS 4 % (1-10); LYMPHS 28 % (21-51); MONO 39 % (1-9); SEGS 23 % (42-75)
[2018-11-15 10:02] LABS: NEUT# 0.49 X1000 (1.4-6.5)
[2018-11-16] MEDS: PERCOCET-10 PO PRN ×6 (02:25→22:31)
[2018-11-16] MEDS: PRILOSEC PO SCH (06:07)
[2018-11-16] MEDS: ATIVAN PO PRN ×3 (06:19→22:31)
[2018-11-16 07:05] LABS: BASO# 0.21 X1000 (0.0-0.2); BASO% 3.2 % (0.0-0.8); EOS# 0.28 X1000 (0.0-0.7); EOS% 4.3 % (0.0-10.0); HEMATOCRIT 27.8 % (42.0-52.0); HEMOGLOBIN 8.2 g/dL (14.0-18.0); IMM GRAN% 18.3 % (0.0-0.5); LYMPH# 1.42 X1000 (1.2-3.4); LYMPH% 21.7 % (20.5-51.1); MCH 25.5 PG (27-31); MCHC 29.5 g/dL (33-37); MCV 86.3 FL (81-99); MONO# 2.05 X1000 (0.11-0.59); MONO% 31.3 % (1.7-9.3); MPV 9.5 FL (7.4-10.4); NEUT# 1.39 X1000 (1.4-6.5); NEUT% 21.2 % (42.2-75.2); PLT 487 X1000 (130-400); RBC 3.22 XMIL (4.7-6.1); RDW 14.5 % (11.5-14.5); WBC 6.55 X1000 (4.8-10.8)
[2018-11-16 07:24] LABS: AGAP 10; BUN 12 mg/dL (8-22); CALCIUM 9.3 mg/dL (8.8-10.2); CHLORIDE 98 mmol/L (98-107); COSMO 279; CREATININE 0.4 mg/dL (0.7-1.2); ESTIMATED GFR > 60; GLUCOSE 88 mg/dL (70-104); POTASSIUM 4.6 mmol/L (3.5-5.1); SODIUM 140 mmol/L (136-145); TCO2 32 mmol/L (25-35)
[2018-11-16 07:32] LABS: BANDS 4 % (0-1); BASO 1 % (0-1); EOS 6 % (1-10); LYMPHS 27 % (21-51); MONO 25 % (1-9); NRBC 1 % (0-0); SEGS 32 % (42-75)
[2018-11-16] MEDS: ULTRAM PO PRN ×3 (07:38→20:49)
--- NOTE | 2018-11-16 07:47 | Diag Imaging Result Doc PS360 ---
EXAM: CHEST-1 VIEW INDICATION: SOB TECHNIQUE: One view COMPARISON: 11/12/2018 FINDINGS: Right chest port is in stable position. Dense consolidation throughout the right lung and at the mid and lower lung zone on the left are essentially stable given slight differences in positioning. Bilateral effusions are stable. No new consolidation is identified. Cardiac silhouette is stable. IMPRESSION: Essentially stable chest. Electronically signed by Nam Martinez 11/16/2018 7:44 AM
[2018-11-16] MEDS: DUONEB (A & A) INH SCH ×5 (07:55→23:32)
[2018-11-16] MEDS: MIRALAX PO SCH ×2 (08:57→20:51)
[2018-11-16] MEDS: COREG PO SCH ×2 (08:58→20:50)
[2018-11-16] MEDS: SENOKOT PO SCH ×2 (08:58→20:50)
[2018-11-16] MEDS: LOVENOX SUBQ SCH (08:59)
[2018-11-16] MEDS: ZYLOPRIM PO SCH ×2 (08:59→20:50)
[2018-11-16] MEDS: THERA M PLUS PO SCH ×2 (08:59→20:50)
[2018-11-16] MEDS: VITAMIN B-1 PO SCH (08:59)
--- NOTE | 2018-11-16 13:37 | PROGRESS NOTE ---
DATE: 11/16/2018 SUBJECTIVE: Mr. Beltran is breathing a little better. He is down to 3 L nasal cannula so he feels like he has shown some improvement. His white count is down to 6,555. OBJECTIVE: Vital Signs: He remains afebrile. Temperature 99.2, pulse 93, respirations 15, and blood pressure 108/68. Pupils are equal and round. Lungs are clear in all lung stokes. Cardiovascular exam with regular rhythm and rate without murmur. S3. Urine output is 4300 mL. DIAGNOSTIC: Chest x-ray from this morning essentially stable chest. Right chest port stable position. Dense consolidation throughout the right lung and the mid and lower zone of the left lung essentially stable. ASSESSMENT AND PLAN: 1. Acute on chronic hypoxemic hypercapnic respiratory failure. Continued supplemental oxygen. Able to decrease his oxygen and improved gas exchange. 2. Diffuse large cell lymphoma status post chemotherapy appears to be stable. His white count has come back up to normal. 3. Neutropenia, resolved. 4. Chronic pain syndrome. 5. Anxiety disorder. 6. Castleman's disease. 7. Nutrition is good. His bowels are moving regular. REVIEW OF ORDERS: I do not see any change. cc: Brendan Hartman MD
--- NOTE | 2018-11-16 21:43 | PROGRESS NOTE ---
DATE: 11/15/2018 SUBJECTIVE: The patient is resting comfortably in bed, no acute events noted overnight. OBJECTIVE: VITAL SIGNS: Temperature 98.3, blood pressure 120/81, heart rate 97, respirations 15, O2 saturation 97% on 2 L nasal cannula. GENERAL: This is a chronically ill appearing male sitting up in bed in no acute distress. HEART: S1, S2 normal tachycardic. LUNGS: Equal air entry bilaterally. ABDOMEN: Positive bowel sounds, soft, nontender, nondistended. EXTREMITIES: No edema, no cyanosis. NEURO: Patient is alert, oriented x3. LABS: White blood cell count 4.7, hemoglobin 8.2, hematocrit 27, platelets 472,000, ANC 490. ASSESSMENT AND PLAN: 1. Neutropenia. Continue on neutropenia precautions. 2. Acute on chronic hypoxemic and hypercapnic respiratory failure. Will continue to try and wean the patient's supplemental oxygen. 3. Diffuse large B cell lymphoma status post chemotherapy. Stable. 4. Chronic pain syndrome. Aware. 5. Castleman disease. Aware. 6. Deep vein thrombosis prophylaxis. Continue on Lovenox. DISPOSITION: The patient can be discharged home once he is no longer neutropenic. cc: Marychuy Mckenna MD MTDD
[2018-11-17] MEDS: ULTRAM PO PRN ×3 (02:45→18:48)
[2018-11-17] MEDS: PERCOCET-10 PO PRN ×5 (02:45→20:29)
[2018-11-17] MEDS: PRILOSEC PO SCH (06:17)
[2018-11-17] MEDS: DUONEB (A & A) INH SCH ×5 (07:15→23:06)
[2018-11-17] MEDS: ATIVAN PO PRN ×2 (07:58→16:25)
[2018-11-17] MEDS: LOVENOX SUBQ SCH (07:59)
[2018-11-17] MEDS: COREG PO SCH ×2 (07:59→20:29)
[2018-11-17] MEDS: ZYLOPRIM PO SCH ×2 (07:59→20:29)
[2018-11-17] MEDS: THERA M PLUS PO SCH ×2 (07:59→20:29)
[2018-11-17] MEDS: VITAMIN B-1 PO SCH (07:59)
[2018-11-17] MEDS: SENOKOT PO SCH ×2 (08:00→20:30)
[2018-11-17] MEDS: MIRALAX PO SCH ×2 (08:00→20:30)
[2018-11-17 12:37] LABS: BASO# 0.23 X1000 (0.0-0.2); BASO% 2.4 % (0.0-0.8); EOS# 0.24 X1000 (0.0-0.7); EOS% 2.5 % (0.0-10.0); HEMATOCRIT 27.5 % (42.0-52.0); HEMOGLOBIN 8.4 g/dL (14.0-18.0); IMM GRAN# 1.57 X1000 (0.0-0.04); IMM GRAN% 16.1 % (0.0-0.5); LYMPH% 17.4 % (20.5-51.1); MCH 26.2 PG (27-31); MCHC 30.5 g/dL (33-37); MCV 85.7 FL (81-99); MONO# 2.13 X1000 (0.11-0.59); MONO% 21.8 % (1.7-9.3); NEUT# 3.88 X1000 (1.4-6.5); NEUT% 39.8 % (42.2-75.2); PLT 515 X1000 (130-400); RBC 3.21 XMIL (4.7-6.1); RDW 14.6 % (11.5-14.5); WBC 9.75 X1000 (4.8-10.8)
--- NOTE | 2018-11-17 12:55 | PROGRESS NOTE ---
DATE: 11/17/2018 SUBJECTIVE: Mr. Beltran states he is about the same. He is on 3 L of oxygen. He is fine at rest, but just is getting up to go the bathroom, he is short of breath. OBJECTIVE: Temperature 98.6 degrees, pulse 107 respirations 22, blood pressure 121/64. Pupils are equal and round. Lungs are clear in all lung stokes. Cardiovascular: Regular rhythm and rate without murmur or S3. Abdomen is soft. Skin is warm and dry. URINE OUTPUT: 4000 mL. LABORATORY: Today white count 9750, hematocrit is 27, hemoglobin is 8.4 which is stable. ASSESSMENT AND PLAN: 1. Acute on chronic hypoxemic hypercapnic respiratory failure. Continue supplemental oxygen He is at 3 L. We will hold him there. 2. Diffuse large cell lymphoma status post chemotherapy. His white count seems to have come back to normal. 3. Neutropenia, resolved. 4. Chronic pain syndrome. 5. Anxiety disorder. 6. Castleman disease. Continue physical therapy, and we will see what the plan is for his next chemotherapy regimen. He has diffuse large B-cell lymphoma. He is status post his first cycle of R-CHOP on 11/04/2018. Counts have been okay. Plan to monitor his counts and transfuse as needed. Status post Neulasta. I think we will plan the next therapy per Dr. Epps. cc: Brendan Hartman MD [facility]
[2018-11-17 12:59] LABS: BANDS 4 % (0-1); EOS 2 % (1-10); LYMPHS 20 % (21-51); MONO 18 % (1-9); SEGS 40 % (42-75)
[2018-11-18] MEDS: PERCOCET-10 PO PRN ×6 (00:31→21:57)
[2018-11-18] MEDS: ATIVAN PO PRN ×3 (00:32→17:26)
[2018-11-18] MEDS: ULTRAM PO PRN ×4 (01:16→22:47)
[2018-11-18] MEDS: PRILOSEC PO SCH (06:22)
[2018-11-18] MEDS: DUONEB (A & A) INH SCH ×5 (07:59→23:48)
[2018-11-18] MEDS: THERA M PLUS PO SCH ×2 (08:40→21:57)
[2018-11-18] MEDS: VITAMIN B-1 PO SCH (08:41)
[2018-11-18] MEDS: ZYLOPRIM PO SCH ×2 (08:41→21:58)
[2018-11-18] MEDS: COREG PO SCH ×2 (08:42→21:58)
[2018-11-18] MEDS: LOVENOX SUBQ SCH (08:43)
[2018-11-18] MEDS: SENOKOT PO SCH ×3 (08:46→22:00)
[2018-11-18] MEDS: MIRALAX PO SCH ×3 (08:46→21:59)
--- NOTE | 2018-11-18 09:17 | PROGRESS NOTE ---
DATE: 11/18/2018 SUBJECTIVE: Mr. Beltran is breathing about the same. He is wondering if he can try and go home. They are trying to arrange for oxygen. He is down to 3 L nasal cannula at the present time. OBJECTIVE: He remains afebrile, sitting up on his bed, awake and alert, oriented x3. Temperature 98.9 degrees, pulse 92, respirations 16, and blood pressure 109/68. Pupils are equal and round. Lungs are clear in all lung stokes. Cardiovascular exam regular rhythm and rate without murmur or S3. Abdomen is soft. Skin is warm and dry. Ankles with just trace edema symmetrical. Pretty much confined to the ankles and midway up to his lower leg. ASSESSMENT AND PLAN: 1. Acute on chronic hypoxemic hypercapnic respiratory failure. We have been able to wean him down to 3 L. 2. Diffuse large cell lymphoma status post chemotherapy and underlying COPD. 3. Neutropenia, which resolved. 4. Chronic pain syndrome. Aware. 5. Anxiety disorder. 6. Castleman disease. 7. We are working to get his oxygen ready for home, and hopefully we can try to go tomorrow. cc: Brendan Hartman MD
[2018-11-19] MEDS: PERCOCET-10 PO PRN ×4 (01:10→14:24)
[2018-11-19] MEDS: ATIVAN PO PRN ×2 (01:16→10:32)
[2018-11-19] MEDS: ULTRAM PO PRN ×2 (04:56→11:20)
[2018-11-19] MEDS: PRILOSEC PO SCH (06:22)
--- NOTE | 2018-11-19 06:41 | Diag Imaging Result Doc PS360 ---
CHEST-1 VIEW - 11/19/2018 INDICATION: SOB COMPARISON: 11/16/2018 FINDINGS: Stable right chest port in good position. Stable small right and [id number] left pleural effusions. Stable hazy infiltrate diffusely throughout the right lung. Similar infiltrate throughout the left lung base. Stable cardiomegaly and mild pulmonary vascular congestion. IMPRESSION: No change from prior. Electronically signed by Feliz Guerrero 11/19/2018 6:38 AM
[2018-11-19] MEDS: DUONEB (A & A) INH SCH ×2 (07:50→11:01)
[2018-11-19] MEDS: VITAMIN B-1 PO SCH (08:53)
[2018-11-19] MEDS: COREG PO SCH (08:53)
[2018-11-19] MEDS: THERA M PLUS PO SCH (08:54)
[2018-11-19] MEDS: LOVENOX SUBQ SCH (08:54)
[2018-11-19] MEDS: ZYLOPRIM PO SCH (08:54)
[2018-11-19] MEDS: MIRALAX PO SCH (08:56)
[2018-11-19] MEDS: SENOKOT PO SCH (08:56)
[2018-11-19 12:17] VITALS: BP 120/73
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
--- NOTE | 2018-11-19 16:36 | PROGRESS NOTE ---
DATE: 11/19/2018 SUBJECTIVE: He was sleeping, resting comfortably. He is still on 3 L, trying to get it set up. He is still concerned. He does not have the adequate oxygen at home, but I would like to get him home today. OBJECTIVE: Today temp 98.7 degrees, pulse 98, respirations 16, blood pressure 121/83.HEENT: Pupils are equal and round. Lungs: Clear in all lung stokes. Cardiovascular: Regular rhythm and rate without murmur or S3. URINE OUTPUT: Is 5000 mL. So good urine output. IMAGING: Chest x-ray from this morning: No change from prior. Stable right chest port in good position. Stable small right and small moderate left pleural effusion. Stable hazy infiltrate diffusely throughout the right lung. Similar infiltrate throughout the lung base. ASSESSMENT AND PLAN: 1. Acute on chronic hypoxemic hypercapnic respiratory failure. He is down to 3 L. I think he is ready go home. I would like to get him to go home. Trying to make sure he has the oxygen ease. I do not know that he will qualify yet for or if the insurance will pay for a transportable concentrator, but we will make sure he has 3 L at home. 2. Diffuse large cell lymphoma status post chemotherapy with underlying chronic obstructive pulmonary disease. 3. Neutropenia, which resolved. 4. Chronic pain syndrome. 5. Anxiety disorder. 6. Castleman's disease. 7. He will follow up with Dr. Epps. He has already initiated his 1st course of therapy for his lymphoma. cc: Brendan Hartman MD
== END 2018-11-19 14:40 | disposition home or self-care (01) | DRG 823 ==
LOC: ED 18:31 → SUATTDRO 23:23 → ICU 23:23 → EDIPHOLD 23:36 → ICU 10-19 14:29 → 3N 10-23 16:34
PROVIDERS: ATTEND Emergency Medicine
CPT/HCPCS: 32405; 36430; 71010; 71020; 71045; 71046; 71260; 77001; 77012; 80048; 80053; 80076; 82550; 82607; 82728; 82746; 82784; 82805; 83540; 83735; 83880; 84100; 84145; 84443; 84484; 84550; 85025; 85027; 85610; 85730; 86850; 86900; 86901; 86920; 87040; 87070; 87205; 87449; 88305; 88312; 93005; 93010; 93306; 93308; 93971; 94640; 94760; 94761; 96365; 96372; 96375; 96376; 97163; 99285; A9270; C1788; J0185; J0692; J1100; J1170; J1561; J1644; J1650; J1940; J1956; J2060; J2405; J2469; J2930; J3411; J3475; J7040; J7050; J7506; J7512; J9000; J9070; J9312; J9370; P9016; Q5111; Q9967

== ENCOUNTER 2019-05-18 12:04 | Inpatient (IN) ==
[2019-05-18 12:42] LABS: ALLEN TEST YES; BE 2.2 mmoll (-3.0-3.0); BLOOD TYPE ARTERIAL; HCO3-(ACT) 26.5 mmoll (20.0-26.0); METHB 1.1 % (0.0-1.5); O2(CT) 12.7 mL/dL (15.0-23.0); PO2(98.6) 278 mmHg (60-100); SAMPLE BLOOD; SAO2 100.3 % (95.0-100.0); THB 9.7 g/dL (11.5-17.4)
[2019-05-18 12:45] LABS: PCO2(98.6) 81 mmHg (35-45)
[2019-05-18 12:46] LABS: MODALITY PRB; O2HB 87.6 % (95.0-99.0)
[2019-05-18 12:50] LABS: BASO% 0.3 % (0.0-0.8); EOS# 0.13 X1000 (0.0-0.7); EOS% 0.4 % (0.0-10.0); HEMATOCRIT 31.6 % (42.0-52.0); HEMOGLOBIN 9.3 g/dL (14.0-18.0); IMM GRAN# 1.68 X1000 (0.0-0.04); IMM GRAN% 5.2 % (0.0-0.5); LYMPH# 1.12 X1000 (1.2-3.4); LYMPH% 3.4 % (20.5-51.1); MCH 28.3 PG (27-31); MCHC 29.4 g/dL (33-37); MONO# 1.44 X1000 (0.11-0.59); MONO% 4.4 % (1.7-9.3); MPV 11.1 FL (7.4-10.4); NEUT% 86.3 % (42.2-75.2); PLT 257 X1000 (130-400); RBC 3.29 XMIL (4.7-6.1); RDW 23.7 % (11.5-14.5); WBC 32.47 X1000 (4.8-10.8)
--- NOTE | 2019-05-18 13:05 | EKG Report ---
Test Performed on : 05/18/2019 1:05:25 PM Test Reason : ams Blood Pressure : / mmHG Vent. Rate : 131 BPM Atrial Rate : 131 BPM P-R Int : 142 ms QRS Dur : 088 ms QT Int : 298 ms P-R-T Axes : 048 073 023 degrees QTc Int : 440 ms Sinus tachycardia. Possible Left atrial enlargement Cannot rule out Anterior infarct , age undetermined Abnormal ECG When compared with ECG of 27-OCT-2018 18:29, No significant change was found Unconfirmed Result
[2019-05-18 13:11] LABS: ANISOCYTOSIS 2+; BANDS 6 % (0-1); EOS 2 % (1-10); HYPOCHROM 1+; LARGE PLATELETS 1+; LYMPHS 2 % (21-51); NRBC 1 % (0-0); SEGS 80 % (42-75)
[2019-05-18 13:15] LABS: AGAP 10; ALBUMIN 2.9 g/dL (3.5-5.0); ALKALINE PHOSPHATASE 319 U/L (32-122); BUN 18 mg/dL (8-22); CALCIUM 8.1 mg/dL (8.8-10.2); CHLORIDE 91 mmol/L (98-107); CK PROFILE 31 U/L (24-204); COSMO 269; CREATININE 0.5 mg/dL (0.7-1.2); ESTIMATED GFR > 60; GLUCOSE 186 mg/dL (70-104); GOT 27 U/L (10-34); GPT 16 U/L (10-44); POTASSIUM 4.8 mmol/L (3.5-5.1); SODIUM 131 mmol/L (136-145); TCO2 30 mmol/L (25-35); TOTAL BILIRUBIN 0.54 mg/dL (0.20-1.00); TOTAL PROTEIN 5.7 g/dL (6.3-8.3)
--- NOTE | 2019-05-18 13:35 | Diag Imaging Result Doc PS360 ---
CHEST-1 VIEW - 05/18/2019 INDICATION: ams/sob COMPARISON: 05/17/2019 FINDINGS: Stable right chest port. Stable significant cardiomegaly and pulmonary vascular congestion. There has been enlargement of the left basilar pleural effusion which is now moderate in size. Stable very small right pleural effusion. There is worsening central interstitial infiltrates/pulmonary edema bilaterally. IMPRESSION: Worsening pulmonary edema. Worsening left pleural effusion. Electronically signed by Feliz Guerrero 05/18/2019 1:33 PM
[2019-05-18] MEDS ORDERED: NITROGLYCERIN TOP ONE (14:00)
[2019-05-18] MEDS ORDERED: LASIX IV ONE (14:00)
[2019-05-18] MEDS ORDERED: VANCOMYCIN 1 GM/NS 1 GM/250 ML IVPB IV ONE (14:15)
[2019-05-18] MEDS ORDERED: MAXIPIME 1 GM in NS 50 ML IV ONE (14:15)
--- NOTE | 2019-05-18 14:20 | PROVIDER DOCUMENTATION ---
This chart was entered by Ricky Gordillo Scribe, acting as scribe for Jones Epstein MD. HPI-Cardiopulmonary Arrest - General Chief Complaint: Full Arrest Stated Complaint: CAT CALL Time Seen by Provider: 05/18/19 12:13 Source: patient Allergies/Adverse Reactions: Allergies Allergy/AdvReac Type Severity Reaction Status Date / Time No Known Allergies Allergy Verified 05/18/19 12:28 Home Medications: Home Medication List Medication Instructions Recorded Confirmed Last Taken Type Albuterol Sulfate Inhaler 1 puff INH DAILY 09/05/18 05/18/19 05/18/19 History [Ventolin Hfa] Fluticasone/Umeclidin/Vilanter 1 dose INHALATION DAILY 01/11/19 05/18/19 History [Trelegy Ellipta 100-62.5-25] Oxycodone/APAP 10 mg/325 mg 1 tab PO Q6H PRN PRN 01/11/19 05/18/19 05/18/19 History [Percocet-10] Ferrous Sulfate 325 mg PO BID 04/19/19 05/18/19 05/18/19 History Lorazepam 0.5 mg PO TID PRN 05/18/19 05/18/19 Unknown History Zolpidem [Ambien] 10 mg PO QHS 05/18/19 05/18/19 Unknown History - History of Present Illness-C/P Arrest Initial Comments: 49 yom presents to the after CAT Call. reported pt was at infusion center, pt started desat while receiving infusion about hr into infusion. reported pt usually premedicates w/ Benadryl and percocet. pt was given Narcan 0.5 mg. states pt had throat cancer takes chemo. Reason for Code Blue?: full arrest Initial Findings: unresponsive Recently seen or treated by another doctor?: Yes (getting infusion then ed got CAT CAll) Review of Systems - Adult - REVIEW OF SYSTEMS - ADULT ROS:: unobtainable per condition Constitutional: reports: no symptoms reported Eyes: reports: no symptoms reported Ears, Nose, Mouth & Throat: reports: no symptoms reported Cardiovascular: reports: no symptoms reported Respiratory: reports: no symptoms reported Gastrointestinal: reports: no symptoms reported Genitourinary: reports: no symptoms reported Musculoskeletal: reports: no symptoms reported Integumentary: reports: no symptoms reported Neurological: reports: no symptoms reported Psychiatric: reports: no symptoms reported Endocrine: reports: no symptoms reported Hematologic/Lymphatic: reports: no symptoms reported Allergic/Immunologic: reports: no symptoms reported All Other Systems: Reviewed and Negative Past History - Adult - PAST MEDICAL HISTORY-ADULT Review of Records: reports: Old Records Reviewed, Nursing Assessment Review, Medications Reviewed, Social history reviewed & non-contributory. Major Childhood Illnesses: reports: denies history Cardiovascular: reports: denies history Respiratory: reports: lung disease, pneumonia Gastrointestinal: reports: denies history Obstetrical/Gynecological: reports: denies history Genitourinary: reports: denies history Musculoskeletal: reports: denies history Neurological: reports: denies history Psychiatric: reports: anxiety Endocrine/Immune: reports: denies history Other Conditions: reports: denies history Additional History: Fake left eye - PRIOR SURGERIES/PROCEDURES Surgical/Procedure History: reports: none, other - PRIOR HOSPITALIZATIONS Prior Hospitalizations: reports: for similar symptoms - IMMUNIZATION STATUS Childhood Immunizations: See Nurse Assessment Flu Vaccine: See Nurse Assessment - FAMILY HISTORY Family History: reviewed, not pertinent - SOCIAL HISTORY Smoking: cigarettes, less than 1 pack/day Provider spent 3-5 mins advising pt. on dangers of tobacco.: Discussed manners to quit use, and f/u contacts for add'l counseling. Substance Use: alcohol Alcohol Use Frequency: every day Number of drinks per typical drinking period:: 5-10 drinks Physical Exam-General - PHYSICAL EXAM-ADULT Initial Vital Signs Reviewed: Yes - CONSTITUTIONAL General Appearance: other (unresponsive) - RESPIRATORY Respiratory: lungs clear - CARDIOVASCULAR Cardiovascular: tachycardia (136) - GASTROINTESTINAL (ABDOMEN) Abdominal Exam: abnormal bowel sounds (little decreased on exam) - MUSCULOSKELETAL Extremity: pedal edema Progress - PLAN OF CARE/RESULTS Progress/Plan/Lab Results: Vital Signs - 8 hr 05/18/19 12:05 05/18/19 12:10 05/18/19 12:15 Pulse Rate 132 H 134 H 135 H Respiratory Rate 11 L Blood Pressure 126/92 125/88 117/89 O2 Sat by Pulse Oximetry 100 05/18/19 12:20 05/18/19 12:22 05/18/19 12:25 Pulse Rate 135 H 136 H 135 H Respiratory Rate 12 18 12 Blood Pressure 117/89 117/89 116/86 O2 Sat by Pulse Oximetry 100 99 99 05/18/19 12:29 05/18/19 12:30 05/18/19 12:35 Pulse Rate 135 H 134 H 138 H Respiratory Rate 20 15 14 Blood Pressure 117/86 115/87 O2 Sat by Pulse Oximetry 99 100 99 05/18/19 12:41 05/18/19 12:45 05/18/19 12:50 Pulse Rate 138 H 135 H 134 H Respiratory Rate 17 24 Blood Pressure 119/88 131/91 124/91 O2 Sat by Pulse Oximetry 99 99 100 05/18/19 12:55 05/18/19 13:00 05/18/19 13:05 Pulse Rate 141 H 134 H 129 H Respiratory Rate 24 20 21 Blood Pressure 127/88 129/96 126/84 O2 Sat by Pulse Oximetry 95 98 99 05/18/19 13:10 05/18/19 13:15 05/18/19 13:20 Pulse Rate 137 H 131 H 128 H Respiratory Rate 14 14 Blood Pressure 114/82 125/88 123/94 O2 Sat by Pulse Oximetry 95 98 99 05/18/19 13:25 05/18/19 13:30 05/18/19 13:32 Pulse Rate 138 H 131 H 130 H Respiratory Rate 20 Blood Pressure 128/92 126/87 124/86 O2 Sat by Pulse Oximetry 96 96 05/18/19 13:45 Pulse Rate 128 H Respiratory Rate Blood Pressure 124/86 O2 Sat by Pulse Oximetry 96 Laboratory Results - last 24 hr 05/18/19 05/18/19 05/18/19 12:15 12:15 12:15 WBC 32.47 H RBC 3.29 L Hgb 9.3 L Hct 31.6 L MCV 96.0 MCH 28.3 MCHC 29.4 L RDW Std Deviation 23.7 H Plt Count 257 MPV 11.1 H Immature Gran % (Auto) 5.2 H Neut % (Auto) 86.3 H Lymph % (Auto) 3.4 L Barnes % (Auto) 4.4 Eos % (Auto) 0.4 Baso % (Auto) 0.3 Immature Gran # (Auto) 1.68 H Neut # (Auto) 28.00 H Lymph # (Auto) 1.12 L Barnes # (Auto) 1.44 H Eos # (Auto) 0.13 Baso # (Auto) 0.10 Segmented Neutrophils 80 H Band Neutrophils 6 H Lymphocytes 2 L Eosinophils 2 Metamyelocytes 2.0 Myelocytes 8.0 Nucleated RBCs 1 H Pathologist Review Hypochromia 1+ Large Platelets 1+ Anisocytosis 2+ Specimen Type Sample Site pH pCO2 pO2 HCO3 Base Excess Oxyhemoglobin ABG O2 Sat (Calculated) ABG O2 Saturation ABG Carboxyhemoglobin ABG Methemoglobin Brendan Test A-a O2 Difference Total Hemoglobin Lactate Blood Gas Modality FiO2 % Sodium 131 L Potassium 4.8 Chloride 91 L Carbon Dioxide 30 Anion Gap 10 BUN 18 Creatinine 0.5 L Estimated GFR/1.73 m2 > 60 BUN/Creatinine Ratio 36 Glucose 186 H Calculated Osmolality 269 Calcium 8.1 L Total Bilirubin 0.54 AST 27 ALT 16 Alkaline Phosphatase 319 H Creatine Kinase 31 Kll-Q-Futhxfxmkpo Pept Total Protein 5.7 L Albumin 2.9 L Globulin 2.8 Albumin/Globulin Ratio 1.0 Plasma Lactate 1.3 Plasma/Serum Ethyl Alc 05/18/19 05/18/19 05/18/19 12:15 12:15 12:32 WBC RBC Hgb Hct MCV MCH MCHC RDW Std Deviation Plt Count MPV Immature Gran % (Auto) Neut % (Auto) Lymph % (Auto) Barnes % (Auto) Eos % (Auto) Baso % (Auto) Immature Gran # (Auto) Neut # (Auto) Lymph # (Auto) Barnes # (Auto) Eos # (Auto) Baso # (Auto) Segmented Neutrophils Band Neutrophils Lymphocytes Eosinophils Metamyelocytes Myelocytes Nucleated RBCs Pathologist Review Hypochromia Large Platelets Anisocytosis Specimen Type ARTERIAL Sample Site R RADIAL pH 7.20 L pCO2 81 H* pO2 278 H HCO3 26.5 H Base Excess 2.2 Oxyhemoglobin 87.6 L* ABG O2 Sat (Calculated) 12.7 L ABG O2 Saturation 100.3 H ABG Carboxyhemoglobin 11.50 H* ABG Methemoglobin 1.1 Brendan Test YES A-a O2 Difference 49.0 Total Hemoglobin 9.7 L Lactate 1.10 Blood Gas Modality PRB FiO2 % 60.0 Sodium Potassium Chloride Carbon Dioxide Anion Gap BUN Creatinine Estimated GFR/1.73 m2 BUN/Creatinine Ratio Glucose Calculated Osmolality Calcium Total Bilirubin AST ALT Alkaline Phosphatase Creatine Kinase Eiv-F-Baplxwloeld Pept 8638 H Total Protein Albumin Globulin Albumin/Globulin Ratio Plasma Lactate Plasma/Serum Ethyl Alc Orders Category Date Time Status Cardiac Monitoring DIRECTED Care 05/18/19 12:33 Active NG/OG/Feeding Tube Insertion ORDERED Care 05/18/19 12:33 Active Nursing- Obtain EKG ONCE Care 05/18/19 12:33 Active Palliative Care Consult [OM.CSS] Routine Cons 05/18/19 14:16 Active CHEST-1 VIEW [RAD] Stat Exams 05/18/19 12:33 Completed ABG [RESP] Routine Lab 05/18/19 12:32 Completed ALCOHOL BLOOD Stat Lab 05/18/19 12:15 Completed BLOOD CULTURE [BLDCUL] Stat Lab 05/18/19 12:15 Results CBC WITH DIFF [HEME] Stat Lab 05/18/19 12:15 Completed COMPREHENSIVE METABOLIC PANEL [CHEM] Stat Lab 05/18/19 12:15 Completed Cardiac Profile [CK PROFILE] [SP CHEM] Stat Lab 05/18/19 12:15 Completed LACTATE, PLASMA [CHEM] Stat Lab 05/18/19 12:15 Completed PRO B-NATRIURETIC PEPTIDE Stat Lab 05/18/19 12:15 Completed URINALYSIS W/POSS RFLX CULT [URINALYSIS] Stat Lab 05/18/19 14:15 Uncollected CefEPIME [Maxipime] 1 gm Med 05/18/19 14:15 Active 0.9% Sodium Chloride Inj [Ns] 50 ml IV NOW Furosemide [Lasix] Med 05/18/19 14:00 Discontinued 60 mg IV NOW ONE Nitroglycerin Med 05/18/19 14:00 Discontinued 0.5 inch TOP NOW ONE Vancomycin 1 gm/Ns Med 05/18/19 14:15 Active 1 gm in 250 ml IV NOW BIPAP Stat Oth 05/18/19 12:33 Active EKG [EKG] Stat Ther 05/18/19 12:33 Draft Nurse [address] to [address] NG. I made 3 attempts, all unsuccessful Result Diagrams: 05/18/19 12:15 05/18/19 12:15 - EKG 1 Time of EKG reading by physician:: 13:05 EKG Read and Signed by:: Jones Epstein EKG Interpretation (*Must complete 3 of following elements*): Abnormal Rate: 131 Rhythm: sinus tachycardia [place]: normal QRS: normal [place] Interval: normal ST Wave: normal Comments: possible Lt atrial enlargement/cannot rule out anterior infract,age undetem - XRAY 1 XRAY Study: Chest Impression: See EMR Report (CHEST-1 VIEW - 05/18/2019 INDICATION: ams/sob COMPARISON: 05/17/2019 FINDINGS: Stable right chest port. Stable significant cardiomegaly and pulmonary vascular congestion. There has been enlargement of the left basilar pleural effusion which is now moderate in size. Stable very small right pleural effusion. There is worsening central interstitial infiltrates/pulmonary edema bilaterally. IMPRESSION: Worsening pulmonary edema. Worsening left pleural effusion. Electronically signed by eFliz Guerrero 05/18/2019 1:33 PM 05/18/19 1333 Interpreting Physician: Feliz Guerrero MD Dictated Date/Time: 05/18/19 1332 cc: Jones Epstein MD; None,PCP) - CONSULTS/PCP/HOSPITALIST Notification #1 *Consult/PCP/Hospitalist*: Consult w/ Dr. Webb Time Discussed: 14:17 (accepted by Dr. Webb ) Departure - Departure Date of Disposition Decision: 05/18/19 Time of Disposition Decision: 14:20 DIAGNOSIS: Tobacco use, Respiratory failure, Leukocytosis Disposition: ADMITTED INPATIENT 09 Certified Medical Emergency: Emergent Condition: Good Referrals and Follow-Ups: None,PCP [Primary Care Provider] - - Critical Care Note This patient required my direct & personal management of CC.: Yes Total Time (mins): 45 Critical Care Statement: This patient required my direct personal management to treat or rule out processes, the absence of which, could potentiallly result in sudden, clinically significant life or limb threatening deterioration. Attestation - Physician/ LIANE Attestation Patient care was provided by Advanced Practice Provider:: No The physician spent face to face time with patient:: Yes Advanced Practice Provider documentation review:: Supervising physician onsite and consulted in the evaluation and care of this patient. The physician did have a face to face encounter with the patient. This chart was documented by the indicated scribe, (Ricky Gordillo, Lucy) and accurately reflects the services I performed and decisions made by me, Jones Epstein MD, as attested by the provider's signature.
[2019-05-18 16:29] LABS: ALLEN TEST YES; BE 1.1 mmoll (-3.0-3.0); BLOOD TYPE ARTERIAL; HCO3-(ACT) 25.6 mmoll (20.0-26.0); METHB 1.3 % (0.0-1.5); O2(CT) 12.1 mL/dL (15.0-23.0); PO2(98.6) 87 mmHg (60-100); SAMPLE BLOOD; SAO2 97.3 % (95.0-100.0); THB 9.7 g/dL (11.5-17.4)
[2019-05-18 16:41] LABS: MODALITY BI PAP; O2HB 87.5 % (95.0-99.0); PCO2(98.6) 118 mmHg (35-45); pH(98.6) 7.06 (7.35-7.45)
[2019-05-18 16:49] LABS: URINE SOURCE CATH
[2019-05-18 16:54] LABS: BILIRUBIN URINE NEGATIVE (NEGATIVE); BLOOD URINE NEGATIVE (NEGATIVE); COLOR YELLOW; GLUCOSE URINE NEGATIVE (NEGATIVE); KETONE URINE NEGATIVE (NEGATIVE); LEUKOCYTES URINE NEGATIVE (NEGATIVE); NITRITE URINE NEGATIVE (NEGATIVE); PROTEIN URINE 50 mg/dL (NEGATIVE); SP GRAVITY URINE 1.027; TURBIDITY URINE CLEAR (CLEAR); UROBILINOGEN URINE NORMAL (NORMAL)
[2019-05-18 16:55] LABS: UR EPITHELIAL CELLS <10 /HPF (<10); URINE BACTERIA NEGATIVE /HPF; URINE RBC <10 /HPF (<10); URINE WBC <10 /HPF (<10)
[2019-05-18] MEDS ORDERED: NS 1,000 ML ONE (16:58)
[2019-05-18 17:06] LABS: UR AMPHETAMINES QUAL NONE DETECTED (NONE DETECT); UR BARBITUATES QUAL NONE DETECTED (NONE DETECT); UR BENZODIAZEPIN QUAL NONE DETECTED (NONE DETECT); UR CANNABINOIDS QUAL NONE DETECTED (NONE DETECT); UR COCAINE QUAL NONE DETECTED (NONE DETECT); UR METHADONE QUAL NONE DETECTED (NONE DETECT); UR OPIATES QUAL PRESUMPTIVE POSITIVE (NONE DETECT); UR OXYCODONE QUAL PRESUMPTIVE POSITIVE (NONE DETECT); UR PCP QUAL NONE DETECTED (NONE DETECT)
[2019-05-18] MEDS ORDERED: DIPRIVAN 1% ONE (17:09)
[2019-05-18] MEDS ORDERED: QUELICIN (DOSE) ONE (17:09)
[2019-05-18] MEDS: DIPRIVAN 1% 1,000 MG/100 ML BOTTLE IV SCH (17:16)
[2019-05-18] MEDS ORDERED: NS 1,000 ML IV SCH (17:30)
--- NOTE | 2019-05-18 17:31 | Diag Imaging Result Doc PS360 ---
EXAM: CHEST-PORTABLE 05/18/2019 HISTORY: POST INTUBATION TECHNIQUE: AP portable semiupright at 1721 COMMENT: There is an endotracheal tube with its tip at the thoracic inlet. There is a Port-A-Cath on the right with its tip in the right atrium. There is pleural thickening on the right and apparent loculated pleural fluid on the left. There is alveolar and interstitial opacity in both lower lung stokes particularly on the right side. Compared to 05/18/2019 at 1242 there has been no appreciable change. The pulmonary edema is definitely worse however than on 05/17/2019 and the volume of pleural fluid on the left has apparently increased. IMPRESSION: Pulmonary edema plus minus pneumonia. Increasing left pleural effusion. Electronically signed by Joaquin Vargas 05/18/2019 5:29 PM
[2019-05-18] MEDS ORDERED: VANCOMYCIN IV PER PHARMACY MISC SCH (18:49)
[2019-05-18] MEDS ORDERED: PERCOCET-10 PO PRN (18:49)
[2019-05-18] MEDS ORDERED: TYLENOL PO PRN (18:49)
[2019-05-18] MEDS ORDERED: ZOFRAN IV PRN (18:49)
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
[2019-05-18] MEDS ORDERED: VANCOMYCIN 1,200 MG in NS 250 ML IV ONE (21:00)
[2019-05-18] MEDS: FERROUS SULFATE PO SCH (21:19)
[2019-05-19] MEDS: MAXIPIME 1 GM in NS 50 ML IV SCH ×2 (01:59→14:32)
[2019-05-19] MEDS ORDERED: LASIX IV SCH (02:00)
[2019-05-19] MEDS: DIPRIVAN 1% 1,000 MG/100 ML BOTTLE IV SCH ×6 (03:51→21:56)
[2019-05-19 04:52] LABS: ALLEN TEST YES; BE 10.4 mmoll (-3.0-3.0); BLOOD TYPE ARTERIAL; HCO3-(ACT) 33.1 mmoll (20.0-26.0); METHB 0.1 % (0.0-1.5); O2(CT) 13.8 mL/dL (15.0-23.0); O2HB 96.9 % (95.0-99.0); PCO2(98.6) 42 mmHg (35-45); PO2(98.6) 202 mmHg (60-100); SAMPLE BLOOD; SAO2 100.5 % (95.0-100.0); SRATE 20 BPM; THB 9.8 g/dL (11.5-17.4); TVOL 500 mL; pH(98.6) 7.52 (7.35-7.45)
[2019-05-19 04:53] LABS: MODALITY VENTILATOR
[2019-05-19 05:43] LABS: AGAP 10; BUN 21 mg/dL (8-22); CALCIUM 8.2 mg/dL (8.8-10.2); CHLORIDE 90 mmol/L (98-107); COSMO 268; CREATININE 0.4 mg/dL (0.7-1.2); ESTIMATED GFR > 60; GLUCOSE 135 mg/dL (70-104); POTASSIUM 4.4 mmol/L (3.5-5.1); SODIUM 131 mmol/L (136-145); TCO2 31 mmol/L (25-35)
[2019-05-19 06:36] LABS: BASO# 0.02 X1000 (0.0-0.2); BASO% 0.2 % (0.0-0.8); HEMATOCRIT 26.1 % (42.0-52.0); HEMOGLOBIN 7.8 g/dL (14.0-18.0); IMM GRAN# 0.25 X1000 (0.0-0.04); IMM GRAN% 2.2 % (0.0-0.5); MCHC 29.9 g/dL (33-37); MCV 93.5 FL (81-99); MONO# 1.21 X1000 (0.11-0.59); MONO% 10.8 % (1.7-9.3); MPV 11.9 FL (7.4-10.4); NEUT# 8.81 X1000 (1.4-6.5); NEUT% 78.8 % (42.2-75.2); PLT 161 X1000 (130-400); RBC 2.79 XMIL (4.7-6.1); RDW 22.9 % (11.5-14.5); WBC 11.19 X1000 (4.8-10.8)
[2019-05-19 06:45] LABS: LYMPHS 9 % (21-51); MONO 8 % (1-9); SEGS 83 % (42-75)
--- NOTE | 2019-05-19 07:23 | Diag Imaging Result Doc PS360 ---
EXAM: CHEST-PORTABLE 05/19/2019 HISTORY: NG/OG tube placement verification TECHNIQUE: AP portable semiupright at 0549 COMMENT: There is pleural thickening versus loculated fluid on the right and particularly on the left. There is interstitial and alveolar opacity bilaterally. This has clearly improved since 05/18/2019. There is an endotracheal tube with its tip slightly below the thoracic inlet and an NG tube with its tip in the fundus of the stomach. There is a Port-A-Cath on the right. IMPRESSION: Improved pulmonary edema. Bilateral pleural fluid collections plus minus pleural thickening. Electronically signed by Joaquin Vargas 05/19/2019 7:21 AM
[2019-05-19] MEDS ORDERED: VENTOLIN HFA INH PRN (09:00)
--- NOTE | 2019-05-19 09:06 | PROVIDER PROGRESS NOTE ---
Progress Note Pulmonary additional note: Case called to my office. EMR reviewed and orders done. Full Consult to follow. Respiratory failure, CHF, Narcosis is possible. Improving with Bipap and current treatment.
[2019-05-19] MEDS: FERROUS SULFATE PO SCH ×2 (09:10→20:12)
[2019-05-19] MEDS: VANCOMYCIN 1,800 MG in NS 250 ML IV SCH ×2 (09:10→20:12)
[2019-05-19] MEDS: VILANTER inhalation SCH (09:51)
[2019-05-19] MEDS: UMECLIDIN inhalation SCH (09:51)
[2019-05-19] MEDS: FLUTICASONE inhalation SCH (09:51)
[2019-05-19] MEDS ORDERED: DUONEB (A & A) INH PRN (11:34)
[2019-05-19] MEDS: DUONEB (A & A) INH SCH ×4 (11:47→22:51)
--- NOTE | 2019-05-19 14:26 | PROGRESS NOTE ---
DATE: 05/19/2019 SUBJECTIVE: Patient is intubated and sedated. OBJECTIVE: Blood pressure is 105/71, heart rate 78, respiratory rate 20, temperature 97.7 degrees, T-max note no temperature. I's and O's, he is about 1.7 L negative, 557 and 2295 out on Lasix.Cardiovascular: Regular rate and rhythm. Pulmonary: Bilateral breath sounds clear to auscultation. Occasional rhonchi. GI: Soft, nontender, nondistended. Bowel sounds are positive. LABORATORY DATA: White count 11, hemoglobin and hematocrit have dropped to 7.8 and 26, platelets of 161,000. PH is up to 7.52, pCO2 42, PaO2 202. Sodium 131. PROBLEM LIST: 1. Acute hypercapnic and hypoxic respiratory failure due to possible anaphylactic response from rituximab versus flash pulmonary edema versus multilobar pneumonia. He is on the ventilator, but we are able to wean him because he seems like he is doing pretty well and will see how he does. 2. Pulmonary edema. We will continue diuretics and follow. I am going to decrease them a little bit. He is diuresing pretty well. I do not want to cause any kidney issues. 3. Possible multilobar pneumonia. He is on cefepime and vancomycin. We will continue to monitor. 4. Diffuse B-cell lymphoma. Aware of diagnosis. We have consulted Heme-Onc. We will continue to follow. 5. Possible CHF/pulmonary edema. We will continue diuretics. Echo is pending but has been completed. DISPOSITION: Pending clinical status. At this point, I think there has been yoav discussions from Oncology. The told me that if he is not responding that they would have to consider hospice at discharge pending if he does not improve overall. We will continue to follow closely. cc: Andrez Esposito MD
[2019-05-19] MEDS: LASIX IV SCH (14:32)
[2019-05-19] MEDS: PROTONIX IV SCH (14:32)
[2019-05-19] MEDS: SODIUM CHLORIDE 0.9% INJ SCH (14:32)
[2019-05-19] MEDS: MORPHINE IV PRN (20:12)
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
[2019-05-20] MEDS: MORPHINE IV PRN ×6 (00:18→21:59)
[2019-05-20] MEDS: LASIX IV SCH ×2 (01:34→12:18)
[2019-05-20] MEDS: MAXIPIME 1 GM in NS 50 ML IV SCH ×2 (01:35→14:10)
[2019-05-20] MEDS: DUONEB (A & A) INH SCH ×6 (03:14→23:03)
[2019-05-20 04:45] LABS: ALLEN TEST YES; BE 11.9 mmoll (-3.0-3.0); BLOOD TYPE ARTERIAL; HCO3-(ACT) 34.2 mmoll (20.0-26.0); METHB 1.1 % (0.0-1.5); O2(CT) 12.4 mL/dL (15.0-23.0); O2HB 95.5 % (95.0-99.0); PCO2(98.6) 48 mmHg (35-45); PO2(98.6) 134 mmHg (60-100); SAMPLE BLOOD; SAO2 99.3 % (95.0-100.0); SRATE 20 BPM; TVOL 500 mL; pH(98.6) 7.49 (7.35-7.45)
[2019-05-20 04:46] LABS: MODALITY VENTILATOR
[2019-05-20] MEDS: DIPRIVAN 1% 1,000 MG/100 ML BOTTLE IV SCH ×3 (05:16→11:41)
[2019-05-20 05:34] LABS: BASO# 0.01 X1000 (0.0-0.2); EOS# 0.46 X1000 (0.0-0.7); EOS% 1.6 % (0.0-10.0); HEMATOCRIT 26.1 % (42.0-52.0); HEMOGLOBIN 7.7 g/dL (14.0-18.0); IMM GRAN# 0.13 X1000 (0.0-0.04); IMM GRAN% 0.5 % (0.0-0.5); LYMPH# 0.77 X1000 (1.2-3.4); LYMPH% 2.7 % (20.5-51.1); MCH 27.7 PG (27-31); MCHC 29.5 g/dL (33-37); MCV 93.9 FL (81-99); MONO# 1.15 X1000 (0.11-0.59); MPV 11.5 FL (7.4-10.4); NEUT# 26.17 X1000 (1.4-6.5); NEUT% 91.2 % (42.2-75.2); PLT 160 X1000 (130-400); RBC 2.78 XMIL (4.7-6.1); RDW 23.9 % (11.5-14.5); WBC 28.69 X1000 (4.8-10.8)
[2019-05-20] MEDS: LOVENOX SUBQ SCH (06:06)
[2019-05-20 06:07] LABS: AGAP 9; BUN 19 mg/dL (8-22); CALCIUM 8.3 mg/dL (8.8-10.2); CHLORIDE 92 mmol/L (98-107); COSMO 270; CREATININE 0.5 mg/dL (0.7-1.2); ESTIMATED GFR > 60; GLUCOSE 92 mg/dL (70-104); POTASSIUM 3.3 mmol/L (3.5-5.1); SODIUM 134 mmol/L (136-145); TCO2 33 mmol/L (25-35)
[2019-05-20] MEDS: ATIVAN PO PRN ×2 (06:33→11:07)
[2019-05-20 07:05] LABS: ANISOCYTOSIS 1+; BANDS 8 % (0-1); LARGE PLATELETS 1+; LYMPHS 6 % (21-51); MONO 2 % (1-9); SEGS 82 % (42-75)
--- NOTE | 2019-05-20 07:24 | Diag Imaging Result Doc PS360 ---
EXAM: CHEST-1 VIEW 05/20/2019 HISTORY: SOB TECHNIQUE: AP portable at 0526 COMMENT: There is an endotracheal tube with its tip slightly below the thoracic inlet and an NG tube which passes into the fundus of the stomach. There are bilateral pleural effusions with possible loculation and pleural thickening on the right. There is hazy pulmonary edema in both lung bases. This appears slightly worse than on 05/19/2019. IMPRESSION: Worsened pulmonary edema. Electronically signed by Joaquin Vargas 05/20/2019 7:22 AM
[2019-05-20] MEDS: FERROUS SULFATE PO SCH ×2 (08:36→20:09)
[2019-05-20] MEDS: VANCOMYCIN 1,800 MG in NS 250 ML IV SCH ×2 (08:37→21:50)
--- NOTE | 2019-05-20 08:52 | ECHO REPORT ---
ORDER DATE: 05/18/2019 MEASUREMENTS: Septal thickness 1.1. Left ventricular internal diameter end diastole 5.7. Posterior wall thickness 1.1. Left ventricular internal diameter end systole 3.9. Left atrium 3.9. Aortic root 4.0. SUMMARY: 1. Adequate quality study. 2. The aortic valve is trileaflet and opens normally on 2-dimensional images. The peak gradient across the aortic valve is approximately 10 mmHg. There is trace aortic regurgitation. Mitral, tricuspid and pulmonic valves are without evidence of structural abnormality with very mild mitral regurgitation, mild tricuspid regurgitation, and mild pulmonic insufficiency. The estimated systolic PA pressure by Doppler is 50 mmHg suggesting moderate pulmonary hypertension. The aortic root is mildly enlarged. 3. Normal left ventricular dimension is demonstrated. The estimated left ventricular ejection fraction is approximately 55%. No regional wall motion abnormality is evident. Doppler suggests grade 1 left ventricular diastolic dysfunction. The left atrium is upper normal in size. The right atrium and right ventricle are grossly normal in size. 4. No pericardial effusion. 5. Appearance of inferior vena cava suggests elevated central venous pressure. cc: MD Radhika Cazares CRNP
[2019-05-20] MEDS: VILANTER inhalation SCH (11:06)
[2019-05-20] MEDS: FLUTICASONE inhalation SCH (11:06)
[2019-05-20] MEDS: UMECLIDIN inhalation SCH (11:06)
[2019-05-20 11:36] LABS: ALLEN TEST YES; BE 9.1 mmoll (-3.0-3.0); BLOOD TYPE ARTERIAL; HCO3-(ACT) 31.9 mmoll (20.0-26.0); METHB 0.8 % (0.0-1.5); O2(CT) 19.8 mL/dL (15.0-23.0); O2HB 94.9 % (95.0-99.0); PO2(98.6) 104 mmHg (60-100); SAMPLE BLOOD; SAO2 98.8 % (95.0-100.0); THB 14.8 g/dL (11.5-17.4); pH(98.6) 7.42 (7.35-7.45)
[2019-05-20 11:39] LABS: MODALITY VENTILATOR
[2019-05-20 11:40] LABS: PCO2(98.6) 55 mmHg (35-45)
[2019-05-20] MEDS: POTASSIUM CHLORIDE 20 MEQ/SWI 20 MEQ/100 ML IVPB IV SCH ×2 (12:16→15:33)
[2019-05-20] MEDS: SODIUM CHLORIDE 0.9% INJ SCH (14:10)
[2019-05-20] MEDS: PROTONIX IV SCH (14:10)
--- NOTE | 2019-05-20 14:20 | PROGRESS NOTE ---
DATE: 05/20/2019 SUBJECTIVE: Patient has no major complaints. He is awake, alert. He is not having any difficulty breathing. He is on a spontaneous breathing trial right now, seems to be doing fine. Heart rate 94, respiratory rate 21, temperature was afebrile I believe 99.3, saturations of 95 on 40%. Cardiovascular: Regular rate and rhythm. Pulmonary: Bilateral breath sounds clear to auscultation. GI: Was soft, nontender, nondistended. Bowel sounds are positive. LABORATORY DATA: White count is 28 has bumped up, hemoglobin and hematocrit 7 and 26, platelets 160,000, pH 7.42, pCO2 55, PaO2 104. Potassium is 3.3. PROBLEM LIST: 1. Acute hypercapnic hypoxic respiratory failure due to pneumonia and pulmonary edema, possibly associated with an allergic response. He is weaning well off the ventilator. We will continue to monitor. Anticipate possible extubation today per Pulmonary. 2. Pulmonary edema. He is less negative today was 1700 yesterday, 654 today. I am going to go back up on his Lasix just encourage more diuresis and follow. 3. Multilobar pneumonia by report anyway. This will be day 2 of vancomycin and day 2 of cefepime, we do not have any culture data at this point. 4. 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 I am not sure if the leukocytosis is related to that. He did get Rituxan which he has gotten before although this apparently was at a higher dose. We will need to discuss with them about future usage. If he is having any issues here may be diastolic dysfunction. DISPOSITION: Hopefully extubation today, probably go to the floor tomorrow. cc: Andrez Esposito MD
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
[2019-05-21] MEDS: LASIX IV SCH ×3 (02:04→23:20)
[2019-05-21] MEDS: MORPHINE IV PRN ×6 (02:05→22:56)
[2019-05-21] MEDS: MAXIPIME 1 GM in NS 50 ML IV SCH ×2 (02:13→14:24)
[2019-05-21] MEDS: DUONEB (A & A) INH SCH ×6 (03:50→22:58)
[2019-05-21 04:38] LABS: ALLEN TEST YES; BE 13.4 mmoll (-3.0-3.0); BLOOD TYPE ARTERIAL; HCO3-(ACT) 35.3 mmoll (20.0-26.0); METHB 1.3 % (0.0-1.5); O2(CT) 12.2 mL/dL (15.0-23.0); PO2(98.6) 90 mmHg (60-100); SAMPLE BLOOD; SAO2 98.1 % (95.0-100.0); THB 9.2 g/dL (11.5-17.4); pH(98.6) 7.44 (7.35-7.45)
[2019-05-21 04:40] LABS: MODALITY COOL AEROSOL; PCO2(98.6) 58 mmHg (35-45)
[2019-05-21 05:12] LABS: BASO# 0.02 X1000 (0.0-0.2); BASO% 0.1 % (0.0-0.8); EOS% 3.7 % (0.0-10.0); HEMATOCRIT 25.4 % (42.0-52.0); HEMOGLOBIN 7.4 g/dL (14.0-18.0); IMM GRAN# 0.04 X1000 (0.0-0.04); IMM GRAN% 0.3 % (0.0-0.5); LYMPH# 0.79 X1000 (1.2-3.4); LYMPH% 5.9 % (20.5-51.1); MCH 27.8 PG (27-31); MCHC 29.1 g/dL (33-37); MCV 95.5 FL (81-99); MONO# 1.22 X1000 (0.11-0.59); MONO% 9.1 % (1.7-9.3); MPV 11.4 FL (7.4-10.4); NEUT# 10.78 X1000 (1.4-6.5); NEUT% 80.9 % (42.2-75.2); PLT 139 X1000 (130-400); RBC 2.66 XMIL (4.7-6.1); RDW 23.2 % (11.5-14.5); WBC 13.35 X1000 (4.8-10.8)
[2019-05-21 05:50] LABS: AGAP 12; BUN 11 mg/dL (8-22); CALCIUM 7.7 mg/dL (8.8-10.2); CHLORIDE 90 mmol/L (98-107); COSMO 275; CREATININE 0.3 mg/dL (0.7-1.2); ESTIMATED GFR > 60; GLUCOSE 165 mg/dL (70-104); POTASSIUM 2.7 mmol/L (3.5-5.1); SODIUM 136 mmol/L (136-145); TCO2 34 mmol/L (25-35)
[2019-05-21] MEDS: LOVENOX SUBQ SCH (06:11)
--- NOTE | 2019-05-21 07:09 | Diag Imaging Result Doc PS360 ---
EXAM: CHEST-1 VIEW HISTORY: SOB TECHNIQUE: Single view COMPARISON: 05/20/2019 FINDINGS: The endotracheal and nasogastric tubes have been removed. No change in the right jugular line. There is a moderate-sized left pleural effusion with a small right pleural effusion. There are bibasilar infiltrates and atelectasis. IMPRESSION: Slight interval improvement Electronically signed by Yaakov Whitlock 05/21/2019 7:07 AM
[2019-05-21] MEDS: UMECLIDIN inhalation SCH (07:30)
[2019-05-21] MEDS: FLUTICASONE inhalation SCH (07:30)
[2019-05-21] MEDS: VILANTER inhalation SCH (07:30)
[2019-05-21] MEDS: KLOR-CON POWDER PACKET PO SCH ×2 (08:38→12:55)
[2019-05-21] MEDS: FERROUS SULFATE PO SCH ×2 (08:38→20:14)
[2019-05-21] MEDS: VANCOMYCIN 1,800 MG in NS 250 ML IV SCH ×2 (10:43→20:14)
[2019-05-21] MEDS ORDERED: BENADRYL PO ONE (10:44)
[2019-05-21] MEDS ORDERED: TYLENOL PO ONE (10:44)
[2019-05-21] MEDS ORDERED: NS 500 ML IV ONE (10:44)
[2019-05-21] MEDS: PROTONIX IV SCH (14:25)
[2019-05-21] MEDS: ALBUMIN 25% IV SCH (16:54)
[2019-05-21] MEDS: ATIVAN PO PRN ×2 (17:31→22:56)
--- NOTE | 2019-05-21 20:03 | Diag Imaging Result Doc PS360 ---
EXAM: US SCROTUM HISTORY: swelling TECHNIQUE: Scrotal ultrasound COMPARISON: None. FINDINGS: Normal size and echotexture to each testicle. No testicular mass. Blood flow is documented to both testicles. No prominent hydroceles. Neither epididymis is enlarged. Questionable small left varicocele. IMPRESSION: No definite abnormality. Electronically signed by Yaakov Whitlock 05/21/2019 8:00 PM
--- NOTE | 2019-05-21 21:09 | PROGRESS NOTE ---
DATE: 05/21/2019 SUBJECTIVE: The patient has no complaints, except he wants to eat regular food. He is doing better. OBJECTIVE: Blood pressure is 103/64, heart rate 89, respiratory rate of 12, temperature was 98 degrees, was afebrile overnight.Cardiovascular: Regular rate and rhythm. Pulmonary: Bilateral breath sounds, clear to auscultation. GI: Soft, nontender, nondistended. Bowel sounds are positive. LABORATORY DATA: White count 13, hemoglobin and hematocrit 7 and 25, platelets 139,000. PH 7.44, pCO2 is 58, PaO2 is 90. Lactate is still up a little bit, 2.5. Potassium 3.4. ASSESSMENT AND PLAN: 1. Acute hypercapnic hypoxic respiratory failure. We will continue current measures. Wean oxygen. He has been extubated. Pulmonary is following. 2. Pulmonary edema, secondary to I think just a low protein state. His echocardiogram looked okay, 55% ejection fraction. He does some have some diastolic dysfunction, but I really think this is probably due to low protein. His albumin level was 2.9. That is when he came in. We will check a prealbumin level tomorrow. 3. Severe protein-calorie malnutrition, leading to anasarca and scrotal edema. We will continue diuretics. I am going to give him some albumin today. He has significant scrotal edema, but I think it is related to just hypoalbuminemia. 4. Possible multifocal pneumonia. We will continue treatment. He is on vancomycin and cefepime. We will continue to monitor closely. Days of treatment are as follows: The vancomycin is 3 days, cefepime is 3 days. 5. Disposition: I think he is probably safe to go to stepdown. We will continue diuretics and follow. 6. Hypokalemia. We will supplement and monitor. He was about 4 L negative yesterday, and that is total; 1200 yesterday. We will continue treatment and follow. 7. Disposition pending clinical status. 8. Anemia, which may be progressive due to other issues, but we will give him 1 unit of blood and see how he does. cc: Andrez Esposito MD
[2019-05-22] MEDS: MORPHINE IV PRN ×6 (02:57→22:57)
[2019-05-22] MEDS: MAXIPIME 1 GM in NS 50 ML IV SCH (02:57)
[2019-05-22] MEDS: DUONEB (A & A) INH SCH ×3 (03:38→11:29)
[2019-05-22 04:24] LABS: ALLEN TEST YES; BE 18.1 mmoll (-3.0-3.0); BLOOD TYPE ARTERIAL; METHB 0.9 % (0.0-1.5); MODALITY CANNULA; O2(CT) 11.1 mL/dL (15.0-23.0); O2HB 94.1 % (95.0-99.0); PCO2(98.6) 54 mmHg (35-45); PO2(98.6) 87 mmHg (60-100); SAMPLE BLOOD; SAO2 98.8 % (95.0-100.0); THB 8.3 g/dL (11.5-17.4); pH(98.6) 7.51 (7.35-7.45)
[2019-05-22] MEDS: ALBUMIN 25% IV SCH (04:24)
[2019-05-22 05:31] LABS: AGAP 10; BUN 14 mg/dL (8-22); CALCIUM 7.7 mg/dL (8.8-10.2); CHLORIDE 90 mmol/L (98-107); COSMO 273; CREATININE 0.3 mg/dL (0.7-1.2); ESTIMATED GFR > 60; GLUCOSE 106 mg/dL (70-104); POTASSIUM 3.3 mmol/L (3.5-5.1); SODIUM 136 mmol/L (136-145); TCO2 36 mmol/L (25-35)
[2019-05-22] MEDS: PRILOSEC PO SCH ×2 (05:45→06:09)
[2019-05-22] MEDS: ATIVAN PO PRN ×3 (05:45→20:53)
[2019-05-22] MEDS: LOVENOX SUBQ SCH (05:46)
[2019-05-22 06:21] LABS: BASO# 0.02 X1000 (0.0-0.2); BASO% 0.1 % (0.0-0.8); HEMATOCRIT 26.7 % (42.0-52.0); HEMOGLOBIN 7.8 g/dL (14.0-18.0); LYMPH# 1.03 X1000 (1.2-3.4); LYMPH% 7.1 % (20.5-51.1); MCH 27.8 PG (27-31); MCHC 29.2 g/dL (33-37); MONO# 1.39 X1000 (0.11-0.59); MONO% 9.6 % (1.7-9.3); MPV 11.3 FL (7.4-10.4); PLT 131 X1000 (130-400); RBC 2.81 XMIL (4.7-6.1); WBC 14.42 X1000 (4.8-10.8)
[2019-05-22] MEDS ORDERED: POTASSIUM CHLORIDE 20% LIQUID PO ONE (06:35)
--- NOTE | 2019-05-22 07:51 | Diag Imaging Result Doc PS360 ---
EXAM: CHEST-1 VIEW INDICATION: SOB TECHNIQUE: One view COMPARISON: 05/21/2019 FINDINGS: The right chest port is in stable position. Bilateral pleural effusions, larger on the left is stable. There is stable interstitial and airspace infiltrates with a basilar predominance most compatible with pulmonary edema +/- pneumonia. No new consolidation is identified. Cardiac silhouette is stable. IMPRESSION: Stable chest. Electronically signed by Nam Martinez 05/22/2019 7:49 AM
[2019-05-22 08:17] LABS: ANISOCYTOSIS 1+; EOS 6 % (1-10); HYPOCHROM 1+; LYMPHS 8 % (21-51); MONO 4 % (1-9); SEGS 82 % (42-75)
[2019-05-22] MEDS: FERROUS SULFATE PO SCH ×2 (09:04→20:53)
[2019-05-22] MEDS: FLUTICASONE inhalation SCH (09:04)
[2019-05-22] MEDS: VILANTER inhalation SCH (09:04)
[2019-05-22] MEDS: UMECLIDIN inhalation SCH (09:04)
[2019-05-22] MEDS: VANCOMYCIN 1,800 MG in NS 250 ML IV SCH (09:04)
[2019-05-22] MEDS: LASIX IV SCH ×3 (11:08→21:39)
[2019-05-22] MEDS: LOPRESSOR PO SCH ×2 (13:09→20:53)
[2019-05-22] MEDS: MAXIPIME 2 GM/NS 2 GM/100 ML IVPB IV SCH (13:38)
--- NOTE | 2019-05-22 14:21 | PROGRESS NOTE ---
DATE: 05/22/2019 SUBJECTIVE: The patient has no major complaints. OBJECTIVE: Blood pressure is 112/69, heart rate of 119, respiratory rate of 33, temp 99.1 degrees. Cardiovascular regular rate and rhythm. 94% sat on 2 L. In's and out's: He has been 2204 in 3480 out negative about 1.2 L yesterday so still diuresing very well. PROBLEM LIST: 1. Acute hypercapnic hypoxic respiratory failure due to at this point, Pseudomonas pneumonia. He possibly had an allergic drug reaction to Rituxan with flash pulmonary edema. He is off the ventilator. He is on 2 L. He seems to be doing okay. 2. Flash pulmonary edema. We will continue diuresis. Echo looks normal. He does have some diastolic dysfunction, but I do not think that is what triggered the event. He either had pneumonia or a reaction. 3. Severe protein-calorie malnutrition. We will continue diuretics. Increase protein intake and follow. 4. Pseudomonas pneumonia. I am going to put him on cefepime alone. This will be day 4 and increase the dose to 2 g IV q.12. 5. Hypokalemia. We will supplement and follow. 6. Anemia is slightly improved after transfusion, although so so. We will continue to monitor. I think he is stable for step-down. We will go ahead and work on transfer. cc: Andrez Esposito MD
[2019-05-22] MEDS: ATROVENT NEB INH SCH ×2 (16:16→21:30)
[2019-05-22] MEDS: XOPENEX NEB INH SCH ×2 (16:17→21:40)
[2019-05-22] MEDS: AMBIEN PO SCH (20:53)
[2019-05-23] MEDS: MAXIPIME 2 GM/NS 2 GM/100 ML IVPB IV SCH ×2 (02:17→14:22)
[2019-05-23] MEDS: MORPHINE IV PRN ×6 (02:50→23:05)
[2019-05-23] MEDS: PRILOSEC PO SCH ×2 (05:04→06:19)
[2019-05-23] MEDS: ATIVAN PO PRN ×3 (05:04→23:59)
[2019-05-23] MEDS: LOVENOX SUBQ SCH (05:04)
[2019-05-23 05:21] LABS: ALLEN TEST YES; BE 18.5 mmoll (-3.0-3.0); BLOOD TYPE ARTERIAL; HCO3-(ACT) 39.3 mmoll (20.0-26.0); METHB 0.9 % (0.0-1.5); O2(CT) 10.5 mL/dL (15.0-23.0); O2HB 91.4 % (95.0-99.0); PO2(98.6) 59 mmHg (60-100); SAMPLE BLOOD; SAO2 95.5 % (95.0-100.0); THB 8.1 g/dL (11.5-17.4); pH(98.6) 7.52 (7.35-7.45)
[2019-05-23 05:30] LABS: MODALITY CANNULA; PCO2(98.6) 53 mmHg (35-45)
[2019-05-23 06:47] LABS: BASO# 0.03 X1000 (0.0-0.2); BASO% 0.2 % (0.0-0.8); EOS# 0.69 X1000 (0.0-0.7); EOS% 4.8 % (0.0-10.0); HEMATOCRIT 29.4 % (42.0-52.0); HEMOGLOBIN 8.4 g/dL (14.0-18.0); IMM GRAN# 0.12 X1000 (0.0-0.04); IMM GRAN% 0.8 % (0.0-0.5); LYMPH# 1.13 X1000 (1.2-3.4); LYMPH% 7.8 % (20.5-51.1); MCH 27.5 PG (27-31); MCHC 28.6 g/dL (33-37); MCV 96.4 FL (81-99); MONO# 1.61 X1000 (0.11-0.59); MONO% 11.2 % (1.7-9.3); MPV 11.5 FL (7.4-10.4); NEUT# 10.83 X1000 (1.4-6.5); NEUT% 75.2 % (42.2-75.2); PLT 163 X1000 (130-400); RBC 3.05 XMIL (4.7-6.1); RDW 21.4 % (11.5-14.5); WBC 14.41 X1000 (4.8-10.8)
[2019-05-23 07:34] LABS: AGAP 10; BUN 12 mg/dL (8-22); CALCIUM 7.9 mg/dL (8.8-10.2); CHLORIDE 90 mmol/L (98-107); COSMO 276; CREATININE 0.3 mg/dL (0.7-1.2); ESTIMATED GFR > 60; GLUCOSE 102 mg/dL (70-104); POTASSIUM 3.4 mmol/L (3.5-5.1); SODIUM 138 mmol/L (136-145); TCO2 38 mmol/L (25-35)
--- NOTE | 2019-05-23 07:48 | Diag Imaging Result Doc PS360 ---
CHEST-1 VIEW - 05/23/2019 INDICATION: SOB COMPARISON: 05/22/2019 FINDINGS: Stable right chest port. Stable mild cardiomegaly and moderate pulmonary vascular congestion. Stable small right and moderate left pleural effusions. Stable bibasilar and central infiltrates, nonspecific. IMPRESSION: No change from prior. Electronically signed by Feliz Guerrero 05/23/2019 7:46 AM
[2019-05-23] MEDS: LOPRESSOR PO SCH ×2 (09:09→21:03)
[2019-05-23] MEDS: LASIX IV SCH ×2 (09:09→21:09)
[2019-05-23] MEDS: FERROUS SULFATE PO SCH ×2 (09:09→21:03)
[2019-05-23] MEDS: ATROVENT NEB INH SCH ×3 (09:21→21:16)
[2019-05-23] MEDS: XOPENEX NEB INH SCH ×3 (09:21→21:16)
[2019-05-23] MEDS: FLUTICASONE inhalation SCH (09:22)
[2019-05-23] MEDS: VILANTER inhalation SCH (09:22)
[2019-05-23] MEDS: UMECLIDIN inhalation SCH (09:22)
[2019-05-23] MEDS: KLOR-CON PO ONE ×2 (11:09→11:12)
[2019-05-23] MEDS ORDERED: POTASSIUM CHLORIDE 20% LIQUID PO ONE (12:00)
[2019-05-23] MEDS: PERCOCET-10 PO PRN ×3 (13:02→21:08)
--- NOTE | 2019-05-23 14:36 | PROGRESS NOTE ---
DATE: 05/23/2019 SUBJECTIVE: This patient is awake, alert, and oriented x3. He is complaining of chest pain, but the pain is upon palpation. It is quite severe, and he has requested to be placed on Percocet, which I did. We will try to keep this patient more comfortable. He agreed with that, as well as the , who is at the bedside. He was extubated a few days ago due to acute hypercarbic and hypoxemic respiratory failure. He has a positive sputum culture that showed Pseudomonas, but on the other hand, Hematology/Oncology Department has evaluated this patient, and they have recommended hospice, but there are no real treatment options for this patient, so I talked to him frankly, as well as the at the bedside. Palliative Care is on board already. We will try to contact hospice today to see if they can discuss the whole situation. He still wants to be full code. OBJECTIVE: Vital Signs: Temperature 99.3 degrees, pulse 108, respiratory rate 20, blood pressure 127/68, oxygen saturation 96 on 2 L of nasal cannula. HEENT: Head normocephalic. No trauma. Neck: Supple. No JVD. No masses. Central trachea. Chest: Bilateral rhonchi at the bases with some crepitus. Severe tenderness to palpation at the level of the chest, frontal area. Abdomen: Soft, nondistended. Extremities: There is 2+ to 3+ edema, mostly from the mid leg down to his feet. Neurological: This patient is awake and alert. He is oriented x3. LABORATORY DATA: WBC 14.4, hemoglobin 8.4, hematocrit 29.4, platelets 163,000. PCO2 of 53. Sodium 138, potassium 3.4, chloride 90, bicarbonate 38, BUN 12, creatinine 0.3, glucose 102, calcium 7.9. ASSESSMENT AND PLAN: 1. Acute hypercarbic and hypoxemic respiratory failure due to Pseudomonas pneumonia. Also, flash pulmonary edema, probably due to an allergic reaction to Rituxan. He was extubated a few days ago. He seems to be doing better. Will continue with the same management. 2. Flash pulmonary edema. Continue with diuresis. He has some diastolic dysfunction. It could be a reaction to one medication. 3. Severe protein calorie malnutrition. Continue with the same management, protein intake, and follow. 4. Pseudomonas pneumonia. Continue with cefepime. 5. Hypokalemia. I will replace it. 6. Anemia, stable. 7. Chronic obstructive pulmonary disease, not in exacerbation. 8. Relapsed refractory diffuse large B-cell lymphoma. The patient has been evaluated by Hematology/Oncology Department. They have recommended hospice for this patient as there are no real treatment options at this moment. I discussed this with the patient. He still wants to be full code, but he wants to talk to hospice. cc: Leroy Santoro MD
--- NOTE | 2019-05-23 19:04 | HEMO/ONC PROGRESS NOTE ---
DATE: 05/23/2019 BRIEF PROGRESS NOTE: Mr. Beltran is in the room currently and Dr. Post is at bedside. His is also there. They have decided that they would like to speak with hospice about hospice services. The patient seems to be doing better than when he was in the ICU. However, he has Pseudomonas pneumonia and in general just a decline overall. We would still support him proceeding with hospice if those are his wishes. Otherwise, we can certainly see him once he is discharged to discuss goals of care further if need be. We will be available over the and will be checking back in at least peripherally on the . Dictated by BEVERLY Hand for Pineda Tucker MD cc: Pineda Tucker MD
--- NOTE | 2019-05-23 20:33 | PULMONOLOGY PROGRESS NOTE ---
DATE: 05/23/2019 SUBJECTIVE: The patient is awake and alert. He reports he is feeling a little better. He has generalized weakness. OBJECTIVE: Vital Signs: The patient has been afebrile for the last 24 hours. Blood pressure 116/68, heart rate 108, respiratory rate 20, oxygen saturation 98% on 2 L per nasal cannula. HEENT: Pupils are equal and reactive. Oropharynx appears clear. Neck: Is supple. Chest: Reveals decreased breath sounds both bases, left greater than right. Cardiac exam: S1-S2. Abdomen: Is soft. Extremities: Without edema. LABORATORIES: Chest x-ray reveals volume loss with consolidation at the left base with effusion/consolidation at the right base as well. White blood count 14,000, hemoglobin 8.4, platelet count 163,000. Arterial blood gas on 2 L per nasal cannula, pH 7.52, pCO2 of 53, PO2 of 59. IMPRESSION: A 49-year-old with 1. Chronic obstructive pulmonary disease. 2. Hypoxemic and hypercapnic respiratory failure. 3. Pseudomonal pneumonia. 4. Refractory diffuse large B-cell lymphoma, which has relapsed. PLAN: 1. Continue oxygen for hypoxemic respiratory failure. 2. Continue cefepime for Pseudomonas pneumonia. 3. Agree with hospice consult. The oncology note indicates hospice is recommended at this juncture due to his refractory lymphoma. cc: Chad Urena MD
[2019-05-23] MEDS: AMBIEN PO SCH (21:03)
[2019-05-24] MEDS: MAXIPIME 2 GM/NS 2 GM/100 ML IVPB IV SCH ×2 (01:27→13:33)
[2019-05-24] MEDS: PERCOCET-10 PO PRN ×6 (01:27→22:24)
[2019-05-24] MEDS: MORPHINE IV PRN ×5 (03:43→20:25)
[2019-05-24] MEDS: LOVENOX SUBQ SCH (05:38)
[2019-05-24] MEDS: PRILOSEC PO SCH (06:29)
[2019-05-24 06:42] LABS: AGAP 7; BUN 12 mg/dL (8-22); CHLORIDE 92 mmol/L (98-107); COSMO 277; CREATININE 0.2 mg/dL (0.7-1.2); ESTIMATED GFR > 60; GLUCOSE 85 mg/dL (70-104); POTASSIUM 3.7 mmol/L (3.5-5.1); SODIUM 139 mmol/L (136-145); TCO2 40 mmol/L (25-35)
[2019-05-24 06:52] LABS: BASO# 0.04 X1000 (0.0-0.2); BASO% 0.3 % (0.0-0.8); EOS# 0.67 X1000 (0.0-0.7); EOS% 5.3 % (0.0-10.0); HEMATOCRIT 27.3 % (42.0-52.0); HEMOGLOBIN 7.7 g/dL (14.0-18.0); IMM GRAN# 0.09 X1000 (0.0-0.04); IMM GRAN% 0.7 % (0.0-0.5); LYMPH# 1.67 X1000 (1.2-3.4); LYMPH% 13.3 % (20.5-51.1); MCH 27.7 PG (27-31); MCHC 28.2 g/dL (33-37); MCV 98.2 FL (81-99); MONO# 1.71 X1000 (0.11-0.59); MONO% 13.6 % (1.7-9.3); MPV 11.2 FL (7.4-10.4); NEUT# 8.35 X1000 (1.4-6.5); NEUT% 66.8 % (42.2-75.2); PLT 191 X1000 (130-400); RBC 2.78 XMIL (4.7-6.1); RDW 20.7 % (11.5-14.5); WBC 12.53 X1000 (4.8-10.8)
[2019-05-24] MEDS: FERROUS SULFATE PO SCH ×3 (07:34→20:25)
[2019-05-24] MEDS: LOPRESSOR PO SCH ×3 (07:34→20:25)
--- NOTE | 2019-05-24 09:23 | Diag Imaging Result Doc PS360 ---
CHEST-1 VIEW - 05/24/2019 INDICATION: SOB COMPARISON: 05/23/2019 FINDINGS: Stable right chest port. Lungs are better expanded. Otherwise stable extensive bilateral infiltrates. Stable moderate left basilar pleural effusion. There is a grossly stable trace right pleural effusion as well. Stable cardiomegaly and pulmonary vascular congestion. IMPRESSION: Improved expansion of the lungs but otherwise little change from prior. Electronically signed by Feliz Guerrero 05/24/2019 9:21 AM
[2019-05-24] MEDS: LASIX IV SCH ×2 (09:32→22:29)
[2019-05-24] MEDS: UMECLIDIN inhalation SCH (10:28)
[2019-05-24] MEDS: VILANTER inhalation SCH (10:28)
[2019-05-24] MEDS: FLUTICASONE inhalation SCH (10:28)
[2019-05-24] MEDS: XOPENEX NEB INH SCH ×3 (10:29→21:55)
[2019-05-24] MEDS: ATROVENT NEB INH SCH ×3 (10:29→21:55)
[2019-05-24] MEDS: ATIVAN PO PRN (11:47)
--- NOTE | 2019-05-24 15:58 | PROGRESS NOTE ---
DATE: 05/24/2019 SUBJECTIVE: This patient is awake, alert, and he is oriented x3. His is better controlled. I had a discussion today again with this patient about hospice and they agree with that, but they want to discuss this in 1 or 2 days once he is feeling much better. He has been admitted due to respiratory failure and pseudomonal pneumonia. I think he is getting better, but x-ray showed little change from the previous 1, we will continue with same management for now. OBJECTIVE: HEENT: Head normocephalic, no trauma. PERRLA. Neck: Supple. No JVD. No masses. Central trachea. Respiratory: Bilateral rhonchi at the bases with some crepitus. Decreased breath sounds on the left base with crackles, he has some tenderness to palpation at the level of the chest area, the frontal area. Abdomen: Soft, nondistended. Positive bowel sounds. Extremities: 2 to 3+ edema mostly from the mid leg down to his feet. Neurological: Examination patient is awake, alert, and oriented x3. No focal deficits but generalized weakness. LABORATORY: WBC 12.5, hemoglobin 7.7, hematocrit 27.3, platelets 191,000. Sodium 139, potassium 3.7, chloride 92, bicarbonate 40, BUN 12, creatinine 0.2, glucose 85, calcium 8. ASSESSMENT AND PLAN: 1. Acute hypercarbic and hypoxemic respiratory failure due to pseudomonal pneumonia, also this patient has flash pulmonary edema probably due to an allergic reaction to Rituxan, he was extubated a few days ago. He seems to be doing a little bit better. We will continue with same management. 2. Flash pulmonary edema, as above, continue with diuresis. So far, we have removed around 9.5 L of fluid. 3. Severe protein calorie malnutrition. Continue with same management. Protein intake and follow. 4. Pseudomonal pneumonia. Continue with cefepime. 5. Hypokalemia. Today is normal. 6. Anemia stable. 7. Chronic obstructive pulmonary disease, not in exacerbation. 8. Refractory diffuse large B-cell lymphoma, this patient has been evaluated by Hematology/Oncology Department. They have recommended hospice for this patient as there are no real treatment options for him at this moment, I discussed this with the patient. He still wants to be full code and we will request hospice to talk to the patient, but he states that once he is feeling better, he will talk to them. cc: Leroy Santoro MD
--- NOTE | 2019-05-24 17:11 | PULMONOLOGY PROGRESS NOTE ---
DATE: 05/24/2019 SUBJECTIVE: The patient is awake, alert, oriented. He reports he feels well today. He has no specific complaints. OBJECTIVE: Vital Signs: The patient has been afebrile for the last 24 hours. Blood pressure 98/62, heart rate 108, respiratory rate 16, oxygen saturation 99% on 3 L per nasal cannula. HEENT: Pupils are equal and reactive. Oropharynx appears clear. Neck: Supple. Chest: Reveals diminished breath sounds in both lung bases with bibasilar crackles. Breath sounds are significantly diminished on the left base. Cardiac exam: S1, S2. Abdomen: Soft. Extremities: Reveal trace edema. LABORATORIES: Chest x-ray reveals better inflation/expansion with bibasilar infiltrates and a small to moderate left-sided. White blood count 12.53, hemoglobin 7.7, platelet count 191,000. Sodium 139, potassium 3.7, chloride 92, bicarbonate 40, BUN 12, creatinine 0.2. IMPRESSIONS: A 49-year-old with: 1. Chronic obstructive pulmonary disease. 2. Hypoxemic and hypercapnic respiratory failure. 3. Pseudomonal pneumonia. 4. Refractory diffuse large B-cell lymphoma which has relapsed. Hospice has been recommended by Oncology. PLAN: 1. Continue oxygen for hypoxemic respiratory failure. 2. Continue cefepime for Pseudomonas pneumonia. 3. Anticipate hospice evaluation and end of life discussions. The patient would like this to be performed after the . cc: Chad Urena MD
[2019-05-24] MEDS: AMBIEN PO SCH (20:25)
[2019-05-25] MEDS: MORPHINE IV PRN ×6 (00:22→20:46)
[2019-05-25] MEDS: MAXIPIME 2 GM/NS 2 GM/100 ML IVPB IV SCH ×2 (01:39→13:47)
[2019-05-25] MEDS: PERCOCET-10 PO PRN ×6 (02:30→23:16)
[2019-05-25] MEDS: ATIVAN PO PRN ×2 (05:29→19:00)
[2019-05-25] MEDS: LOVENOX SUBQ SCH (06:13)
[2019-05-25] MEDS: PRILOSEC PO SCH (06:13)
[2019-05-25 06:51] LABS: BASO# 0.05 X1000 (0.0-0.2); BASO% 0.3 % (0.0-0.8); EOS# 0.52 X1000 (0.0-0.7); EOS% 3.6 % (0.0-10.0); HEMATOCRIT 29.4 % (42.0-52.0); HEMOGLOBIN 8.3 g/dL (14.0-18.0); IMM GRAN# 0.11 X1000 (0.0-0.04); IMM GRAN% 0.8 % (0.0-0.5); LYMPH# 2.23 X1000 (1.2-3.4); LYMPH% 15.4 % (20.5-51.1); MCH 27.7 PG (27-31); MCHC 28.2 g/dL (33-37); MONO# 1.94 X1000 (0.11-0.59); MONO% 13.4 % (1.7-9.3); MPV 11.2 FL (7.4-10.4); NEUT# 9.61 X1000 (1.4-6.5); NEUT% 66.5 % (42.2-75.2); PLT 210 X1000 (130-400); RDW 20.4 % (11.5-14.5); WBC 14.46 X1000 (4.8-10.8)
[2019-05-25 07:52] LABS: ESTIMATED GFR > 60
[2019-05-25 07:54] LABS: AGAP 9; BUN 12 mg/dL (8-22); CALCIUM 8.4 mg/dL (8.8-10.2); CHLORIDE 89 mmol/L (98-107); COSMO 269; CREATININE 0.3 mg/dL (0.7-1.2); GLUCOSE 113 mg/dL (70-104); POTASSIUM 3.4 mmol/L (3.5-5.1); SODIUM 134 mmol/L (136-145); TCO2 36 mmol/L (25-35)
[2019-05-25] MEDS: FERROUS SULFATE PO SCH ×2 (08:16→20:48)
[2019-05-25] MEDS: LOPRESSOR PO SCH ×2 (08:16→20:47)
--- NOTE | 2019-05-25 08:27 | Diag Imaging Result Doc PS360 ---
CHEST-1 VIEW - 05/25/2019 INDICATION: SOB COMPARISON: 05/24/2019 FINDINGS: Stable right-sided chest port. Stable diffuse central infiltrates/pulmonary edema. Stable trace right and moderate left basilar pleural effusion. Stable mild cardiomegaly and pulmonary vascular congestion. IMPRESSION: No change from prior. Electronically signed by Feliz Guerrero 05/25/2019 8:24 AM
--- NOTE | 2019-05-25 09:10 | PROGRESS NOTE ---
DATE: 05/25/2019 SUBJECTIVE: At the moment of my physical exam, this patient was sleeping. I talked to the who is at the bedside, and apparently he had a better night, and he just received morphine and fell asleep. He just talked to her about 50 minutes ago without any problems. The plan is to go ahead tomorrow and ask Hospice to evaluate this patient so he can go home. PHYSICAL EXAMINATION: Vital Signs: Temperature 97.9 degrees, pulse 113, respiratory rate 18, blood pressure 110/65, oxygen saturation 94% on 3 L of nasal cannula. HEENT: Head normocephalic. No trauma. PERRLA. Chest: Bilateral rhonchi at the bases with some crepitus. Decreased breath sounds at the left base with crackles. Some tenderness to palpation at the level of chest area, in the frontal area. Abdomen: Soft, nontender, nondistended. Positive bowel sounds. Extremities: There is 2+ extremity edema from the mid leg down to his feet. Neurological: The patient is sleepy. No focal deficits, but generalized weakness. LABORATORY DATA: WBC 14.4, hemoglobin 8.3, hematocrit 39.4, platelets 210,000. Sodium 134, potassium 3.4, chloride 89, bicarbonate 36, BUN 12, creatinine 0.3, glucose 113, calcium 8.4. ASSESSMENT AND PLAN: 1. Acute hypercarbic and hypoxemic respiratory failure due to pseudomonal pneumonia. Also, this patient had flash pulmonary edema, probably due to an allergic reaction to Rituxan. He was extubated a few days ago. He seems to be breathing better. Will continue with the same management. So far, we have a negative balance of 10.4 liters. 2. Flash pulmonary edema. As above. Continue with diuresis. So far, we have removed a little bit more of 10.4 liters. 3. Severe protein calorie malnutrition. Continue with the same management, protein intake, and follow. 4. Pseudomonal pneumonia. Continue with cefepime. 5. Hypokalemia. Today, it is a little bit low. It is going to be replaced. 6. Anemia, stable. 7. Chronic obstructive pulmonary disease, not in exacerbation. 8. Refractory diffuse large B-cell lymphoma. The patient has been evaluated by Hematology/Oncology Department. They have recommended hospice for this patient as there are no real treatment options for him at this moment. I discussed this with them. I will get Hospice to talk to the patient tomorrow. We are still treating him. Pulmonary Department also on board. No fever documented. cc: Leroy Santoro MD
[2019-05-25] MEDS: UMECLIDIN inhalation SCH (09:12)
[2019-05-25] MEDS: FLUTICASONE inhalation SCH (09:12)
[2019-05-25] MEDS: VILANTER inhalation SCH (09:12)
[2019-05-25] MEDS: ATROVENT NEB INH SCH ×3 (09:13→22:25)
[2019-05-25] MEDS: XOPENEX NEB INH SCH ×3 (09:13→22:25)
[2019-05-25] MEDS: LASIX IV SCH ×2 (09:46→21:02)
[2019-05-25] MEDS ORDERED: KLOR-CON PO ONE (14:36)
[2019-05-25] MEDS: AMBIEN PO SCH (20:46)
[2019-05-26] MEDS: MORPHINE IV PRN ×6 (02:34→22:42)
[2019-05-26] MEDS: MAXIPIME 2 GM/NS 2 GM/100 ML IVPB IV SCH ×2 (02:34→14:59)
[2019-05-26] MEDS: PERCOCET-10 PO PRN ×6 (03:30→23:33)
--- NOTE | 2019-05-26 06:24 | Diag Imaging Result Doc PS360 ---
CHEST-1 VIEW - 05/26/2019 INDICATION: SOB COMPARISON: 05/25/2019 FINDINGS: There is been slight increase in the density of the diffuse bilateral hazy infiltrates/edema. Slight worsening, moderate to large left pleural effusion. Stable small right pleural effusion. IMPRESSION: Worsening from prior. Electronically signed by Feliz Guerrero 05/26/2019 6:21 AM
[2019-05-26] MEDS: PRILOSEC PO SCH (06:42)
[2019-05-26] MEDS: LOVENOX SUBQ SCH (06:43)
[2019-05-26] MEDS: ATIVAN PO PRN ×3 (07:29→19:40)
[2019-05-26 07:52] LABS: MAGNESIUM 1.3 mg/dL (1.5-2.7); PHOSPHORUS 2.4 mg/dL (2.7-4.5)
[2019-05-26 08:00] LABS: AGAP 9; BUN 13 mg/dL (8-22); CALCIUM 8.6 mg/dL (8.8-10.2); CHLORIDE 92 mmol/L (98-107); COSMO 278; CREATININE 0.3 mg/dL (0.7-1.2); ESTIMATED GFR > 60; GLUCOSE 99 mg/dL (70-104); POTASSIUM 3.6 mmol/L (3.5-5.1); SODIUM 139 mmol/L (136-145); TCO2 38 mmol/L (25-35)
[2019-05-26 08:54] LABS: BASO# 0.08 X1000 (0.0-0.2); BASO% 0.6 % (0.0-0.8); EOS# 0.29 X1000 (0.0-0.7); EOS% 2.2 % (0.0-10.0); HEMATOCRIT 26.2 % (42.0-52.0); HEMOGLOBIN 7.5 g/dL (14.0-18.0); IMM GRAN# 0.07 X1000 (0.0-0.04); IMM GRAN% 0.5 % (0.0-0.5); LYMPH# 2.05 X1000 (1.2-3.4); LYMPH% 15.3 % (20.5-51.1); MCH 28.3 PG (27-31); MCHC 28.6 g/dL (33-37); MCV 98.9 FL (81-99); MONO# 2.38 X1000 (0.11-0.59); MONO% 17.8 % (1.7-9.3); MPV 11.1 FL (7.4-10.4); NEUT# 8.51 X1000 (1.4-6.5); NEUT% 63.6 % (42.2-75.2); PLT 258 X1000 (130-400); RBC 2.65 XMIL (4.7-6.1); RDW 20.5 % (11.5-14.5); WBC 13.38 X1000 (4.8-10.8)
[2019-05-26] MEDS ORDERED: MAGNESIUM SULFATE 2 GM/S.W.I. 2 GM/50 ML IVPB IV ONE (09:10)
[2019-05-26] MEDS ORDERED: POTASSIUM PHOSPHATE 15 MMOL in NS 250 ML IV ONE (09:11)
[2019-05-26] MEDS: ATROVENT NEB INH SCH ×3 (09:54→21:31)
[2019-05-26] MEDS: XOPENEX NEB INH SCH ×3 (09:54→21:31)
[2019-05-26] MEDS: FERROUS SULFATE PO SCH ×2 (10:01→21:22)
[2019-05-26] MEDS: LOPRESSOR PO SCH ×2 (10:01→21:22)
[2019-05-26] MEDS: LASIX IV SCH ×2 (10:01→21:26)
--- NOTE | 2019-05-26 10:28 | PROGRESS NOTE ---
DATE: 05/26/2019 SUBJECTIVE: The patient is awake and oriented. The is at the bedside. He has a lesion of his right cheek that has been oozing some blood. I think this is a scratch lesion. His magnesium and phosphorus are low, and I will replace it. So far, we have a negative balance of 13.3 L. X- ray looks a little bit worse compared with yesterday, even though he is feeling a little bit better. Continue with the same management. Continue with pain medication. Hopefully today, hospice will be on board. OBJECTIVE: Vital Signs: Temperature 98.4 degrees, pulse 116, respiratory rate 20, blood pressure 114/69, oxygen saturation 96 on 3 L of nasal cannula. HEENT: Head normocephalic. No trauma. PERRLA. Chest: Bilateral rhonchi at the bases with some crepitus. Decreased breath sounds bilaterally, especially at the left base with crackles. Some tenderness to palpation at the level of the chest area in the anterior part. Abdomen: Soft, nontender, nondistended. Positive bowel sounds. Extremities: There is 2+ extremity edema from the mid leg down to his feet. Neurological: This patient is awake, alert, he is oriented, he is following commands. LABORATORY DATA: WBC 13.3, hemoglobin 7.5, hematocrit 26.2, platelets 258,000. Sodium 139, potassium 3.6, chloride 92, bicarbonate 38, BUN 13, creatinine 0.3, glucose 99, calcium 8.6. Phosphorus 2.4, magnesium is 1.3. ASSESSMENT AND PLAN: 1. Acute hypercarbic and hypoxemic respiratory failure due to pseudomonal pneumonia. Also, this patient had flash pulmonary edema, probably due to an allergic reaction to Rituxan. He was extubated a few days ago. He seems to be breathing better. His x-ray looks a little bit worse though, even though we have a negative balance of 13.3 liters. 2. Flash pulmonary edema. As above. 3. Severe protein calorie malnutrition. Will continue the same management, protein intake, and followup. 4. Pseudomonas pneumonia. Continue with cefepime. 5. Hypokalemia, resolved. 6. Hypophosphatemia with hypomagnesemia. I will replace both. 7. Anemia, stable. Actually dropped a little bit, but I will monitor. 8. Chronic obstructive pulmonary disease, not in exacerbation. 9. Refractory diffuse large B-cell lymphoma. This patient has been evaluated by Hematology/Oncology Department. They have recommended hospice for this patient as there are no real treatment options for this patient at this moment. We have been discussing this for the past few days. Hopefully, hospice will be on board today. Continue with the same management. He is feeling a little bit better. He is still complaining of pain. 10. Chronic pain. Continue with the same management. cc: Leroy Santoro MD
[2019-05-26] MEDS: UMECLIDIN inhalation SCH (15:35)
[2019-05-26] MEDS: FLUTICASONE inhalation SCH (15:35)
[2019-05-26] MEDS: VILANTER inhalation SCH (15:35)
--- NOTE | 2019-05-26 18:39 | PULMONOLOGY PROGRESS NOTE ---
DATE: 05/26/2019 SUBJECTIVE: The patient remains in the bed. He is weak and has difficulty standing. OBJECTIVE: The patient has been afebrile for the last 24 hours. Blood pressure 108/68, heart rate 120, respiratory rate 19, oxygen saturation 94% on room air. HEENT: Pupils are equal and reactive. Oropharynx appears clear. Neck is supple. Chest reveals diminished breath sounds in both lung bases. Cardiac exam: S1, S2 with increased rate. Abdomen is soft. Extremities reveal significant muscle wasting. LABORATORY DATA: White blood count 13.38, hemoglobin 7.5, platelet count 258,000. Sodium 139, potassium 3.6, chloride 92, bicarbonate 38, BUN 13, creatinine 0.3, magnesium 1.3, phosphorus 2.4. DIAGNOSTIC DATA: Chest x-ray reveals slight increased infiltrates/edema bilaterally with slight worsening of pleural effusion despite significant diuresis over the last 24-48 hours. IMPRESSION: A 49-year-old with: 1. Chronic obstructive pulmonary disease. 2. Refractory diffuse large B-cell lymphoma. 3. Hypoxemic and hypercapnic respiratory failure. 4. Pseudomonal pneumonia. 5. Bilateral effusions. 6. Poor performance status. DISCUSSION: A 49-year-old with problems outlined above. The patient has elected hospice, but also wants rehabilitation so that he can get stronger. His overall prognosis appears poor. RECOMMENDATION: 1. Anticipate evaluation and admission to hospice at the time of discharge. 2. Continue current antibiotic regimen. 3. Prognosis remains poor, given refractory B-cell lymphoma, COPD and pseudomonal pneumonia. cc: Chad Urena MD
--- NOTE | 2019-05-26 19:22 | HEMO/ONC PROGRESS NOTE ---
DATE: 05/26/2019 SUBJECTIVE: Mr. Beltran and his are both in the hospital room. They are currently speaking to [facility]. Reiterated that we think that this is his best option. Reiterated that we have no further treatment options and that he has aggressive disease. We would like him to be comfortable and around his family, and he would like the same thing at this time. We did discuss that even though he is on hospice, they can still contact us if needed. PLAN: The plan, then, is for the patient to be discharged with hospice once everything is finalized. Dictated by BEVERLY Hand for Rosa Epps MD cc: Rosa Epps MD I have seen and examined the patient and the above note reflects my history, physical exam, assessment and plan. Rosa SCHULTE
[2019-05-26] MEDS: AMBIEN PO SCH (21:22)
[2019-05-27] MEDS: MORPHINE IV PRN ×3 (02:47→10:49)
[2019-05-27] MEDS: MAXIPIME 2 GM/NS 2 GM/100 ML IVPB IV SCH (02:47)
[2019-05-27] MEDS: ATIVAN PO PRN ×2 (03:43→07:54)
[2019-05-27] MEDS: PERCOCET-10 PO PRN ×3 (03:43→11:51)
[2019-05-27] MEDS: PRILOSEC PO SCH (06:18)
[2019-05-27] MEDS: LOVENOX SUBQ SCH (06:18)
--- NOTE | 2019-05-27 06:31 | Diag Imaging Result Doc PS360 ---
EXAM: CHEST-1 VIEW HISTORY: SOB TECHNIQUE: Single view COMPARISON: 05/26/2019 FINDINGS: Small right pleural effusion with a small to moderate left pleural effusion. These are unchanged. There are dense bilateral infiltrates which are slightly less dense. Improved aeration in the lungs.. Heart is mildly enlarged. No change in the right portacatheter. No pneumothorax. IMPRESSION: Slight interval improvement. Electronically signed by Yaakov Whitlock 05/27/2019 6:29 AM
[2019-05-27 07:22] VITALS: BP 109/68
[2019-05-27 07:44] LABS: BASO# 0.08 X1000 (0.0-0.2); BASO% 0.6 % (0.0-0.8); EOS# 0.36 X1000 (0.0-0.7); EOS% 2.6 % (0.0-10.0); HEMATOCRIT 25.5 % (42.0-52.0); HEMOGLOBIN 7.2 g/dL (14.0-18.0); IMM GRAN# 0.09 X1000 (0.0-0.04); IMM GRAN% 0.7 % (0.0-0.5); LYMPH# 2.24 X1000 (1.2-3.4); LYMPH% 16.4 % (20.5-51.1); MCH 27.9 PG (27-31); MCHC 28.2 g/dL (33-37); MCV 98.8 FL (81-99); MONO# 2.31 X1000 (0.11-0.59); MONO% 16.9 % (1.7-9.3); MPV 10.7 FL (7.4-10.4); NEUT# 8.62 X1000 (1.4-6.5); NEUT% 62.8 % (42.2-75.2); PLT 295 X1000 (130-400); RBC 2.58 XMIL (4.7-6.1); RDW 20.4 % (11.5-14.5)
[2019-05-27] MEDS: LOPRESSOR PO SCH ×2 (07:50→11:52)
[2019-05-27] MEDS: FERROUS SULFATE PO SCH ×2 (07:50→11:52)
[2019-05-27] MEDS: LASIX IV SCH ×2 (07:52→11:52)
[2019-05-27 07:59] LABS: AGAP 6; BUN 12 mg/dL (8-22); CHLORIDE 89 mmol/L (98-107); COSMO 267; CREATININE 0.3 mg/dL (0.7-1.2); ESTIMATED GFR > 60; GLUCOSE 76 mg/dL (70-104); MAGNESIUM 1.6 mg/dL (1.5-2.7); POTASSIUM 4.8 mmol/L (3.5-5.1); SODIUM 134 mmol/L (136-145); TCO2 39 mmol/L (25-35)
[2019-05-27] MEDS: ATROVENT NEB INH SCH (09:02)
[2019-05-27] MEDS: UMECLIDIN inhalation SCH (09:03)
[2019-05-27] MEDS: FLUTICASONE inhalation SCH (09:03)
[2019-05-27] MEDS: XOPENEX NEB INH SCH (09:03)
[2019-05-27] MEDS: VILANTER inhalation SCH (09:03)
[2019-05-27 09:22] LABS: ANISOCYTOSIS 2+; BASO 1 % (0-1); EOS 2 % (1-10); HYPOCHROM 2+; LYMPHS 14 % (21-51); MONO 14 % (1-9); POLYCHROM OCCASIONAL; SEGS 66 % (42-75)
[2019-05-27 09:24] LABS: POIKILOCYTOSIS 1+
--- NOTE | 2019-05-29 20:35 | DISCHARGE SUMMARY ---
ADMISSION DATE: 05/18/2019 DISCHARGE DATE: 05/27/2019 DIAGNOSES: 1. Acute hypercarbic hypoxemic respiratory failure due to pseudomonal pneumonia. 2. Flash pulmonary edema probably due to allergic reaction to Rituxan requiring intubation in a person who is now extubated. 3. Severe protein calorie malnutrition. 4. Pseudomonas pneumonia. 5. Hypokalemia resolved. 6. Hypophosphatemia and hypomagnesemia resolved. 7. Anemia. 8. Chronic obstructive pulmonary disease not in exacerbation. 9. Refractory diffuse large B-cell lymphoma. 10. Chronic pain. CONSULTS: Dr. Sykes, pulmonology, Dr. Tucker, Oncology. HOSPITAL COURSE: Mr. Ni presented to the emergency room after having what was felt to be flash pulmonary edema and allergic reaction to chemotherapy at the infusion center. He was initially placed on BiPAP with a pulmonary oncology consult received antibiotic coverage of cefepime and vancomycin. Sputum culture grew out Pseudomonas with blood cultures having no growth after 5 days. He continued on antibiotic coverage of cefepime. Electrolytes were followed and treated as appropriate. He was diuresed for a negative total of 20,543 cumulative. He required intubation but was able to be extubated and has done well. Palliative Care did meet with the patient. Code status was discussed and the patient did request a full code status. He and the met with [facility] and they did qualify and he is being discharged home under their care. It was discussed with the patient per Oncology that they had no further treatment options, that he did have aggressive disease. They recommended hospice and comfort care as well. DISCHARGE VITAL SIGNS: Blood pressure is 109/68 with a heart rate of 100, respirations 19, temperature 98.9 degrees with O2 saturations 96% on 3 L nasal cannula. DISCHARGE MEDICATIONS: Ambien 10 mg p.o. at bedtime, ferrous sulfate 325 p.o. b.i.d., lorazepam 0.5 p.o. t.i.d., Trelegy Ellipta 1 inhalation daily, Ventolin HFA 1 inhalation daily, Lasix 40 mg p.o. daily, Levaquin 500 mg p.o. daily for 5 days, Lopressor 12.5 p.o. b.i.d., Percocet 10 one q.4 hours p.r.n., Prilosec 40 daily, Tylenol 650 q.6 hours p.r.n. The patient is being discharged home under the care of [facility] with family members. TIME SPENT: Greater than 30 minutes. Dictated by ROBERT Dolan for Leroy Santoro MD cc: ROBERT Dolan MD
== END 2019-05-27 13:00 | disposition hospice, home (50) | DRG 208 ==
LOC: ED 12:04 → SUATTDRO 16:23 → ICU 16:23 → 2N 05-22 15:59 → 3N 05-25 11:45
PROVIDERS: ATTEND Internal Medicine